=== PATIENT | male | born 1970 | race Caucasian/White ===

== ENCOUNTER 2019-12-29 15:36 | Emergency (ER) | payer OTHER, SELFPAY ==
--- NOTE | 2019-12-29 15:58 | XR_ITS ---
EXAMINATION: XR CHEST CLINICAL INFORMATION: Shortness of breath COMPARISON: None TECHNIQUE: Frontal view of the chest was obtained. FINDINGS: The cardiac and mediastinal contours are normal. The lungs are clear. There is no pleural effusion or pneumothorax. There is a left shoulder prosthesis. Bony structures are otherwise unremarkable. IMPRESSION: No evidence for acute disease in the chest.
--- NOTE | 2019-12-29 16:14 | ED_ITS ---
HPI - URI/Sore Throat General Chief Complaint: Dyspnea <CYNTHIA Hanson - Last Filed: 12/29/19 16:49> Stated Complaint: Sob <CYNTHIA Hanson - Last Filed: 12/29/19 16:49> Time Seen by Provider: 12/29/19 15:57 <CYNTHIA Hanson - Last Filed: 12/29/19 16:49> Source: patient <CYNTHIA Hanson - Last Filed: 12/29/19 16:49> Mode of arrival: ambulatory <CYNTHIA Hanson - Last Filed: 12/29/19 16:49> Limitations: no limitations <CYNTHIA Hanson - Last Filed: 12/29/19 16:49> History of Present Illness HPI Narrative: 49 y/o male presenting with cough, SOB, nasal congestion, upset stomach since yesterday. No known COVID exposure, he would like to get texted because he lives with his elderly mother. <CYNTHIA Hanson - Last Filed: 12/29/19 16:49> MD elicited complaint: cough and nasal congestion <CYNTHIA Hanson - Last Filed: 12/29/19 16:49> Onset (ago): day(s) (1) <CYNTHIA Hanson - Last Filed: 12/29/19 16:49> Consistency: intermittent <CYNTHIA Hanson - Last Filed: 12/29/19 16:49> Severity: mild <CYNTHIA Hanson - Last Filed: 12/29/19 16:49> Able to tolerate fluids by mouth: Yes <CYNTHIA Hanson - Last Filed: 12/29/19 16:49> Exacerbating factors: nothing <CYNTHIA Hanson - Last Filed: 12/29/19 16:49> Relieving factors: nothing <CYNTHIA Hanson - Last Filed: 12/29/19 16:49> Associated symptoms: headache, nasal congestion and cough <CYNTHIA Hanson - Last Filed: 12/29/19 16:49> Related Data Home Medications: Previous Rx's Medication Instructions Recorded albuterol sulfate 2 inh INHALATION Q4-6H PRN #1 ea NS 12/29/19 <CYNTHIA Hanson - Last Filed: 12/29/19 16:49> Allergies/Adverse Reactions: Allergies Allergy/AdvReac Type Severity Reaction Status Date / Time No Known Allergies Allergy Mild UNKNOWN Verified 12/29/19 16:31 <CYNTHIA Hanson - Last Filed: 12/29/19 16:49> Review of Systems Review of Systems: Constitutional: No Fever, No Chills ENT/Mouth: No sore throat, + Rhinorrhea, No Swallowing Difficulty Eyes: No Eye Pain, No Swelling, No Redness Cardiovascular: No Chest Pain, positive SOB, No Orthopnea, No Edema Respiratory: No Cough, No Sputum, + Wheezing, + dyspnea Gastrointestinal: No Nausea, No Vomiting, No Diarrhea, No abdominal Pain, No Hematochezia, No Melena Genitourinary: No Dysuria, No Urinary Frequency, No Hematuria Musculoskeletal: No joint pain, No Myalgias Skin: No Skin Lesions, No rash Neuro: No Weakness, No Numbness, No Dizziness, No Headache Psych: No Anxiety/Panic, + Depression related to COVID Heme/Lymph: No Bruising, No Lymphadenopathy Endocrine: No Polyuria, No Polydipsia All other 10 point ROS are negative. <CYNTHIA Hanson - Last Filed: 12/29/19 16:49> [facility] Past Medical History Medical History: Medical History (Updated 12/29/19 @ 16:44 by CYNTHIA Hanson) Bipolar 1 disorder <CYNTHIA Hanson - Last Filed: 12/29/19 16:49> Surgical History: Surgical History (Updated 12/29/19 @ 16:30 by Shannon Hussein) H/O knee surgery H/O shoulder surgery <CYNTHIA Hanson - Last Filed: 12/29/19 16:49> Social History Social History: Social History (Updated 12/29/19 @ 16:23 by CYNTHIA Hanson) Alcohol intake: never Smoking Status: Current every day smoker Use of substances other than those prescribed or required for medical reasons: No Advance Directives: No Advance Directives Information Provided: No <CYNTHIA Hanson Last Filed: 12/29/19 16:49> Physical Exam Vital Signs and I&O and Narrative: Vital Signs and I&O: Vital Signs Temp 99.7 F 12/29/19 16:28 Pulse 69 12/29/19 16:28 Resp 16 12/29/19 16:28 BP 109/64 12/29/19 16:28 Pulse Ox 98 12/29/19 16:28 Intake & Output 12/28/19 12/29/19 12/29/19 18:59 06:59 18:59 Weight 99.79 kg Body Mass Index 33.4 Appearance: Alert. Oriented X3. No acute distress. Eyes: Pupils equal, round and reactive to light. ENT: Pharynx normal. Neck: Normal inspection. Neck supple. CVS: Normal heart rate and rhythm. Pulses normal. Respiratory: No respiratory distress. expiratory wheezes throughout left lung, no distress, no rhonchi Abdomen: Soft and nontender. +BS x4 Skin: Skin warm and dry. Normal skin color. Normal skin turgor. No rashes. Extremities: No lower extremity edema. Neuro: Oriented X 3. No motor deficit. No sensory deficit. <CYNTHIA Hanson - Last Filed: 12/29/19 16:49> Vital Signs and I&O: Vital Signs Temp 99.7 F 12/29/19 16:28 Pulse 69 12/29/19 16:28 Resp 16 12/29/19 16:28 BP 109/64 12/29/19 16:28 Pulse Ox 98 12/29/19 16:28 Intake & Output 12/28/19 12/29/19 12/29/19 18:59 06:59 18:59 Weight 99.79 kg Body Mass Index 33.4 <Tony Flores DO - Last Filed: 12/29/19 17:02> Course Course Hospital Course: non-toxic appearing, VSS. Will test for COVID and get CXR given wheezes. denies hx ashtma or COPD. active smoker for the last 5 years. <CYNTHIA Hanson - Last Filed: 12/29/19 16:49> MDM - URI/Sore Throat Differential Diagnosis Differential diagnosis: Likely upper respiratory infection, sinusitis, viral infection, bronchitis, influenza and pharyngitis <CYNTHIA Hanson - Last Filed: 12/29/19 16:49> Critical Care Time Critical Care Time Critical Care Time: No <CYNTHIA Hanson - Last Filed: 12/29/19 16:49> Discharge Plan Discharge Clinical Impression: Acute viral syndrome <CYNTHIA Hanson Last Filed: 12/29/19 16:49> Patient Disposition: Home, Self-Care <CYNTHIA Hanson Last Filed: 12/29/19 16:49> Instructions: Viral Syndrome (ED), Wheezing (ED) <CYNTHIA Hanson - Last Filed: 12/29/19 16:49> Additional Instructions: You were tested for COVID-19 today. We will call you with the results in the next 2-3 days. Use albuterol inhaler and over the counter cold/flu medications for your symptoms. If you symptoms don't improve or worsen, come back to the ER or call 911. Follow up with your Primary Care Doctor this week. Stop smoking. <CYNTHIA Hanson - Last Filed: 12/29/19 16:49> Prescriptions: New albuterol sulfate 90 mcg/actuation aerosol powdr breath activated 2 inh inhalation Q4-6H PRN (Reason: shortness of breath or wheezing) Qty: 1 RF: 0 <CYNTHIA Hanson Last Filed: 12/29/19 16:49> Stand Alone Forms: Work/School Release <CYNTHIA Hanson Last Filed: 12/29/19 16:49>
[2019-12-29 16:28] VITALS: BP 109/64; PULSE 69; RESP 16; TEMP 37.6; O2SAT 98; BMI 33.4
== END 2019-12-29 17:07 | disposition home or self-care (01) ==
PROVIDERS: Physician Assistant; Emergency Provider Emergency Medicine
DX: B34.9 Viral infection, unspecified (principal); Z20.828 Contact with and (suspected) exposure to other viral communicable diseases; R50.9 Fever, unspecified
CPT/HCPCS: 36415; 71045; 87635; 99283; 99284

== ENCOUNTER 2020-03-04 14:13 | Outpatient (REF) | payer OTHER, SELFPAY | END 2020-03-04 14:14 | disposition home or self-care (01) | LOC: HO.LAB 14:13 | PROVIDERS: PCP Physician Assistant; Visit Provider Internal Medicine | DX: Z20.828 Contact with and (suspected) exposure to other viral communicable diseases (principal) | CPT/HCPCS: C9803; U0003 ==

== ENCOUNTER 2020-09-11 09:09 | Outpatient (REF) | payer OTHER, SELFPAY ==
[2020-09-11 10:28] LABS: Hematocrit 42.6 % (42-52); Mean Corpuscular HGB Conc 32.9 g/dl (31.0-36.0); Mean Corpuscular Volume 100.5 fL (80-98); Mean Platelet Volume 9.9 fL (9.4-12.4); Platelet Count 278 X10*3/uL (160-400); Red Blood Count 4.24 X10*6/uL (4.60-5.80); Red Cell Distribution Width 12.7 % (11.0-16.0); White Blood Count 6.6 X10*3/uL (4.8-10.8)
[2020-09-11 10:51] LABS: Alanine Aminotransferase 23 U/L (0-40); Albumin Level 4.5 g/dL (3.5-5.0); Alkaline Phosphatase 71 U/L (39-117); Anion Gap 12 (12-20); Aspartate Amino Transferase 21 U/L (5-37); Bilirubin Total 0.2 mg/dL (0.0-1.0); Blood Urea Nitrogen 15 mg/dL (9-16); Calcium 10.5 mg/dL (8.4-10.2); Carbon Dioxide 28 mmol/L (22-29); Chloride 107 mmol/L (96-108); Cholesterol 209 mg/dL; Estimated Glomerular Filt Rate > 60; Glucose Fasting 135 mg/dL (60-99); HDL Cholesterol 46 mg/dL; LDL Cholesterol Calculated 129 mg/dl; Lithium 0.67 mmol/L (0.60-1.20); Potassium 4.5 mmol/L (3.3-5.1); Sodium 142 mmol/L (135-145); Total Protein 6.7 g/dL (6.5-8.0); Triglycerides 172 mg/dL
[2020-09-11 11:13] LABS: TSH reflex Free T4 1.87 uIU/mL (0.32-4.0)
== END 2020-09-11 09:10 | disposition home or self-care (01) ==
LOC: HO.10HDL 09:09
PROVIDERS: Absent Provider Clinical Nurse Specialist Psychiatric/Mental Health, Adult; Visit Provider Physician Assistant
DX: I10 Essential (primary) hypertension (principal); F31.9 Bipolar disorder, unspecified; Z13.29 Encounter for screening for other suspected endocrine disorder; Z79.899 Other long term (current) drug therapy
CPT/HCPCS: 36415; 80053; 80061; 80178; 84443; 85027

== ENCOUNTER 2021-03-11 12:15 | Outpatient (REF) | payer OTHER, SELFPAY ==
[2021-03-11 14:06] LABS: Estimated Average Glucose 94 mg/dL; Hemoglobin A1c % 4.9 %
[2021-03-11 14:07] LABS: Appearance Urine CLEAR; Color Urine YELLOW; Glucose Urine UA NEG (NEG); Leukocyte Esterase Urine NEG (NEG); Nitrite Urine NEG (NEG); Specific Gravity - Urine <= 1.005 (1.005-1.025); Urine Blood NEG (NEG); Urine Ketones NEG (NEG); Urine Protein NEG (NEG-TRACE)
[2021-03-11 14:09] LABS: Creatinine Urine 64.08 mg/dL; Osmolality Urine 262 mosm/kg (373-1093); Total Protein Urine Random < 7 mg/dL (<12)
[2021-03-11 14:16] LABS: Calcium 10.9 mg/dL (8.4-10.2)
[2021-03-11 14:17] LABS: Anion Gap 12 (12-20); Blood Urea Nitrogen 11 mg/dL (9-16); Calcium 10.5 mg/dL (8.4-10.2); Carbon Dioxide 26 mmol/L (22-29); Chloride 105 mmol/L (96-108); Estimated Glomerular Filt Rate > 60; Potassium 4.4 mmol/L (3.3-5.1); Sodium 139 mmol/L (135-145)
[2021-03-11 14:37] LABS: Vitamin D 25-OH Total 34.4 ng/mL (>30)
[2021-03-12 16:31] LABS: Calcium (PTHI) 10.7 mg/dL (8.6-10.3); PTHI 50 pg/mL (14-64)
== END 2021-03-11 12:16 | disposition home or self-care (01) ==
LOC: HO.10HDL 12:15
PROVIDERS: Internal Medicine Nephrology; Visit Provider Physician Assistant
DX: E83.52 Hypercalcemia (principal); R73.09 Other abnormal glucose
CPT/HCPCS: 36415; 80051; 81003; 82306; 82310; 82565; 83036; 83935; 83970; 84156; 84520; 84550

== ENCOUNTER 2021-11-17 10:14 | Outpatient (REF) | payer OTHER, SELFPAY ==
[2021-11-17 11:50] LABS: Hematocrit 43.3 % (42.0-52.0); Hemoglobin 14.5 g/dl (14.0-18.0); Mean Corpuscular HGB Conc 33.5 g/dl (31.0-36.0); Mean Corpuscular Hemoglobin 32.1 pg (27.0-33.0); Mean Corpuscular Volume 95.8 fL (80.0-98.0); Platelet Count 285 X10*3/uL (160-400); Red Blood Count 4.52 X10*6/uL (4.60-5.80); Red Cell Distribution Width 12.5 % (11.0-16.0); White Blood Count 8.8 X10*3/uL (4.8-10.8)
[2021-11-17 12:17] LABS: Estimated Average Glucose 88 mg/dL; Hemoglobin A1c % 4.7 %
[2021-11-17 12:42] LABS: Alanine Aminotransferase 25 U/L (0-40); Albumin Level 4.4 g/dL (3.5-5.0); Alkaline Phosphatase 60 U/L (39-117); Anion Gap 13 (12-20); Aspartate Amino Transferase 22 U/L (5-37); Bilirubin Total 0.5 mg/dL (0.0-1.0); Blood Urea Nitrogen 13 mg/dL (9-16); Carbon Dioxide 25 mmol/L (22-29); Chloride 106 mmol/L (96-108); Cholesterol 230 mg/dL; Estimated Glomerular Filt Rate > 60; Glucose Fasting 103 mg/dL (60-99); HDL Cholesterol 36 mg/dL; LDL Cholesterol Calculated 147 mg/dl; Potassium 4.3 mmol/L (3.3-5.1); Sodium 140 mmol/L (135-145); Total Protein 6.9 g/dL (6.5-8.0); Triglycerides 236 mg/dL
[2021-11-17 12:47] LABS: Syphilis Screen Nonreactive (Nonreactive)
[2021-11-17 12:51] LABS: HBS Num1 0.32 mIU/mL (0-7.99); HBc Num1 0.23 S/CO (0.00-0.79); HBsAGNum1 0.18 S/CO (0.00-0.99); HIV AB/AG Nonreactive (Nonreactive); HIV Num 1 0.07 S/CO (0.00-0.99); Hepatitis B Core Antibody Nonreactive (Nonreactive); Hepatitis B Surface Antigen Negative (Negative); ~HepC Num1 0.15 S/CO (0.00-0.79); ~Hepatitis B Surface Antibody NONREACTIVE (Nonreactive); ~Hepatitis C Antibody Nonreactive (Nonreactive)
[2021-11-17 12:52] LABS: TSH reflex Free T4 2.05 uIU/mL (0.32-4.0)
[2021-11-17 13:37] LABS: CT PCR NOT DETECTED (Not Detect.); NG PCR NOT DETECTED (Not Detect.)
[2021-11-18 16:13] LABS: Calcium (PTHI) 10.2 mg/dL (8.6-10.3); PTHI 68 pg/mL (16-77)
== END 2021-11-17 10:15 | disposition home or self-care (01) ==
LOC: HO.LAB 10:14
PROVIDERS: PCP Physician Assistant; Visit Provider Physician Assistant
DX: Z11.3 Encounter for screening for infections with a predominantly sexual mode of transmission (principal); Z11.4 Encounter for screening for human immunodeficiency virus [HIV]; E83.52 Hypercalcemia; I10 Essential (primary) hypertension; Z20.2 Contact with and (suspected) exposure to infections with a predominantly sexual mode of transmission
CPT/HCPCS: 80053; 80061; 83036; 83970; 84443; 85027; 86704; 86706; 86780; 86803; 87340; 87389; 87491; 87591

== ENCOUNTER 2022-01-26 11:37 | Outpatient (REF) | payer OTHER, SELFPAY ==
--- NOTE | ~2022-01-26 | XR_ITS ---
EXAMINATION: XR BILATERAL HIPS WITH AP PELVIS CLINICAL INFORMATION: Pain COMPARISON: Previous x-ray July 2018 TECHNIQUE: AP view of the pelvis and single views of each hip were obtained. FINDINGS: There is moderate to severe right hip arthritis with joint space narrowing, osteophyte formation and subchondral subchondral cyst formation. This is increased from July 2018 exam. There is mild left hip arthritis with joint space narrowing and osteophyte formation. No fracture or dislocation. There is proliferative bone reaction adjacent to the left iliac crest. Sacroiliac joints are normal. There are degenerative changes of the visualized lower lumbar spine. XR/XR hip BI w PEL1V IMPRESSION: Bilateral hip arthritis, right greater than left.
--- NOTE | ~2022-01-26 | XR_ITS ---
EXAMINATION: KNEE X-RAY CLINICAL INFORMATION: Pain COMPARISON: None TECHNIQUE: Standing AP view of both knees and lateral and sunrise view of the right knee FINDINGS: Right: There is mild varus angulation. Bone alignment is otherwise normal. No fracture or dislocation. There is joint space narrowing at the medial femoral tibial joint. There are small osteophytes at the patellofemoral joint. There is no joint effusion. Standing AP view of the left knee is unremarkable. XR/XR knee standing BI IMPRESSION: Right knee: Mild degenerative changes. Unremarkable standing AP view of the left knee.
--- NOTE | ~2022-01-26 | XR_ITS ---
EXAMINATION: KNEE X-RAY CLINICAL INFORMATION: Pain COMPARISON: None TECHNIQUE: Standing AP view of both knees and lateral and sunrise view of the right knee FINDINGS: Right: There is mild varus angulation. Bone alignment is otherwise normal. No fracture or dislocation. There is joint space narrowing at the medial femoral tibial joint. There are small osteophytes at the patellofemoral joint. There is no joint effusion. Standing AP view of the left knee is unremarkable. XR/XR knee RT 3V IMPRESSION: Right knee: Mild degenerative changes. Unremarkable standing AP view of the left knee.
[2022-01-26 12:10] LABS: Hematocrit 43.8 % (42.0-52.0); Hemoglobin 14.8 g/dl (14.0-18.0); Mean Corpuscular HGB Conc 33.8 g/dl (31.0-36.0); Mean Corpuscular Hemoglobin 31.5 pg (27.0-33.0); Mean Corpuscular Volume 93.2 fL (80.0-98.0); Mean Platelet Volume 9.8 fL (9.4-12.4); Platelet Count 287 X10*3/uL (160-400); Red Cell Distribution Width 12.4 % (11.0-16.0); White Blood Count 10.7 X10*3/uL (4.8-10.8)
[2022-01-26 12:55] LABS: Lithium 0.92 mmol/L (0.60-1.20)
[2022-01-26 13:01] LABS: TSH reflex Free T4 1.59 uIU/mL (0.32-4.0)
[2022-01-26 13:03] LABS: Thyroid Stimulating Hormone 1.65 uIU/mL (0.32-4.0)
[2022-01-26 13:06] LABS: Anion Gap 17 (12-20); Blood Urea Nitrogen 20 mg/dL (9-16); Calcium 10.3 mg/dL (8.4-10.2); Carbon Dioxide 23 mmol/L (22-29); Chloride 102 mmol/L (96-108); Estimated Glomerular Filt Rate > 60; Glucose Random 99 mg/dL (60-115); Potassium 3.9 mmol/L (3.3-5.1); Sodium 138 mmol/L (135-145)
[2022-01-26 13:15] LABS: Anion Gap 17 (12-20); Carbon Dioxide 24 mmol/L (22-29); Chloride 101 mmol/L (96-108); Potassium 3.9 mmol/L (3.3-5.1); Sodium 138 mmol/L (135-145)
[2022-01-26 13:16] LABS: Alanine Aminotransferase 25 U/L (0-40); Albumin Level 4.5 g/dL (3.5-5.0); Alkaline Phosphatase 70 U/L (39-117); Aspartate Amino Transferase 23 U/L (5-37); Bilirubin Total < 0.2 mg/dL (0.0-1.0); Blood Urea Nitrogen 19 mg/dL (9-16); Calcium 10.5 mg/dL (8.4-10.2); Estimated Glomerular Filt Rate > 60; Glucose Fasting 101 mg/dL (60-99)
== END 2022-01-26 11:38 | disposition home or self-care (01) ==
LOC: HO.LAB 11:37
PROVIDERS: Absent Provider Physician Assistant; PCP Physician Assistant; Visit Provider Clinical Nurse Specialist Psychiatric/Mental Health, Adult
DX: Z12.5 Encounter for screening for malignant neoplasm of prostate (principal); I10 Essential (primary) hypertension; G89.29 Other chronic pain; M25.561 Pain in right knee; M25.562 Pain in left knee; M25.551 Pain in right hip; M25.552 Pain in left hip; Z79.899 Other long term (current) drug therapy
CPT/HCPCS: 36415; 73521; 73560; 73562; 73565; 80048; 80053; 80178; 84153; 84443; 85027

== ENCOUNTER 2022-02-24 12:14 | Outpatient (REF) | payer OTHER, SELFPAY ==
--- NOTE | ~2022-02-24 | XR_ITS ---
EXAMINATION: XR PELVIS CLINICAL INFORMATION: Hip pain. COMPARISON: None TECHNIQUE: AP view of the pelvis. FINDINGS: There is severe loss in right hip joint space. The left hip joint space is minimally reduced. There is bilateral periarticular spurring. No visible acute fracture, dislocation or lytic process seen. SI joints are symmetrical. The pelvic bones are symmetrical. There is soft tissue calcifications below the pubic symphysis. XR/XR pelvis 1-2V IMPRESSION: 1. Severe degenerative changes right hip joint. No visible acute fracture or dislocation seen. 2. Mild degenerative changes bilateral hip joints slightly greater on the right side.
== END 2022-02-24 12:15 | disposition home or self-care (01) ==
LOC: HO.HOSX 12:14
PROVIDERS: Visit Provider Orthopaedic Surgery
DX: M16.0 Bilateral primary osteoarthritis of hip (principal); N25.1 Nephrogenic diabetes insipidus; F31.9 Bipolar disorder, unspecified
CPT/HCPCS: 72170; 99202

== ENCOUNTER 2022-03-29 12:53 | Outpatient (REF) | payer OTHER, SELFPAY ==
--- NOTE | 2022-03-29 13:44 | ECG_ITS ---
Test Reason : cp Blood Pressure : / mmHG Vent. Rate : 063 BPM Atrial Rate : 063 BPM P-R Int : 196 ms QRS Dur : 100 ms QT Int : 416 ms P-R-T Axes : 065 038 000 degrees QTc Int : 425 ms Normal sinus rhythm Normal ECG When compared with ECG of 07-JAN-2015 13:09, Vent. rate has decreased BY 34 BPM Referred By: Perry Tello Electronically Signed By:FREDRICK DURAND
[2022-03-29 13:58] LABS: MANUAL DIFF FLAG NO
[2022-03-29 15:06] LABS: Basophils Percent Auto 0.4 % (0-2); Eosinophils Percent Auto 0.2 % (0-4); Hematocrit 41.9 % (42.0-52.0); Hemoglobin 13.9 g/dl (14.0-18.0); Imm Gran Abs Auto 0.06 X10*3/uL (0.00-0.03); Imm Gran Pct Auto 0.5 % (0.0-0.4); Lymphocytes Absolute Auto 1.8 X10*3/uL (1.2-4.9); Lymphocytes Percent Auto 15.7 % (20-40); Mean Corpuscular HGB Conc 33.2 g/dl (31.0-36.0); Mean Corpuscular Hemoglobin 31.2 pg (27.0-33.0); Mean Corpuscular Volume 93.9 fL (80.0-98.0); Mean Platelet Volume 10.1 fL (9.4-12.4); Monocytes Absolute Auto 0.5 X10*3/uL (0.1-1.2); Monocytes Percent Auto 4.7 % (2-11); Neutrophils Absolute Auto 8.8 x10*3/uL (2.0-8.3); Neutrophils Percent Auto 78.5 % (45-73); Platelet Count 257 X10*3/uL (160-400); Red Blood Count 4.46 X10*6/uL (4.60-5.80); Red Cell Distribution Width 12.8 % (11.0-16.0); White Blood Count 11.2 X10*3/uL (4.8-10.8)
[2022-03-29 15:44] LABS: Anion Gap 9 (12-20); Blood Urea Nitrogen 15 mg/dL (9-16); Calcium 10.1 mg/dL (8.4-10.2); Carbon Dioxide 30 mmol/L (22-29); Chloride 102 mmol/L (96-108); Estimated Glomerular Filt Rate > 60; Glucose Random 88 mg/dL (60-115); Potassium 4.1 mmol/L (3.3-5.1); Sodium 137 mmol/L (135-145)
== END 2022-03-29 12:54 | disposition home or self-care (01) ==
LOC: HO.LAB 12:53
PROVIDERS: PCP Physician Assistant; Visit Provider Orthopaedic Surgery
DX: Z01.810 Encounter for preprocedural cardiovascular examination (principal)
CPT/HCPCS: 36415; 80048; 85025; 93005

== ENCOUNTER 2022-04-19 06:24 | Outpatient (REF) | payer OTHER, SELFPAY | END 2022-04-19 06:25 | disposition home or self-care (01) | LOC: CF 06:24 | PROVIDERS: Visit Provider Anesthesiology | DX: Z13.89 Encounter for screening for other disorder (principal) ==

== ENCOUNTER → 2022-04-21 12:19 | Outpatient (BNVA) | payer OTHER, SELFPAY | PROVIDERS: PCP Physician Assistant; Visit Provider Physician Assistant | DX: Z13.89 Encounter for screening for other disorder (principal) ==

== ENCOUNTER 2022-04-27 06:11 | Inpatient (IN) | payer OTHER, SELFPAY ==
[2022-04-20 12:07] VITALS: BP 93/54; PULSE 62; RESP 20; O2SAT 97; BMI 29.5
--- NOTE | 2022-04-20 12:10 | P.CONAN_ITS ---
Documented by User: Floresita Bronson NP 04/20/22 12:34 HPI - Anesthesia Eval Consult details Narrative: 52yo M for Right Hip Total Replacement PCP cleared [facility] Active Problems Active Problems: All Active Problems (Updated 04/20/22 @ 12:03 by Nancy Sheridan RN) HTN (hypertension) (Acute) Screening for hypercholesterolemia (Acute) Screening for hypothyroidism (Acute) Hypercalcemia (Acute) Annual physical exam (Acute) Impaired glucose metabolism (Acute) Diabetes insipidus, nephrogenic (Acute) Bilateral chronic knee pain (Acute) Colon cancer screening (Acute) Bilateral hip pain (Acute) Right knee pain (Acute) GERD (gastroesophageal reflux disease) (Acute) Tobacco dependence (Acute) Osteoarthritis, hip, bilateral (Acute) Osteoarthritis of right hip (Acute) Bipolar 1 disorder (Acute) Sinusitis (Acute) Past Medical History Medical History Bipolar 1 disorder COVID-19 vaccine series completed Depression Family history of malignant hyperthermia GERD (gastroesophageal reflux disease) HTN (hypertension) Nephrogenic diabetes insipidus Osteoarthritis Sinusitis Family History Family History Mother No problems noted. Father No problems noted. Other Mental health disorder Substance use disorder Family history of problems with anesthesia: Yes (Strong family hx of MH) Surgical History Surgical History H/O knee surgery H/O shoulder surgery Hx of shoulder surgery History of Problems with Anesthesia: No Social History Social History Household Members Other:: mother Housing: House Are you a primary personal care aid to a significant other at home: No Do you presently have visiting nurse or other home services: No Alcohol intake: former Year quit: 18 m Patient Tobacco Use Status: Current everyday Tobacco user Tobacco use type: Cigarette Cigarettes Per Day: 6 Years Smoked: 13 e-Cigarette/Vaping Use: Never Used Use of substances other than those prescribed or required for medical reasons: No Have you been hit, kicked, punched, or otherwise hurt by someone within the past year? If so, by whom?: No Are you DNR?: No Advance Directives: No (mother is primary contact) Advance Directives Information Provided: No (patient declines) Advance Directives on File: No Recently lost weight without trying: No Eating poorly because of decreased appetite: No Nutrition Risks: No Nutritional Risk Poor oral hygiene: No service: No Current occupational status: disabled Cognitive needs: No Hearing needs: No Vision needs: No Narrative Narrative: No recent illness No CP/SOB within limits of pain Meds Allergies Allergy/AdvReac Type Severity Reaction Status Date / Time No Known Allergies Allergy Verified 04/27/22 07:05 Home Medications Medication Instructions Recorded Confirmed Last Taken Type amiloride 5 mg tablet 10 mg PO DAILY 03/05/20 04/19/22 04/26/22 History hydrochlorothiazide 50 mg tablet 50 mg PO DAILY 03/05/20 04/19/22 04/26/22 History lithium carbonate 300 mg capsule 300 mg PO BEDTIME 03/05/20 04/19/22 04/26/22 History lithium carbonate 600 mg capsule 600 mg PO BEDTIME 03/05/20 04/20/22 04/26/22 History olanzapine 10 mg disintegrating 10 mg PO BEDTIME 03/05/20 04/19/22 04/26/22 History tablet propranolol 20 mg tablet 20 mg PO TID 03/05/20 04/19/22 04/26/22 History zolpidem 10 mg tablet 10 mg PO BEDTIME PRN Insomnia 03/05/20 04/19/22 04/26/22 History hydroxyzine HCl 25 mg tablet 25 mg PO DAILY 11/24/20 04/27/22 04/26/22 History buspirone 5 mg tablet 5 mg PO BID 01/06/22 04/19/22 04/26/22 History diazepam 10 mg tablet 10 mg PO BID 03/29/22 04/19/22 04/26/22 History olanzapine 20 mg disintegrating 20 mg PO BEDTIME 04/20/22 04/20/22 04/26/22 History tablet Exam Exam Date and Time: April 20, 2022 1210 Pertinent Lab Results Pertinent Lab Results: Laboratory Tests 03/29/22 03/29/22 13:57 13:57 WBC 11.2 H Hgb 13.9 L Hct 41.9 L Plt Count 257 Sodium 137 Potassium 4.1 Chloride 102 Carbon Dioxide 30 H BUN 15 Creatinine 1.17 Narrative Narrative: EKG 03/2022 Vent. Rate : 063 BPM ? ? Atrial Rate : 063 BPM ?? P-R Int : 196 ms? QRS Dur : 100 ms ? ? QT Int : 416 ms ? ? ? P-R-T Axes : 065 038 000 degrees ?? QTc Int : 425 ms ? Normal sinus rhythm Normal ECG When compared with ECG of 07-JAN-2015 13:09, Vent. rate has decreased BY? 34 BPM Airway Mallampati Class: IV TM Dist: >3cm Neck ROM: Full Loose/Missing/Broken Teeth: Yes (Missing molars) Heart: RRR Lungs: CTAB Assessment and Plan Assessment Anesthesia Assessment: Anesthesia Plan Discussed, Smoking Cess. Discussed and PAT Visit Final Anesthetic Review Family History of Problems with Anesthesia: Yes (Strong family hx of MH) History of Problems with Anesthesia: No Documented by User: Davidson Birmingham MD 04/27/22 14:35 [facility] Past Medical History Medical History Bipolar 1 disorder COVID-19 vaccine series completed Depression Family history of malignant hyperthermia GERD (gastroesophageal reflux disease) HTN (hypertension) Nephrogenic diabetes insipidus Osteoarthritis Sinusitis Family History Family History Mother No problems noted. Father No problems noted. Other Mental health disorder Substance use disorder Surgical History Surgical History H/O knee surgery H/O shoulder surgery Hx of shoulder surgery Social History Social History Household Members Other:: mother Housing: House Are you a primary personal care aid to a significant other at home: No Do you presently have visiting nurse or other home services: No Alcohol intake: former Year quit: 18 m Patient Tobacco Use Status: Current everyday Tobacco user Tobacco use type: Cigarette Cigarettes Per Day: 6 Years Smoked: 13 e-Cigarette/Vaping Use: Never Used Use of substances other than those prescribed or required for medical reasons: No Have you been hit, kicked, punched, or otherwise hurt by someone within the past year? If so, by whom?: No Are you DNR?: No Advance Directives: No (mother is primary contact) Advance Directives Information Provided: No (patient declines) Advance Directives on File: No Recently lost weight without trying: No Eating poorly because of decreased appetite: No Nutrition Risks: No Nutritional Risk Poor oral hygiene: No service: No Current occupational status: disabled Cognitive needs: No Hearing needs: No Vision needs: No Meds Allergies Allergy/AdvReac Type Severity Reaction Status Date / Time No Known Allergies Allergy Verified 04/27/22 07:05 Home Medications Medication Instructions Recorded Confirmed Last Taken Type amiloride 5 mg tablet 10 mg PO DAILY 03/05/20 04/19/22 04/26/22 History hydrochlorothiazide 50 mg tablet 50 mg PO DAILY 03/05/20 04/19/22 04/26/22 History lithium carbonate 300 mg capsule 300 mg PO BEDTIME 03/05/20 04/19/22 04/26/22 History lithium carbonate 600 mg capsule 600 mg PO BEDTIME 03/05/20 04/20/22 04/26/22 History olanzapine 10 mg disintegrating 10 mg PO BEDTIME 03/05/20 04/19/22 04/26/22 History tablet propranolol 20 mg tablet 20 mg PO TID 03/05/20 04/19/22 04/26/22 History zolpidem 10 mg tablet 10 mg PO BEDTIME PRN Insomnia 03/05/20 04/19/22 04/26/22 History hydroxyzine HCl 25 mg tablet 25 mg PO DAILY 11/24/20 04/27/22 04/26/22 History buspirone 5 mg tablet 5 mg PO BID 01/06/22 04/19/22 04/26/22 History diazepam 10 mg tablet 10 mg PO BID 03/29/22 04/19/22 04/26/22 History olanzapine 20 mg disintegrating 20 mg PO BEDTIME 04/20/22 04/20/22 04/26/22 History tablet Exam Airway Loose/Missing/Broken Teeth: Yes (Missing molars, chipped teeth ) Assessment and Plan Assessment Anesthesia Assessment: Chart Reviewed Final Anesthetic Review NPO: Yes ASA Class: III Final Preanesthetic Review: Meds/Allgs Chart Reviewed, Consent Obtained/Reviewed and Anes Risks/Benef Reviewed Patient Risk: High Procedure Risk: Intermediate Anesthetic Plan Anesthetic Plan: GA Disposition: Standard PACU
[2022-04-20 14:40] LABS: MRSA Nasal PCR NEGATIVE (Negative); SA Nasal PCR NEGATIVE (Negative)
[2022-04-27] VITALS (15 sets, daily range): BP systolic 95–130; BP diastolic 59–75; PULSE 50–86; RESP 10–18; TEMP 35.9–37.1; O2SAT 96–100
--- NOTE | ~2022-04-27 | XR_ITS ---
EXAMINATION: XR PELVIS CLINICAL INFORMATION: Status post right total hip arthroplasty COMPARISON: Pelvis x-ray on 02/24/2022 TECHNIQUE: AP view of the pelvis. FINDINGS: Postsurgical changes from right hip arthroplasty. There is subcutaneous air in the soft tissues and overlying skin tana. Orthopedic hardware is intact. There is moderate left hip joint space narrowing. XR/XR pelvis 1-2V IMPRESSION: Expected postoperative appearance of right total hip arthroplasty.
[2022-04-27] MEDS: oxyCODONE HCl ER 10 MG TAB.ER.12H PO ×2 (06:26→19:29)
[2022-04-27 06:36] LABS: Hematocrit 42.4 % (42.0-52.0); Hemoglobin 14.5 g/dl (14.0-18.0)
[2022-04-27 06:36] LABS: COVID-19 Test Negative (Negative); IDNOW Serial# 6674DD1D
[2022-04-27] MEDS: 0.9 % Sodium Chloride 1,000 ML 100 ML IVCONT (07:04)
--- NOTE | 2022-04-27 07:32 | MHC.SHP ---
Pre-Procedural Eval Section A Date of Service: 04/27/22 The patient is an INPATIENT: No Changes since office visit: Yes Cold of Flu in the past 2 weeks, Yes New Medical Problems, Yes Changes in Medication and Yes Patient answered all questions The History & Physical has been completed within 30 days and I have reviewed it.: Yes Section B Chief Complaint: s/p RTHA Allergies: Allergies Allergy/AdvReac Type Severity Reaction Status Date / Time No Known Allergies Allergy Verified 04/27/22 07:05 Plan I have reviewed the history and physical and performed a pertinent physical examination on my patient. No changes have occurred unless specified. Time Spent With Patient Time: Total time managing care of this patient today ____ minutes.
--- NOTE | 2022-04-27 07:48 | PHA.MEDREC ---
Pharmacy Consult ? Medication Reconciliation Pharmacy has completed the medication reconciliation. Reviewed med rec done by nursing
[2022-04-27] MEDS: ceFAZolin Sodium/Dextrose,Iso 2 GM/50 ML PIGGYBACK IV ×2 (08:02→14:22)
[2022-04-27] MEDS: Acetaminophen 1,000 MG/100 ML PIGGYBACK 400 MG IV (09:45)
--- NOTE | 2022-04-27 09:55 | PM.OP ---
Brief Operative Note Date of Service: 04/27/22 Pre-op diagnosis: Right hip OA Post-op diagnosis: same Procedure: Right NAKUL Implants: Nawaf Trident 2 58 with posterior lip liner [place] Accolade 2 #4 127 deg with +7.5 36 ceramic femoral head Surgeon: Perry Tello MD Anesthesia: GETA and local Was an Luncheonette Operator used for this Procedure?: Yes Luncheonette Operator: Becki Corona Estimated blood loss (mL): 200 IV fluids (mL): 1,000 Pathology: other Condition: stable Disposition: PACU
--- NOTE | 2022-04-27 10:02 | W.PM.OPN ---
Operative Note Operative Note Date of Service: 04/27/22 Narrative: Date of Service: 04/27/22 Pre-op diagnosis: Right hip OA Post-op diagnosis: same Procedure: Right NAKUL Implants: [place] Trident 2 58 with posterior lip liner Nawaf Accolade 2 #4 127 deg with +7.5 36 ceramic femoral head Surgeon: Perry Tello MD Anesthesia: GETA and local Was an System Development Manager used for this Procedure?: Yes System Development Manager: Becki Corona Estimated blood loss (mL): 200 IV fluids (mL): 1,000 Pathology: other Condition: stable Disposition: PACU Procedure in detail: Patient was brought into the operating room and placed in the right lateral decubitus position. All bony prominences were well padded and the limb was prepped and draped in standard sterile fashion. A time-out was called to identify proper site procedure proper surgeon IV antibiotics and 1 g of transaxemic acid were administered. I began by making a curvilinear incision over the posterolateral aspect of the greater trochanter. Dissection was taken down to the tensor fascia which was incised in line with the incision and a Charnley retractor was placed. Cautery was used to maintain hemostasis. The hip was internally rotated and the external rotators were identified. The vessels were cauterized and a full-thickness capsular/external rotator layer was developed starting just proximal to the piriformis. This layer was tagged and a dull Hohmann retractor was placed underneath the neck in the hip was dislocated. A neck cut was made 1 cm proximal to the lesser trochanter and the head and neck were removed and measured 54mm on the back table. I then removed the labrum and cauterized the fovea. I started with a 48 reamer and medialized to the inner table. I sequentially reamed up to a size 57 and impacted a 58mm cup at 45 degrees of inclination and 25 degrees of version. I then placed a trial liner and turned by attention to the femur. I identified the piriformis insertion and used this as a starting point for my osiel cutter. The medius tendon was protected with a Hibs retractor. A Charnley awl was inserted in the canal and a curved curette used to remove the lateral bone. I irrigated copiously. I then sequentially broached in the patient's natural version to a size 4 and placed my trial implants. I used a #4/127/+7.5 based on my pre-operative template. Using a trail head I took the hip through range of motion. I was satisfied with the stability. I removed all instrumentation and copiously irrigated. I placed my final femoral implant and again took the hip through range of motion and was satisfied with the stability and length. A 20 deg posterior lipped liner was oimpacted in place and I turned my attention to the femur.The final 7.5 implant was impacted in place and the hip reduced. A Werewolf cautery wand was used to maintain hemostasis over the capsule and meniscal beds, the gutters and peripatellar soft tissues. I then irrigated for 3 minutes with iodine and placed 1 g of local transaxemic acid. I performed a capsular closure with 2.0 fiberwire, Nicko's fascia with 0 Vicryl, subcuticular with 2-0 Vicryl and the skin with tana. Patient was placed into a sterile dressing. Radiographs were completed prior to extubation. I was satisfied with the post operative radiographs. Patient was extubated brought to the recovery room in stable condition. There were no known complications.
[2022-04-27] MEDS: Lactated Ringers 1,000 ML 100 ML IVCONT ×2 (10:45→19:27)
[2022-04-27] MEDS: Propranolol HCL 20 MG TABLET PO ×2 (14:22→19:28)
--- NOTE | 2022-04-27 15:22 | P.CONIM_ITS ---
History of Present Illness Data of Consult Service Date: 04/27/22 Primary Care Provider: Basim Pruett PA-C HPI Reason for consult: DI 52M pmh biploar, lithium induced diabetes insipidus, admitted for elective r ight JOSEFA. postoperatively feeling well, pain controlled, denies chest pain, sob, fever, chills. Review of Systems Review of Systems: Yes all other systems are reviewed and are negative [facility] Medical History Bipolar 1 disorder COVID-19 vaccine series completed Depression Family history of malignant hyperthermia GERD (gastroesophageal reflux disease) HTN (hypertension) Nephrogenic diabetes insipidus Osteoarthritis Sinusitis Family History Mother No problems noted. Father No problems noted. Other Mental health disorder Substance use disorder Surgical History H/O knee surgery H/O shoulder surgery Hx of shoulder surgery Social History Household Members Other:: mother Housing: House Are you a primary career coordinator to a significant other at home: No Do you presently have visiting nurse or other home services: No Alcohol intake: former Year quit: 18 m Patient Tobacco Use Status: Current everyday Tobacco user Tobacco use type: Cigarette Cigarettes Per Day: 6 Years Smoked: 13 e-Cigarette/Vaping Use: Never Used Use of substances other than those prescribed or required for medical reasons: No Currently Displaying Signs/Symptoms of Drug Intoxication Withdrawal: No Have you been hit, kicked, punched, or otherwise hurt by someone within the past year? If so, by whom?: No Are you DNR?: No Advance Directives: No (mother is primary contact) Advance Directives Information Provided: No (patient declines) Advance Directives on File: No Recently lost weight without trying: No Eating poorly because of decreased appetite: No Nutrition Risks: No Nutritional Risk Poor oral hygiene: No service: No Current occupational status: disabled Cognitive needs: No Hearing needs: No Vision needs: No Meds Allergies Allergy/AdvReac Type Severity Reaction Status Date / Time No Known Allergies Allergy Verified 04/27/22 07:05 Active Medications: Current Medications Acetaminophen (Acetaminophen 325 Mg Tablet) 650 mg PO Q6H PRN PRN Reason: Pain, Mild (Pain Scale 1-3) Aspirin (Aspirin 325 Mg Tablet) 325 mg PO BID [facility] Buspirone HCl (Buspirone Hcl 5 Mg Tablet) 5 mg PO BID [facility] Celecoxib (Celecoxib 200 Mg Capsule) 200 mg PO BID [facility] Diazepam (Diazepam 5 Mg Tablet) 10 mg PO BID [facility] Docusate Sodium (Docusate Sodium 100 Mg Capsule) 100 mg PO BID [facility] Fentanyl (Fentanyl Citrate/Pf 100 Mcg/2 Ml Vial) 25 mcg IVPUSH Q5M PRN; Protocol PRN Reason: Pain, Moderate (Pain Scale 4-6 Hydrochlorothiazide (Hydrochlorothiazide 50 Mg Tablet) 50 mg PO DAILY [facility]; Protocol Hydromorphone HCl (Hydromorphone Hcl 0.5 Mg/0.5 Ml Syringe) 0.25 mg IVPUSH Q5M PRN; Protocol PRN Reason: Pain, Severe (Pain Scale 7-10) Hydromorphone HCl (Hydromorphone Hcl 0.5 Mg/0.5 Ml Syringe) 0.25 mg IVPUSH Q4H PRN; Protocol PRN Reason: Pain, Severe (Pain Scale 7-10) Hydroxyzine HCl (Hydroxyzine Hcl 25 Mg Tablet) 25 mg PO DAILY [facility] Lactated Ringer's (Lr) 1,000 mls @ 50 mls/hr IVCONT .Q20H [facility] Last Admin: 04/27/22 13:53 Dose: Not Given Lactated Ringer's (Lr) 1,000 mls @ 100 mls/hr IVCONT .Q10H [facility] Last Admin: 04/27/22 10:45 Dose: 100 mls/hr [place] Carbonate ([place] Carbonate 300 Mg Capsule) 300 mg PO BEDTIME [facility] [place] Carbonate ([place] Carbonate 300 Mg Capsule) 600 mg PO BEDTIME [facility] Olanzapine (Olanzapine Odt 10 Mg Tab.Rapdis) 10 mg TRANSLINGU BEDTIME [facility] Olanzapine (Olanzapine Odt 10 Mg Tab.Rapdis) 20 mg TRANSLINGU BEDTIME [facility] Omeprazole (Omeprazole 20 Mg Capsule.Dr) 20 mg PO DAILY@0630 [facility] Ondansetron HCl (Ondansetron Hcl 4 Mg/2 Ml Vial) 4 mg IVPUSH Q8H PRN PRN Reason: Nausea and Vomiting Oxycodone HCl (Oxycodone Hcl Immed Release 5 Mg Tablet) 5 mg PO Q4H PRN PRN Reason: Pain, Moderate (Pain Scale 4-6 Oxycodone HCl (Oxycodone Hcl Er 10 Mg Tab.Er.12h) 10 mg PO BID [facility] Propranolol HCl (Propranolol Hcl 20 Mg Tablet) 20 mg PO TID [facility]; Protocol Last Admin: 04/27/22 14:22 Dose: 20 mg Sodium Chloride (0.9 % Sodium Chloride Flush 3 Ml Syringe) 3 ml IVFLUSH QSNYFT [facility] Last Admin: 04/27/22 13:57 Dose: Not Given Spironolactone (Spironolactone 25 Mg Tablet) 50 mg PO DAILY [facility] Vitamin D (Cholecalciferol (Vitamin D3) 25 Mcg Tablet) 25 mcg PO DAILY [facility] Zolpidem Tartrate (Zolpidem Tartrate 5 Mg Tablet) 10 mg PO BEDTIME PRN PRN Reason: Insomnia Home Medications Medication Instructions Recorded Confirmed Last Taken Type amiloride 5 mg tablet 10 mg PO DAILY 03/05/20 04/19/22 04/26/22 History hydrochlorothiazide 50 mg tablet 50 mg PO DAILY 03/05/20 04/19/22 04/26/22 History lithium carbonate 300 mg capsule 300 mg PO BEDTIME 03/05/20 04/19/22 04/26/22 History lithium carbonate 600 mg capsule 600 mg PO BEDTIME 03/05/20 04/20/22 04/26/22 History olanzapine 10 mg disintegrating 10 mg PO BEDTIME 03/05/20 04/19/22 04/26/22 History tablet propranolol 20 mg tablet 20 mg PO TID 03/05/20 04/19/22 04/26/22 History zolpidem 10 mg tablet 10 mg PO BEDTIME PRN Insomnia 03/05/20 04/19/22 04/26/22 History hydroxyzine HCl 25 mg tablet 25 mg PO DAILY 11/24/20 04/27/22 04/26/22 History buspirone 5 mg tablet 5 mg PO BID 01/06/22 04/19/22 04/26/22 History diazepam 10 mg tablet 10 mg PO BID 03/29/22 04/19/22 04/26/22 History olanzapine 20 mg disintegrating 20 mg PO BEDTIME 04/20/22 04/20/22 04/26/22 History tablet Physical Exam Vital Signs and Narrative: Vital Signs: Last Vital Signs Temp 97 F 04/27/22 14:15 Pulse 82 04/27/22 14:30 Resp 16 04/27/22 14:15 BP 130/70 04/27/22 14:30 Pulse Ox 99 04/27/22 14:30 O2 Del Method 04/27/22 14:15 O2 Flow Rate 2 04/27/22 11:34 BMI result Body Mass Index 29.5 General: AO X 3, no acute distress Resp: CTA bilateral, no accessory muscles used CVS: S1,S2,RRR GI: soft, non tender, non distended Neuro: motor grossly intact, alert Psych: appropriate affect, appropriate insight Results Labs 04/27/22 06:24 Labs: Laboratory Results - last 24 hr 04/27/22 06:15 COVID-19 ([facility]) Negative COVID-19 Clin Com See Note Assessment and Plan (1) HTN (hypertension): Qualifiers: Hypertension type: essential hypertension Qualified Code(s): I10 - Essential (primary) hypertension Status: Acute Plan 52M pmh DI, bipolar admitted for elective right josefa right josefa management per primary team lithium induced DI continue amiloride, hctz, monitor bmp biplar lithium ,zyprexa, diazepam, atarax, buspar Time Spent With Patient Time: Total time managing care of this patient today ____ minutes.
[2022-04-27 15:45] LABS: Hematocrit 38.9 % (42.0-52.0); Hemoglobin 13.3 g/dl (14.0-18.0); Mean Corpuscular HGB Conc 34.2 g/dl (31.0-36.0); Mean Corpuscular Hemoglobin 31.7 pg (27.0-33.0); Mean Corpuscular Volume 92.8 fL (80.0-98.0); Mean Platelet Volume 11.3 fL (9.4-12.4); Platelet Count 239 X10*3/uL (160-400); Red Blood Count 4.19 X10*6/uL (4.60-5.80); Red Cell Distribution Width 13.2 % (11.0-16.0); White Blood Count 14.5 X10*3/uL (4.8-10.8)
[2022-04-27 15:59] LABS: Anion Gap 11 (12-20); Blood Urea Nitrogen 10 mg/dL (9-16); Calcium 9.7 mg/dL (8.4-10.2); Carbon Dioxide 24 mmol/L (22-29); Chloride 107 mmol/L (96-108); Creatinine Clr Calc Pharmacy 86.4; Estimated Glomerular Filt Rate > 60; Glucose Random 163 mg/dL (60-115); Potassium 4.1 mmol/L (3.3-5.1); Sodium 138 mmol/L (135-145)
[2022-04-27] MEDS: oxyCODONE HCl Immed Release 5 MG TABLET PO ×2 (16:19→20:36)
[2022-04-27] MEDS: diazePAM 5 MG TABLET 10 MG PO ×2 (16:20→19:29)
[2022-04-27] MEDS: Lithium Carbonate 300 MG CAPSULE 600 MG PO (19:27)
[2022-04-27] MEDS: HYDROmorphone HCl 0.5 MG/0.5 ML SYRINGE 0.25 MG IVPUSH ×2 (19:27→23:48)
[2022-04-27] MEDS: OLANZapine ODT 10 MG TAB.RAPDIS TRANSLINGU (19:28)
[2022-04-27] MEDS: Docusate Sodium 100 MG CAPSULE PO (19:28)
[2022-04-27] MEDS: Lithium Carbonate 300 MG CAPSULE PO (19:28)
[2022-04-27] MEDS: OLANZapine ODT 10 MG TAB.RAPDIS 20 MG TRANSLINGU (19:28)
[2022-04-27] MEDS: busPIRone HCl 5 MG TABLET PO (19:29)
[2022-04-27] MEDS: Celecoxib 200 MG CAPSULE PO (19:29)
[2022-04-27] MEDS: Acetaminophen 325 MG TABLET 650 MG PO (19:29)
[2022-04-27] MEDS: 0.9 % Sodium Chloride Flush 3 ML SYRINGE IVFLUSH (19:30)
[2022-04-27] MEDS: Zolpidem Tartrate 5 MG TABLET 10 MG PO (19:34)
[2022-04-28 03:51] VITALS: BP 113/59; PULSE 82; RESP 18; TEMP 36.8; O2SAT 95
[2022-04-28] MEDS: HYDROmorphone HCl 0.5 MG/0.5 ML SYRINGE 0.25 MG IVPUSH (04:30)
[2022-04-28] MEDS: Lactated Ringers 1,000 ML 100 ML IVCONT (04:34)
[2022-04-28] MEDS: Omeprazole 20 MG CAPSULE.DR PO (06:01)
[2022-04-28] MEDS: oxyCODONE HCl Immed Release 5 MG TABLET PO (06:01)
[2022-04-28 06:32] LABS: MANUAL DIFF FLAG NO
[2022-04-28 06:38] LABS: Basophils Percent Auto 0.1 % (0-2); Eosinophils Absolute Auto 0.1 X10*3/uL (0.0-0.4); Eosinophils Percent Auto 0.5 % (0-4); Hematocrit 35.8 % (42.0-52.0); Imm Gran Abs Auto 0.03 X10*3/uL (0.00-0.03); Imm Gran Pct Auto 0.3 % (0.0-0.4); Lymphocytes Absolute Auto 1.9 X10*3/uL (1.2-4.9); Lymphocytes Percent Auto 19.4 % (20-40); Mean Corpuscular HGB Conc 33.5 g/dl (31.0-36.0); Mean Corpuscular Hemoglobin 31.4 pg (27.0-33.0); Mean Corpuscular Volume 93.7 fL (80.0-98.0); Mean Platelet Volume 10.3 fL (9.4-12.4); Monocytes Absolute Auto 0.7 X10*3/uL (0.1-1.2); Monocytes Percent Auto 7.2 % (2-11); Neutrophils Percent Auto 72.5 % (45-73); Platelet Count 235 X10*3/uL (160-400); Red Blood Count 3.82 X10*6/uL (4.60-5.80); Red Cell Distribution Width 13.4 % (11.0-16.0); White Blood Count 9.7 X10*3/uL (4.8-10.8)
[2022-04-28 06:59] VITALS: BP 118/66; PULSE 79; RESP 18; TEMP 36.1; O2SAT 97
[2022-04-28 07:02] LABS: Anion Gap 11 (12-20); Blood Urea Nitrogen 11 mg/dL (9-16); Calcium 9.3 mg/dL (8.4-10.2); Carbon Dioxide 26 mmol/L (22-29); Chloride 107 mmol/L (96-108); Creatinine Clr Calc Pharmacy 92.3; Estimated Glomerular Filt Rate > 60; Glucose Fasting 128 mg/dL (60-99); Potassium 3.4 mmol/L (3.3-5.1); Sodium 141 mmol/L (135-145)
[2022-04-28] MEDS: diazePAM 5 MG TABLET 10 MG PO (07:22)
[2022-04-28] MEDS: Propranolol HCL 20 MG TABLET PO (07:22)
[2022-04-28] MEDS: Spironolactone 25 MG TABLET 50 MG PO (07:23)
[2022-04-28] MEDS: hydroCHLOROthiazide 50 MG TABLET PO (07:23)
[2022-04-28] MEDS: Aspirin 325 MG TABLET PO (07:23)
[2022-04-28] MEDS: Docusate Sodium 100 MG CAPSULE PO (07:24)
[2022-04-28] MEDS: oxyCODONE HCl ER 10 MG TAB.ER.12H PO (07:24)
[2022-04-28] MEDS: hydrOXYzine HCL 25 MG TABLET PO (07:24)
[2022-04-28] MEDS: busPIRone HCl 5 MG TABLET PO (07:24)
[2022-04-28] MEDS: Celecoxib 200 MG CAPSULE PO (07:24)
[2022-04-28] MEDS: Cholecalciferol (Vitamin D3) 25 MCG TABLET PO (07:27)
[2022-04-28 08:00] VITALS: BP 118/66; PULSE 79; O2SAT 97
--- NOTE | 2022-04-28 08:09 | P.DS_ITS ---
DS: Providers Provider Date of Service: 04/28/22 Date of admission: 04/27/22 06:11 Primary care physician: Basim Pruett PA-C Consults: 04/27/22 13:46 Consult to Hospitalist Routine Consulting Provider: Hospitalist Reason For Exam: Donahue induced DI, electrolytes stable DS: Diagnosis Discharge Diagnosis (1) HTN (hypertension): Status: Acute DS: Summary Hospital Course Hospital Course: The patient underwent a successful right total hip arthroplasty, they were transferred to PACU and then to the floor to recover. During their stay, their vitals were stable, afebrile at 97. Labs were unremarkable, H/H 12.0/35.8. POD 1 they were started on Aspirin 325mg po bid for DVT ppx, they also received Physical Therapy services twice a day. Prior to discharge, their dressing was changed, incision clean dry and intact, new Aquacel dressing applied and the plan was to be discharged home with VNA services. Time Spent with Patient Time attestation: Total time managing care of this patient today ____ minutes. Discharge coordination time: Less than 30 minutes Quality: Safe Use of Opioids Does Pt have an Active Cancer Diagnosis on the Problem List?: No Quality: Stroke Does the patient have a stroke diagnosis?: No Physical Exam Vital Signs: Vital Signs: Last Vital Signs Temp 97 F 04/28/22 06:59 Pulse 79 04/28/22 08:00 Resp 18 04/28/22 06:59 BP 118/66 04/28/22 08:00 Pulse Ox 97 04/28/22 08:00 O2 Del Method 04/28/22 06:59 O2 Flow Rate 2 04/27/22 11:34 BMI result Body Mass Index 29.5 Const: General: cooperative, healthy appearing and no acute distress Resp: Effort & Inspection: normal respiratory effort and able to speak in complete sentences Cardio: Rate: regular rate Peripheral pulses: Peripheral pulses 2+ throughout GI: Palpation (GI): Soft to palpation Skin: Lesions: no lesions Rashes: no rashes Extrem: Other: Right hip Aquacel is c/d/i. Able to dorsiflex and plantarflex. NVI. DS: Data Data Completed and Pending Pending studies at discharge: Pending at discharge 04/27/22 09:24 Surgical [PTH] Routine Labs on day of discharge: Laboratory Results - last 24 hr 04/27/22 04/27/22 04/28/22 15:19 15:19 05:33 WBC 14.5 H 9.7 RBC 4.19 L 3.82 L Hgb 13.3 L 12.0 L Hct 38.9 L 35.8 L MCV 92.8 93.7 MCH 31.7 31.4 MCHC 34.2 33.5 RDW 13.2 13.4 Plt Count 239 235 MPV 11.3 10.3 Immature Gran % (Auto) 0.3 Neut % (Auto) 72.5 Lymph % (Auto) 19.4 L [place] % (Auto) 7.2 Eos % (Auto) 0.5 Baso % (Auto) 0.1 Lymph # (Auto) 1.9 [place] # (Auto) 0.7 Eos # (Auto) 0.1 Baso # (Auto) 0.0 Abs Immat Gran (auto) 0.03 Absolute Neuts (auto) 7.0 Absolute Nucleated RBC 0.000 0.000 Nucleated RBC % (auto) 0.0 0.0 Sodium 138 Potassium 4.1 Chloride 107 Carbon Dioxide 24 Anion Gap 11 L BUN 10 Creatinine 1.09 Estim Creat Clear Calc 86.4 Estimated GFR > 60 Random Glucose 163 H Fasting Glucose Calcium 9.7 04/28/22 05:33 WBC RBC Hgb Hct MCV MCH MCHC RDW Plt Count MPV Immature Gran % (Auto) Neut % (Auto) Lymph % (Auto) [place] % (Auto) Eos % (Auto) Baso % (Auto) Lymph # (Auto) [place] # (Auto) Eos # (Auto) Baso # (Auto) Abs Immat Gran (auto) Absolute Neuts (auto) Absolute Nucleated RBC Nucleated RBC % (auto) Sodium 141 Potassium 3.4 Chloride 107 Carbon Dioxide 26 Anion Gap 11 L BUN 11 Creatinine 1.02 Estim Creat Clear Calc 92.3 Estimated GFR > 60 Random Glucose Fasting Glucose 128 H Calcium 9.3 Discharge Plan Discharge Anticipated Discharge Date/Time: 04/28/22 13:00 Patient Disposition: Home Health Service Discharge Diagnosis: rt josefa Referrals: Basim Pruett PA-C [Primary Care Provider] - 1 Week Becki Corona PA-C [Physician Saddle Stitching Machine Operator] - 2 Weeks (05/12/22 1:00 [facility] Becki Corona PA-C) Discharge Medications: New acetaminophen 325 mg Tablet 650 mg PO Q6H PRN (Reason: Pain, Mild (Pain Scale 1-3)) 30 Days Qty: 240 0RF aspirin 325 mg Tablet 325 mg PO BID 42 Days Qty: 84 0RF celecoxib 200 mg Capsule 200 mg PO BID 30 Days Qty: 60 0RF docusate sodium 100 mg Capsule 100 mg PO BID 30 Days Qty: 60 0RF oxycodone 5 mg Tablet 5 mg PO Q4H PRN (Reason: Pain, Moderate (Pain Scale 4-6) 7 Days Qty: 42 0RF Rx Instructions: Partial Fill upon patient request. Continued (DME) walker [facility] See Rx Instructions .ROUTE .MEDSUPPLY Qty: 1 0RF Rx Instructions: Folding front wheeled walker (DME) Raised toliet seat See Rx Instructions .ROUTE .MEDSUPPLY Qty: 1 0RF Rx Instructions: As directed olanzapine 20 mg tablet,disintegrating 20 mg PO BEDTIME zolpidem 10 mg tablet 10 mg PO BEDTIME PRN (Reason: Insomnia) olanzapine 10 mg tablet,disintegrating 10 mg PO BEDTIME lithium carbonate 300 mg capsule 300 mg PO BEDTIME lithium carbonate 600 mg capsule 600 mg PO BEDTIME propranolol 20 mg tablet 20 mg PO TID amiloride 5 mg tablet 10 mg PO DAILY hydrochlorothiazide 50 mg tablet 50 mg PO DAILY hydroxyzine HCl 25 mg tablet 25 mg PO DAILY buspirone 5 mg tablet 5 mg PO BID pantoprazole 40 mg tablet,delayed release (DR/EC) 40 mg PO DAILY Qty: 90 1RF cholecalciferol (vitamin D3) [Vitamin D3] 25 mcg (1,000 unit) capsule 25 mcg PO DAILY Qty: 90 2RF diazepam 10 mg tablet 10 mg PO BID Discharge Orders: Discharge Order (Routine); Ordered 04/28/22 Ordered By: Becki Corona Diet: Regular diet Activity on Discharge: Use cane or walker Stand Alone Forms: Patient Portal Discharge page Care Plan Goals: Restore function of joint Health Concerns: none Plan of Treatment: Physical Therapy Pain management DVT prophylaxis Assessment: * Physical Therapy for Total hip arthroplasty: wbat, posterior precautions, gait training, ROM, strength * Limit stair climbing * No showering, no tub bath-keep dressing clean, dry and intact * No driving x6 weeks * Continue Aspirin twice a day x 6 weeks * Follow up with [facility] [place] [facility] in 2 weeks: * -05/12/22 1:00[facility] [place] [facility]opedic SurgeonsBecki Corona, YAN
--- NOTE | 2022-04-28 08:10 | W.MHC.F2F ---
Service Date Service Date: 04/28/22 Encounter Date of encounter: 04/28/22 Reasons for Services Signs and symptoms assessed: s/p RTHA. Pt. is considered homebound due to recent surgery. Unable to drive, poor balance, poor gait mechanics. Reason for physical therapy: home safety and mobility, therapeutic exercises, restore joint function, gait/transfer training, assess need for DME and ADL training Reason for occupational therapy: home safety and mobility, therapeutic exercises, restore joint function, gait/transfer training, assess need for DME and ADL training Homebound: Leaving the home is medically contraindicated at this time without the asist of a device and/or another person due th the listed conditions above and below. Reason homebound: unsteady gait / fall risk, leg weakness, pain with ambulation, pain with transfers, poor balance / fall risk and unable to drive Homebound supporting statement: Pt. is considered homebound due to recent surgery. Unable to drive, poor balance, poor gait mechanics. Certification: Based on the above findings, I certify that this patient is confined to the home and needs intermittent long-term care, physical therapy and/or speech therapy, or continues to need occupational therapy. The patient is under my care, and I have initiated the establishment of the plan of care. The patient will be followed by a physician who will periodically review the plan of care. Time Spent With Patient Time: Total time managing care of this patient today ____ minutes.
--- NOTE | 2022-04-28 09:09 | P.PNIM_ITS ---
Subjective Subjective Date of Service: 04/28/22 Interval History: elective right josefa Physical Exam Vital Signs: Vital Signs: Last Vital Signs Temp 97 F 04/28/22 06:59 Pulse 79 04/28/22 08:00 Resp 18 04/28/22 06:59 BP 118/66 04/28/22 08:00 Pulse Ox 97 04/28/22 08:00 O2 Del Method 04/28/22 06:59 O2 Flow Rate 2 04/27/22 11:34 BMI result Body Mass Index 29.5 General: AO X 3, no acute distress Resp: CTA bilateral, no accessory muscles used CVS: S1,S2,RRR GI: soft, non tender, non distended Neuro: motor grossly intact, alert Psych: appropriate affect, appropriate insight Objective Data Active Medications Acetaminophen (Acetaminophen 325 Mg Tablet) 650 mg PO Q6H PRN PRN Reason: Pain, Mild (Pain Scale 1-3) Last Admin: 04/27/22 19:29 Dose: 650 mg Documented By: NAVARRO Aspirin (Aspirin 325 Mg Tablet) 325 mg PO BID [facility] Last Admin: 04/28/22 07:23 Dose: 325 mg Documented By: LLOYD Buspirone HCl (Buspirone Hcl 5 Mg Tablet) 5 mg PO BID [facility] Last Admin: 04/28/22 07:24 Dose: 5 mg Documented By: LLOYD Celecoxib (Celecoxib 200 Mg Capsule) 200 mg PO BID [facility] Last Admin: 04/28/22 07:24 Dose: 200 mg Documented By: LLOYD Diazepam (Diazepam 5 Mg Tablet) 10 mg PO BID [facility] Last Admin: 04/28/22 07:22 Dose: 10 mg Documented By: LLOYD Docusate Sodium (Docusate Sodium 100 Mg Capsule) 100 mg PO BID [facility] Last Admin: 04/28/22 07:24 Dose: 100 mg Documented By: LLOYD Fentanyl (Fentanyl Citrate/Pf 100 Mcg/2 Ml Vial) 25 mcg IVPUSH Q5M PRN; Protocol PRN Reason: Pain, Moderate (Pain Scale 4-6 Hydrochlorothiazide (Hydrochlorothiazide 50 Mg Tablet) 50 mg PO DAILY [facility]; Protocol Last Admin: 04/28/22 07:23 Dose: 50 mg Documented By: LLOYD Hydromorphone HCl (Hydromorphone Hcl 0.5 Mg/0.5 Ml Syringe) 0.25 mg IVPUSH Q5M PRN; Protocol PRN Reason: Pain, Severe (Pain Scale 7-10) Hydromorphone HCl (Hydromorphone Hcl 0.5 Mg/0.5 Ml Syringe) 0.25 mg IVPUSH Q4H PRN; Protocol PRN Reason: Pain, Severe (Pain Scale 7-10) Last Admin: 04/28/22 04:30 Dose: 0.25 mg Documented By: NAVARRO Hydroxyzine HCl (Hydroxyzine Hcl 25 Mg Tablet) 25 mg PO DAILY [facility] Last Admin: 04/28/22 07:24 Dose: 25 mg Documented By: LLOYD Lactated Ringer's (Lr) 1,000 mls @ 100 mls/hr IVCONT .Q10H [facility] Last Admin: 04/28/22 04:34 Dose: 100 mls/hr Documented By: NAVARRO [place] Carbonate ([place] Carbonate 300 Mg Capsule) 300 mg PO BEDTIME [facility] Last Admin: 04/27/22 19:28 Dose: 300 mg Documented By: NAVARRO [place] Carbonate ([place] Carbonate 300 Mg Capsule) 600 mg PO BEDTIME [facility] Last Admin: 04/27/22 19:27 Dose: 600 mg Documented By: NAVARRO Olanzapine (Olanzapine Odt 10 Mg Tab.Rapdis) 10 mg TRANSLINGU BEDTIME [facility] Last Admin: 04/27/22 19:28 Dose: 10 mg Documented By: NAVARRO Olanzapine (Olanzapine Odt 10 Mg Tab.Rapdis) 20 mg TRANSLINGU BEDTIME [facility] Last Admin: 04/27/22 19:28 Dose: 20 mg Documented By: NAVARRO Omeprazole (Omeprazole 20 Mg Capsule.Dr) 20 mg PO DAILY@0630 [facility] Last Admin: 04/28/22 06:01 Dose: 20 mg Documented By: NAVARRO Ondansetron HCl (Ondansetron Hcl 4 Mg/2 Ml Vial) 4 mg IVPUSH Q8H PRN PRN Reason: Nausea and Vomiting Oxycodone HCl (Oxycodone Hcl Immed Release 5 Mg Tablet) 5 mg PO Q4H PRN PRN Reason: Pain, Moderate (Pain Scale 4-6 Last Admin: 04/28/22 06:01 Dose: 5 mg Documented By: NAVARRO Oxycodone HCl (Oxycodone Hcl Er 10 Mg Tab.Er.12h) 10 mg PO BID [facility] Last Admin: 04/28/22 07:24 Dose: 10 mg Documented By: LLOYD Propranolol HCl (Propranolol Hcl 20 Mg Tablet) 20 mg PO TID [facility]; Protocol Last Admin: 04/28/22 07:22 Dose: 20 mg Documented By: LLOYD Sodium Chloride (0.9 % Sodium Chloride Flush 3 Ml Syringe) 3 ml IVFLUSH QSHIFT [facility] Last Admin: 04/28/22 06:28 Dose: Not Given Documented By: GERALDINE Non-Admin Reason: IV Running Spironolactone (Spironolactone 25 Mg Tablet) 50 mg PO DAILY [facility] Last Admin: 04/28/22 07:23 Dose: 50 mg Documented By: LLOYD Vitamin D (Cholecalciferol (Vitamin D3) 25 Mcg Tablet) 25 mcg PO DAILY [facility] Last Admin: 04/28/22 07:27 Dose: 25 mcg Documented By: LLOYD Zolpidem Tartrate (Zolpidem Tartrate 5 Mg Tablet) 10 mg PO BEDTIME PRN PRN Reason: Insomnia Last Admin: 04/27/22 19:34 Dose: 10 mg Documented By: NAVARRO Labs 04/28/22 05:33 04/28/22 05:33 Labs: Laboratory Results - last 24 hr 04/27/22 04/27/22 04/28/22 15:19 15:19 05:33 MCV 92.8 93.7 MCH 31.7 31.4 MCHC 34.2 33.5 RDW 13.2 13.4 Plt Count 239 235 MPV 11.3 10.3 Immature Gran % (Auto) 0.3 Neut % (Auto) 72.5 Lymph % (Auto) 19.4 L [place] % (Auto) 7.2 Eos % (Auto) 0.5 Baso % (Auto) 0.1 Lymph # (Auto) 1.9 [place] # (Auto) 0.7 Eos # (Auto) 0.1 Baso # (Auto) 0.0 Abs Immat Gran (auto) 0.03 Absolute Neuts (auto) 7.0 Absolute Nucleated RBC 0.000 0.000 Nucleated RBC % (auto) 0.0 0.0 Anion Gap 11 L Estim Creat Clear Calc 86.4 Estimated GFR > 60 Random Glucose 163 H Fasting Glucose Calcium 9.7 04/28/22 05:33 MCV MCH MCHC RDW Plt Count MPV Immature Gran % (Auto) Neut % (Auto) Lymph % (Auto) [place] % (Auto) Eos % (Auto) Baso % (Auto) Lymph # (Auto) [place] # (Auto) Eos # (Auto) Baso # (Auto) Abs Immat Gran (auto) Absolute Neuts (auto) Absolute Nucleated RBC Nucleated RBC % (auto) Anion Gap 11 L Estim Creat Clear Calc 92.3 Estimated GFR > 60 Random Glucose Fasting Glucose 128 H Calcium 9.3 Assessment and Plan (1) HTN (hypertension): Status: Acute Plan 52M pmh DI, bipolar admitted for elective right josefa right josefa management per primary team lithium induced DI continue amiloride, hctz, sodium wnl biplar lithium ,zyprexa, diazepam, atarax, buspar will sign off, please recall if needed Time Spent With Patient Time: Total time managing care of this patient today ____ minutes. Quality Stroke Does the patient have a stroke diagnosis?: No VTE Prior VTE?: No VTE Risk Level:: Medical - moderate - high VTE Device Contraindication: Treatment Not Indicated VTE Drug Contraindication: N/A - Med Ordered
--- NOTE | 2022-04-28 10:48 | MHC.CM.PN ---
POST D/C NOTE: CM ATTEMPTED TO MEET W/PT FOR CM ASSESSMENT AND IMM DELIVERY HOWEVER PT HAS ALREADY D/C'D, PER PT PT WAS DOING VERY WELL AND WALKED WITHOUT EVEN USING A CANE WHICH HE DOES HAVE AT HOME. PT DISCHARGED W/[facility] FOR HOME PT AND PT'S FATHER TRANSPORTED PT HOME
--- NOTE | 2022-04-28 15:34 | HO.POSTANES ---
Post Anesthesia Evaluation Post Anesthesia Evaluation Vital Signs: Vital Signs Temp Pulse Resp BP Pulse Ox O2 Del Method 04/28/22 10:07 Room Air 04/28/22 08:00 79 118/66 97 04/28/22 06:59 97 F 79 18 118/66 97 Room Air 04/28/22 03:51 98.2 F 82 18 113/59 L 95 Room Air Anesthesia: General Mental Status: Awake Pain Control: Satisfactory Nausea/Vomiting: None Hydration: Adequate Anesthesia-Related Issues: No Anes. Related Issues
== END 2022-04-28 10:31 | disposition home health service (06) | DRG 470 ==
LOC: HO.SSSA 06:15 → HO.S3 12:52
PROVIDERS: Internal Medicine; Physician Assistant; Admitting Provider Orthopaedic Surgery; PCP Physician Assistant; Visit Provider Orthopaedic Surgery
PROC: 0SR903A Replacement of Right Hip Joint with Ceramic Synthetic Substitute, Uncemented, Open Approach (ICD-10-PCS; CPT 27130; principal; 2022-04-27 07:30)
DX: M16.11 Unilateral primary osteoarthritis, right hip (principal); E23.2 Diabetes insipidus; T43.595S Adverse effect of other antipsychotics and neuroleptics, sequela; I10 Essential (primary) hypertension; F31.9 Bipolar disorder, unspecified; F17.210 Nicotine dependence, cigarettes, uncomplicated; K21.9 Gastro-esophageal reflux disease without esophagitis; Z71.6 Tobacco abuse counseling; Z79.82 Long term (current) use of aspirin; Z79.899 Other long term (current) drug therapy
CPT/HCPCS: 36415; 72170; 80048; 85014; 85018; 85025; 85027; 86850; 86900; 86901; 87635; 87640; 87641; 88304; 88311; 97110; 97116; 97162; 97165; 97530; C1776; J0131; J0690; J1100; J1170; J2250; J2405; J2795; J3010

== ENCOUNTER → 2022-05-12 12:47 | Outpatient (BNVA) | payer OTHER, SELFPAY | PROVIDERS: PCP Physician Assistant; Visit Provider Physician Assistant | DX: Z13.89 Encounter for screening for other disorder (principal) ==

== ENCOUNTER → 2022-06-09 14:07 | Outpatient (BNVA) | payer OTHER, SELFPAY | PROVIDERS: PCP Physician Assistant; Visit Provider Physician Assistant ==

== ENCOUNTER 2022-06-16 12:00 | Outpatient (RCR) | payer OTHER, SELFPAY ==
--- NOTE | 2022-05-12 13:57 | MHC.PT.EP ---
[facility] [place] [facility] [place] Office [place] [facility] [address] Valentino Callahan [address] [phone] F: [phone] F: [phone] F: [phone] F: [phone] Physical Therapy Plan of Care Date of Evaluation: Date of Surgery: 04/27/22 Diagnosis: S/P Rt NAKUL Assessment: 52 YO MALE REF TO PT S/P RIGHT NAKUL ON 04/27/22. HE RESIDES W HIS MOTHER IN A 2 LEVEL HOME AND IS CURRENTLY AMB W/O ASST DEVICES. OBJECTIVE FINDINGS: PO ROM DEFICITS RIGHT HIP, TIGHT HIP FLEXORS/ CALF MM, (+) MILD STRENGTH DEFICITS Rt LE/ CORE , AND RIGHT PROX LE PAIN. FUNCTIONALLY, Pt IS CURRENTLY LIMITED W PROLONGED STANDING, ALTERED GAIT MECHANICS, STAIR MGMT , AND RESTRICTED WITH MORE PHYSICALLY DEMANDING ADLs. Pt IS VERY MOTIVATED TO REGAIN HIS FUNCTIONAL INDEPENDENCE AND HE WOULD BENEFIT FROM PT AT THIS TIME TO GUIDE HIM IN HIS POST-OP COURSE, DEV A PROGR HEP, ADDRESS PAIN MGMT, AND OBTAINING MAXIMAL LEVEL OF FUNCTIONAL INDEPENDENCE. Frequency and Duration: The patient will be seen 2 x WK x 8 WKS Short Term Goals: *Pt INDEP W NAKUL POSTERIOR APPROACH PRECAUTIONS AND SELF-MGMT OF POST-OP STATUS TO PROMOTE OPTIMAL HEALING *Pt'S RIGHT HIP PAIN WILL DECR TO 2-310 *Pt DEMON APPROP BED MOB/ POSITIONING/ SIT <-> STAND/ CAR TRANSFERS *INCR FLEXIB IN PSOAS/ CALF MM TO IMPROVE EFFICIENCY OF GAIT ON LEVEL GROUND AND STAIRS * MONITOR/ ADDRESS Rt LATERAL HIP SCAR MOB NEEDED Skin Pass Operator Goals: *Pt INDEP W PROGR HEP AND SELF-SX MGMT TECHN Pt RESUME REG ADLs EVIDENT W IMPROVED LEFI SCORE BY 8-10 POINTS (AT EVAL ) IN 8 WKS Pt WILL IMPROVE LUMBOPELVIC/ Rt LE STRENGTH TO AT LEAST 5-/5 Treatment Plan: Modalities to reduce pain, spasms and effusion. Manual therapy to restore motion and function. Therapeutic exercise to improve strength and flexibility. Neuromuscular re-education for posture and balance. Therapeutic activities to return to functional activities of daily living. Electronically signed by: LEA NAJERA,PT Please sign and return to therapist. Thank you for your referral.
--- NOTE | 2022-07-27 13:50 | MHC.PT.DC ---
[facility] [place] Office [place] Office [place] Office [address] Valentino Callahan [address] [phone] F: [phone] F: [phone] F: [phone] F: [phone] Physical Therapy Discharge Report Diagnosis: S/P Rt NAKUL Date of Surgery: 04/27/22 Date of Evaluation: 05/12/22 Date of Discharge: 07/27/22 Treatments to Date: 8 Cancellations to Date: 2 No Shows to Date: 0 Discharge Status: Improved Function Independent with HEP Patient Elected to Stop Discharge Summary: Pt PROGRESSED WELL IN PT POST Rt NAKUL- HE DISPLAYED IMPROVED FUNCTIONAL MOBILITY/ ACTIVITY ALISA AND HAS A THOROUGH HEP. THE Pt DISCHARGED HIMSELF FROM PT AT THIS TIME- Electronically signed by: LEA NAJERA,PT Please sign and return to therapist. Thank you for your referral.
== END 2022-07-27 13:53 | disposition home or self-care (01) ==
LOC: HO.PT 12:00
PROVIDERS: Visit Provider Physician Assistant
DX: Z96.641 Presence of right artificial hip joint (principal)
CPT/HCPCS: 97110; 97161; 97530

== ENCOUNTER 2022-06-21 06:19 | Outpatient (REF) | payer OTHER, SELFPAY ==
--- NOTE | ~2022-06-21 | FL_ITS ---
EXAMINATION: XR FLUOROSCOPY WITH IMAGES CLINICAL INFORMATION: M25.551 - Pain in left hip COMPARISON: Pelvis and hips radiographs 01/26/2022. TECHNIQUE: Fluoroscopy Supervised By: Dr. Solomon Sutton. Fluoroscopy Time: 0.2 minutes. Cumulative Dose: 9.90 mGy. DAP: 0.70 Gycm2. Images: 2. FINDINGS: There is a spinal needle with tip at the superior lateral hip joint. There is contrast in the joint capsule. No visible vascular communication. FL/FL guidance in treatment room IMPRESSION: Fluoroscopy for pain management procedure.
== END 2022-06-21 06:20 | disposition home or self-care (01) ==
LOC: CF 06:19
PROVIDERS: Visit Provider Anesthesiology
DX: M16.0 Bilateral primary osteoarthritis of hip (principal)
CPT/HCPCS: 20610; J3301

== ENCOUNTER 2022-07-05 13:51 | Outpatient (REF) | payer OTHER, SELFPAY ==
[2022-07-05 14:52] LABS: Calcium 9.8 mg/dL (8.4-10.2)
[2022-07-05 16:04] LABS: Creatinine Urine 61.92 mg/dL; Microalbum/Creatinine Ratio Ur 24.2 ug/mg cr
== END 2022-07-05 13:52 | disposition home or self-care (01) ==
LOC: HO.LAB 13:51
PROVIDERS: PCP Physician Assistant; Visit Provider Physician Assistant
DX: I10 Essential (primary) hypertension (principal); N25.1 Nephrogenic diabetes insipidus
CPT/HCPCS: 36415; 82043; 82310

== ENCOUNTER 2022-07-18 08:30 | Outpatient (REF) | payer OTHER, SELFPAY ==
--- NOTE | ~2022-07-18 | XR_ITS ---
EXAMINATION: XR PELVIS AP XR HIP, RIGHT XR SHOULDER, RIGHT XR SHOULDER, LEFT CLINICAL INDICATION: Pain. COMPARISON: Pelvis 04/27/2022 and bilateral hips 01/26/2022. FINDINGS: AP PELVIS AND RIGHT HIP: There is a total right hip prosthesis in alignment. There is no prosthetic loosening or periprosthetic fracture. The left hip joint space is maintained normal. There is mild lateral periarticular spurring left hip joint. Multiple calcifications are seen in bilateral lower pelvis. LEFT SHOULDER: There is unipolar prosthesis left shoulder with a short humeral stem. There is no periprosthetic loosening or fracture. There is periarticular spurring along the superior glenoid. No acute fracture or dislocation. The AC joint is normal. RIGHT SHOULDER: There is no visible acute fracture, dislocation or subluxation. The glenohumeral joint space is normal. Mild reduction of the right AC joint space is seen. The soft tissues are normal. XR/XR pelvis 1-2V IMPRESSION: 1. Total right hip prosthesis in alignment. No prosthetic loosening or periprosthetic fracture. Mild degenerative changes left hip joint. 2. Unipolar left shoulder prosthesis with a short humeral stem. There is periarticular spurring along the superior glenoid. No acute fracture or dislocation seen. 3. Unremarkable right shoulder exam.
--- NOTE | ~2022-07-18 | XR_ITS ---
EXAMINATION: XR PELVIS AP XR HIP, RIGHT XR SHOULDER, RIGHT XR SHOULDER, LEFT CLINICAL INDICATION: Pain. COMPARISON: Pelvis 04/27/2022 and bilateral hips 01/26/2022. FINDINGS: AP PELVIS AND RIGHT HIP: There is a total right hip prosthesis in alignment. There is no prosthetic loosening or periprosthetic fracture. The left hip joint space is maintained normal. There is mild lateral periarticular spurring left hip joint. Multiple calcifications are seen in bilateral lower pelvis. LEFT SHOULDER: There is unipolar prosthesis left shoulder with a short humeral stem. There is no periprosthetic loosening or fracture. There is periarticular spurring along the superior glenoid. No acute fracture or dislocation. The AC joint is normal. RIGHT SHOULDER: There is no visible acute fracture, dislocation or subluxation. The glenohumeral joint space is normal. Mild reduction of the right AC joint space is seen. The soft tissues are normal. XR/XR shoulder RT min 2V IMPRESSION: 1. Total right hip prosthesis in alignment. No prosthetic loosening or periprosthetic fracture. Mild degenerative changes left hip joint. 2. Unipolar left shoulder prosthesis with a short humeral stem. There is periarticular spurring along the superior glenoid. No acute fracture or dislocation seen. 3. Unremarkable right shoulder exam.
--- NOTE | ~2022-07-18 | XR_ITS ---
EXAMINATION: XR PELVIS AP XR HIP, RIGHT XR SHOULDER, RIGHT XR SHOULDER, LEFT CLINICAL INDICATION: Pain. COMPARISON: Pelvis 04/27/2022 and bilateral hips 01/26/2022. FINDINGS: AP PELVIS AND RIGHT HIP: There is a total right hip prosthesis in alignment. There is no prosthetic loosening or periprosthetic fracture. The left hip joint space is maintained normal. There is mild lateral periarticular spurring left hip joint. Multiple calcifications are seen in bilateral lower pelvis. LEFT SHOULDER: There is unipolar prosthesis left shoulder with a short humeral stem. There is no periprosthetic loosening or fracture. There is periarticular spurring along the superior glenoid. No acute fracture or dislocation. The AC joint is normal. RIGHT SHOULDER: There is no visible acute fracture, dislocation or subluxation. The glenohumeral joint space is normal. Mild reduction of the right AC joint space is seen. The soft tissues are normal. XR/XR hip RT 1V IMPRESSION: 1. Total right hip prosthesis in alignment. No prosthetic loosening or periprosthetic fracture. Mild degenerative changes left hip joint. 2. Unipolar left shoulder prosthesis with a short humeral stem. There is periarticular spurring along the superior glenoid. No acute fracture or dislocation seen. 3. Unremarkable right shoulder exam.
--- NOTE | ~2022-07-18 | XR_ITS ---
EXAMINATION: XR PELVIS AP XR HIP, RIGHT XR SHOULDER, RIGHT XR SHOULDER, LEFT CLINICAL INDICATION: Pain. COMPARISON: Pelvis 04/27/2022 and bilateral hips 01/26/2022. FINDINGS: AP PELVIS AND RIGHT HIP: There is a total right hip prosthesis in alignment. There is no prosthetic loosening or periprosthetic fracture. The left hip joint space is maintained normal. There is mild lateral periarticular spurring left hip joint. Multiple calcifications are seen in bilateral lower pelvis. LEFT SHOULDER: There is unipolar prosthesis left shoulder with a short humeral stem. There is no periprosthetic loosening or fracture. There is periarticular spurring along the superior glenoid. No acute fracture or dislocation. The AC joint is normal. RIGHT SHOULDER: There is no visible acute fracture, dislocation or subluxation. The glenohumeral joint space is normal. Mild reduction of the right AC joint space is seen. The soft tissues are normal. XR/XR shoulder LT min 2V IMPRESSION: 1. Total right hip prosthesis in alignment. No prosthetic loosening or periprosthetic fracture. Mild degenerative changes left hip joint. 2. Unipolar left shoulder prosthesis with a short humeral stem. There is periarticular spurring along the superior glenoid. No acute fracture or dislocation seen. 3. Unremarkable right shoulder exam.
== END 2022-07-18 08:31 | disposition home or self-care (01) ==
LOC: HO.HOSX 08:30
PROVIDERS: Visit Provider Orthopaedic Surgery
DX: M25.311 Other instability, right shoulder (principal); M25.312 Other instability, left shoulder; Z96.641 Presence of right artificial hip joint
CPT/HCPCS: 72170; 73030; 73501; 73502; 99212

== ENCOUNTER → 2022-07-25 13:33 | Outpatient (BNVA) | payer OTHER, MEDICAID, SELFPAY | PROVIDERS: PCP Physician Assistant; Visit Provider Orthopaedic Surgery | DX: M24.419 Recurrent dislocation, unspecified shoulder (principal) | CPT/HCPCS: 99212 ==

== ENCOUNTER → 2022-09-23 13:52 | Outpatient (BNVA) | payer OTHER, MEDICAID, SELFPAY | PROVIDERS: PCP Physician Assistant; Visit Provider Nurse Practitioner | DX: Z12.11 Encounter for screening for malignant neoplasm of colon (principal); K21.9 Gastro-esophageal reflux disease without esophagitis; N25.1 Nephrogenic diabetes insipidus; F17.210 Nicotine dependence, cigarettes, uncomplicated | CPT/HCPCS: 99202 ==

== ENCOUNTER 2022-10-17 13:21 | Outpatient (REF) | payer OTHER, MEDICAID, SELFPAY ==
[2022-10-17 14:27] LABS: Appearance Urine Clear; Color Urine Yellow; Glucose Urine UA Negative (Negative); Leukocyte Esterase Urine Negative (Negative); Nitrite Urine Negative (Negative); Specific Gravity - Urine <= 1.005 (1.005-1.025); Urine Blood Negative (Negative); Urine Ketones Negative (Negative); Urine Protein Negative (Neg-Trace)
[2022-10-17 14:29] LABS: Anion Gap 10 (12-20); Blood Urea Nitrogen 14 mg/dL (9-16); Calcium 10.8 mg/dL (8.4-10.2); Carbon Dioxide 30 mmol/L (22-29); Chloride 104 mmol/L (96-108); Estimated Glomerular Filt Rate > 60; Potassium 4.3 mmol/L (3.3-5.1); Sodium 140 mmol/L (135-145)
[2022-10-17 14:33] LABS: Anion Gap 9 (12-20); Blood Urea Nitrogen 14 mg/dL (9-16); Calcium 10.8 mg/dL (8.4-10.2); Carbon Dioxide 29 mmol/L (22-29); Chloride 105 mmol/L (96-108); Estimated Glomerular Filt Rate > 60; Glucose Random 98 mg/dL (60-115); Potassium 4.3 mmol/L (3.3-5.1); Sodium 139 mmol/L (135-145)
[2022-10-17 14:41] LABS: Thyroid Stimulating Hormone 0.98 uIU/mL (0.32-4.0)
== END 2022-10-17 13:22 | disposition home or self-care (01) ==
LOC: HO.LAB 13:21
PROVIDERS: Physician Assistant; Visit Provider Clinical Nurse Specialist Psychiatric/Mental Health, Adult
DX: R10.9 Unspecified abdominal pain (principal); Z79.899 Other long term (current) drug therapy
CPT/HCPCS: 36415; 80048; 80051; 81003; 82310; 82565; 84443; 84520

== ENCOUNTER 2022-11-07 09:53 | Outpatient (AMB) | payer OTHER, MEDICAID, SELFPAY ==
--- NOTE | 2022-11-07 10:02 | A.OFFPC_ITS ---
Vital Signs 11/07/22 10:03 Height 5 ft 8 in Weight 190 lb 4 oz BMI 28.9 BP 114/74 Blood Pressure Location Rt brachial Position Sitting Pulse 60 Pulse Source Pulse Oximeter Pulse Oximetry (%) 98 Oxygen Delivery Method Room Air Intake Visit Reasons: abdominal pain and kidney pain Allergies No Known Allergies Allergy (Verified 11/07/22 10:05) Tobacco use date assessed: 07/07/22 HPI HPI Comments History of Present Illness Details Bakari is a 52-year-old male here today for follow-up visit..? Patient has a past medical history significant for bipolar disorder, hypertension, hyperlipidemia, GERD, lithium induced diabetes insipidus. Patient of Rell Pruett last seen in june. Review of the notes patient was seen by Dr. Alonso orthopedic for Several years of chronic multi-directional instability bilateral shoulders, patient was referred to [facility] for further evaluation and treatment. Patient presents today with abdominal pain and kidney pain Patient states abdominal pain all over x6 months burning in nature, Patient reports hx constipation. LBM 1 day ago and reports it was normal. Patient denies diarrhea, blood in stool. no nausea vomiting or fevers, states CVA tenderness. Denies fevers or chills, urinary frequency,hesitancy and dysuria. No concerns for acute abdomen at this time. [facility] Medical History Bipolar 1 disorder COVID-19 vaccine series completed Depression Family history of malignant hyperthermia GERD (gastroesophageal reflux disease) HTN (hypertension) Nephrogenic diabetes insipidus Osteoarthritis Sinusitis Surgical History H/O knee surgery H/O shoulder surgery Hx of shoulder surgery S/P total right hip arthroplasty Family History Mother No problems noted. Father No problems noted. Other Mental health disorder Substance use disorder Social History Household Members Other:: mother Housing: House Are you a primary anesthesiologist and critical care to a significant other at home: No Do you presently have visiting nurse or other home services: No Alcohol intake: former Year quit: 18 m Patient Tobacco Use Status: Current everyday Tobacco user Tobacco use type: Cigarette Cigarettes Per Day: 6 Years Smoked: 13 e-Cigarette/Vaping Use: Never Used service: No Current occupational status: disabled Cognitive needs: No Hearing needs: No Vision needs: No Questionnaire PHQ-9 Over the last 2 weeks, how often have you been bothered by any of the following problems? 1. Little interest or pleasure in doing things: several days 2. Feeling down, depressed, or hopeless: not at all 3. Trouble falling or staying asleep, or sleeping too much: nearly every day 4. Feeling tired or having little energy: nearly every day 5. Poor appetite or overeating: not at all 6. Feeling bad about yourself - or that you are a failure or have let yourself or your family down: not at all 7. Trouble concentrating on things, such as reading the newspaper or watching television: not at all 8. Moving or speaking so slowly that other people could have noticed. Or the opposite - being so fidgety or restless that you have been moving around a lot more than usual: not at all 9. Thoughts that you would be better off or of hurting yourself in some way: not at all Total score: 7 Depression Screening Interpretation: Positive Depression Screening Follow-up: Existing condition and In treatment Source: Developed by Drs. Aaron Garcia, Perla Teresa, Henok Israel and colleagues, with an educational angela from [employer]. Thrive Questionnaire Date Thrive assessed: 03/31/22 I am a: Patient What is your living situation today?: I have a steady place to live Within the past 12 months, did the food you bought not last and you didn't have the money to get more?: Never true Within the past 12 months, did you worry whether your food would run out before you got money to buy more?: Never true Currently or been in a relationship where the following occur: no concerns r eported AUDIT C Alcohol Use Questionnaire (AUDIT-C) 1. How often do you have a drink containing alcohol?: Never 3. How often do you have six or more drinks on one occasion?: Never Total Score: 0 KANNAN-7 AMB Questionnaire KANNAN-7 Date KANNAN - 7 assessed: 03/31/22 Feeling nervous, anxious, or on edge: 2 = More than half the days Not being able to stop or control worryin = More than half the days Worrying too much about different things: 0 = Not at all Trouble relaxin = Not at all Being so restless that it is hard to sit still: 0 = Not at all Becoming easily annoyed or irritable: 0 = Not at all Feeling afraid as if something awful might happen: 0 = Not at all Total KANNAN-7 score (0-4 normal; 5-9 mild; 10-14 moderate; 15-21 severe): 4 Source: Developed by Drs. Aaron Garcia, Perla Teresa, Henok Israel and colleagues, with an educational angela from [employer]. Review of Systems Const Denies chills, Denies fatigue, Denies fever(s) and Denies poor appetite Eyes Denies no additional complaints ENT Reports Normal hearing present Card Denies chest pain, Denies syncope, Denies rapid heart rate and Denies dyspnea Resp Denies cough and Denies dyspnea GI Reports abdominal pain (all over burning in nature ), Denies change in stool character, Denies constipation, Denies diarrhea, Denies nausea and Denies vomiting Denies dysuria, Denies urinary frequency and Denies urinary urgency Neuro Reports Normal hearing present, Denies confusion and Denies syncope Psych Denies confusion Endo Denies fatigue Physical exam (Primary Care) Vital Signs: Last Vital Signs Pulse 60 11/07/22 10:03 BP 114/74 11/07/22 10:03 Pulse Ox 98 11/07/22 10:03 Oxygen Delivery Method Room Air 11/07/22 10:03 BMI result Body Mass Index 28.9 Tobacco/Smoking Status: Tobacco use Status Tobacco use date assessed 07/07/22 11/07/22 10:07 Patient Tobacco Use Status Current everyday Tobacco 11/07/22 10:07 Tobacco use type Cigarette 11/07/22 10:07 e-Cigarette/Vaping Use Never Used 11/07/22 10:07 PHQ-9: PHQ-9 Score PHQ-9: Total score 7 11/07/22 10:21 Depression Screening Interpretation: Positive Depression Screening Follow-up: Existing condition and In treatment Thrive Assessment: Date of Thrive Assessment Date Thrive assessed 03/31/22 11/07/22 10:07 Currently or been in a relationship where the following occur: no concerns reported Const General: No confusion Orientation/consciousness: No confusion HENMT Head: Yes normocephalic and Yes atraumatic Eyes Conjunctivae: conjunctivae normal Chest Chest palpation & inspection: normal inspection of the chest Resp Effort & Inspection: normal respiratory effort Auscultation: clear to auscultation bilaterally, no crackles, no rhonchi and no wheezes Cardio Rate: regular rate Rhythm: regular rhythm Heart sounds: S1 normal heart sound present and S2 normal heart sound present GI Inspection: Yes normal to inspection Palpation (GI): Soft to palpation, Tenderness to palpation present (GI) (all over ), no guarding, not rigid, No hepatosplenomegaly present and No Rebound tenderness present Auscultation: normal bowel sounds General: Yes CVA tenderness bilateral Back/Spine/Pelvis Back: CVA tenderness Neuro General: No confusion Cranial nerves: Yes Normal hearing present Extrem General: No edema Assessment and Plan Assessment & Plan (1) Dysuria: Code(s): R30.0 - Dysuria Plan: Patient unable to void in office today, urinalysis with reflex culture ordered. (2) Abdominal pain: Code(s): R10.9 - Unspecified abdominal pain Plan: CBC CMP ordered.No concers for acute abdomen at this time, burning sensation possibly related to GERD. Patient recently seen by GI and ill have colonscopy over the next few months. (3) GERD (gastroesophageal reflux disease): Code(s): K21.9 - Gastro-esophageal reflux disease without esophagitis Qualifiers: Esophagitis presence: without esophagitis Qualified Code(s): K21.9 - Gastro-esophageal reflux disease without esophagitis Plan: Continue on PPI therapy If abdominal burning persists will consider referral to Gastroenterology for possible EGD if warranted. Avoid the foods that cause that, usually spicy foods, tomato products, juices, coffee, soda and foods that you're sensitive to.? After eating do not lie down, allow 3-4 hours before lying down. And keep the head of the bed above 30 degrees to avoid the acid from going up. Plan Keep scheduled follow with pcp Orders: Orders Comprehensive Met. Panel Today R30.0 - Dysuria UA CC w/rflx Micro + Cult Today R30.0 - Dysuria Coding Level of Care Code Est Pt Level 3 (46544) Diagnoses Dysuria R30.0 Abdominal pain R10.9 GERD (gastroesophageal reflux disease) K21.9 Esophagitis presence: without esophagitis
[2022-11-07 10:03] VITALS: BP 114/74; PULSE 60; O2SAT 98; BMI 28.9
== END 2022-11-07 10:32 | disposition home or self-care (01) ==
PROVIDERS: PCP Physician Assistant; Visit Provider Nurse Practitioner Family
DX: R30.0 Dysuria (principal); R10.9 Unspecified abdominal pain; K21.9 Gastro-esophageal reflux disease without esophagitis
CPT/HCPCS: 99213

== ENCOUNTER 2022-11-07 12:12 | Outpatient (REF) | payer OTHER, SELFPAY ==
[2022-11-07 14:27] LABS: Appearance Urine Clear; Color Urine Yellow; Glucose Urine UA Negative (Negative); Leukocyte Esterase Urine Negative (Negative); Nitrite Urine Negative (Negative); Specific Gravity - Urine <= 1.005 (1.005-1.025); Urine Blood Negative (Negative); Urine Ketones Negative (Negative); Urine Protein Negative (Neg-Trace)
[2022-11-08 01:51] LABS: Alanine Aminotransferase 13 U/L (0-40); Albumin Level 4.2 g/dL (3.5-5.0); Alkaline Phosphatase 51 U/L (39-117); Anion Gap 11 (12-20); Aspartate Amino Transferase 19 U/L (5-37); Bilirubin Total 0.8 mg/dL (0.0-1.0); Blood Urea Nitrogen 12 mg/dL (9-16); Calcium 9.8 mg/dL (8.4-10.2); Carbon Dioxide 25 mmol/L (22-29); Chloride 100 mmol/L (96-108); Estimated Glomerular Filt Rate > 60; Glucose Random 80 mg/dL (60-115); Potassium 4.4 mmol/L (3.3-5.1); Sodium 132 mmol/L (135-145); Total Protein 6.6 g/dL (6.5-8.0)
== END 2022-11-07 12:13 | disposition home or self-care (01) ==
LOC: HO.LAB 12:12
PROVIDERS: PCP Physician Assistant; Visit Provider Nurse Practitioner Family
DX: R30.0 Dysuria (principal)
CPT/HCPCS: 36415; 80053; 81003

== ENCOUNTER 2022-11-09 11:10 | Outpatient (REF) | payer OTHER, SELFPAY ==
--- NOTE | ~2022-11-09 | XR_ITS ---
EXAMINATION: XR ABDOMEN COMPLETE CLINICAL INDICATION: Dysuria COMPARISON: None available. TECHNIQUE: 2 views of the abdomen. FINDINGS: The bowel gas pattern is normal with no evidence of ileus or obstruction. Probable distended redundant sigmoid colon. No unusual soft tissue calcifications are noted. The kidneys and bladder are obscured by bowel contents. Partial visualization of right total hip replacement. XR/XR abdomen min 2V IMPRESSION: 1. No obstruction. 2. Probable distended redundant sigmoid colon.
== END 2022-11-09 11:11 | disposition home or self-care (01) ==
LOC: HO.XRAY 11:10
PROVIDERS: PCP Physician Assistant; Visit Provider Physician Assistant
DX: R10.9 Unspecified abdominal pain (principal); R30.0 Dysuria
CPT/HCPCS: 74019

== ENCOUNTER 2022-12-27 08:32 | Outpatient (AMB) | payer OTHER, SELFPAY ==
[2022-12-27 08:35] VITALS: BP 122/84; PULSE 74; O2SAT 97; BMI 28.6
--- NOTE | 2022-12-27 08:35 | MHC.PC.OV ---
Vital Signs 12/27/22 08:35 Height 5 ft 8 in Weight 188 lb 2 oz BMI 28.6 BP 122/84 Blood Pressure Location Lt brachial Position Sitting Pulse 74 Pulse Source Pulse Oximeter Pulse Oximetry (%) 97 Oxygen Delivery Method Room Air Intake Visit Reasons: stomach pain, chest discomfort. Data Communications Software Consultant Required: No Accompanied by: Self / Same As Patient Allergies No Known Allergies Allergy (Verified 12/27/22 09:11) Medication List - Last Reconciled 12/27/22 by Dwayne Ayala MD amiloride 10 mg PO DAILY amoxicillin 2,000 mg (4 x 500 mg) PO ONCE 1 day buspirone 5 mg PO BID cholecalciferol (vitamin D3) (Vitamin D3) 25 mcg PO DAILY diazepam 10 mg PO BID docusate sodium 100 mg PO BID 30 days hydrochlorothiazide 50 mg PO DAILY hydroxyzine HCl 25 mg PO DAILY lithium carbonate 300 mg PO BEDTIME lithium carbonate 600 mg PO BEDTIME olanzapine 20 mg PO BEDTIME olanzapine 10 mg PO BEDTIME pantoprazole 40 mg PO DAILY peg 3350-electrolytes 236-22.74-6.74 -5.86 gram (Golytely) 240 mL PO Q10M 1 day propranolol 20 mg PO TID [Raised toliet seat As directed] walker Folding front wheeled walker zolpidem 10 mg PO BEDTIME PRN Tobacco use date assessed: 12/27/22 Dental Screening Dental Screen Date: 12/27/22 Did you have a dental visit in the last 12 months?: Yes Did you have a dental problem in the last 6 months where you did not have access to dental care?: No Was dental information given to patient?: Patient has dentist HPI stomach pain, chest discomfort. HPI Details Patient comes in today for further evaluation of his symptoms Relates (+) recurrent sharp or shooting pains over his left lower chest area for the past 3 months States that his chest pains do not seem to be associated with activity or exertion but they do feel worse when he takes deep breaths and with movement He denies any recent injury or trauma to his left chest wall and denies any shortness of breath He denies any headaches or dizziness No nausea/vomiting but states that he has chronic constipation and his stomach feels bloated and uncomfortable all the time and he reports experiencing diffuse pains often over his abdomen Is wondering if his left lower chest pains are related to his constipation States that he is scheduled for right shoulder surgery at [facility] in [place] later this month and is concerned that his chest pains will delay his surgery States that he has tried taking some Ibuprofen lately but they do not help much with his chest pains [facility] Medical History Constipation Depression COVID-19 vaccine series completed Family history of malignant hyperthermia Nephrogenic diabetes insipidus HTN (hypertension) Osteoarthritis GERD (gastroesophageal reflux disease) Bipolar 1 disorder Surgical History S/P total right hip arthroplasty Hx of shoulder surgery H/O shoulder surgery H/O knee surgery Family History Mother No problems noted. Father No problems noted. Other Mental health disorder Substance use disorder Social History Household Members Other:: mother Housing: House Are you a primary care professional to a significant other at home: No Do you presently have visiting nurse or other home services: No Alcohol intake: former Year quit: 18 m Patient Tobacco Use Status: Current everyday Tobacco user Tobacco use type: Cigarette Cigarettes Per Day: 6 Years Smoked: 13 e-Cigarette/Vaping Use: Never Used service: No Current occupational status: disabled Cognitive needs: No Hearing needs: No Vision needs: No Questionnaire PHQ-9 Over the last 2 weeks, how often have you been bothered by any of the following problems? 1. Little interest or pleasure in doing things: several days 2. Feeling down, depressed, or hopeless: not at all 3. Trouble falling or staying asleep, or sleeping too much: nearly every day 4. Feeling tired or having little energy: nearly every day 5. Poor appetite or overeating: not at all 6. Feeling bad about yourself - or that you are a failure or have let yourself or your family down: not at all 7. Trouble concentrating on things, such as reading the newspaper or watching television: not at all 8. Moving or speaking so slowly that other people could have noticed. Or the opposite - being so fidgety or restless that you have been moving around a lot more than usual: not at all 9. Thoughts that you would be better off or of hurting yourself in some way: not at all Total score: 7 Depression Screening Interpretation: Positive Depression Screening Follow-up: Existing condition and In treatment 23345 - PHQ-9 Billing: Yes Source: Developed by Drs. Aaron Garcia, Perla Teresa, Henok Israel and colleagues, with an educational angela from [employer]. Thrive Questionnaire Date Thrive assessed: 12/27/22 I am a: Patient What is your living situation today?: I have a steady place to live Within the past 12 months, did the food you bought not last and you didn't have the money to get more?: Never true Within the past 12 months, did you worry whether your food would run out before you got money to buy more?: Never true Do you have trouble paying for medicines?: No Do you have trouble getting transportation to medical appointments?: No Do you have trouble paying your heating and electricity bill?: No Do you have trouble taking care of your child, family member or friend?: No Do you have trouble with day-to-day activities such as bathing, preparing meals, shopping, managing finances, etc.?: No Are you currently unemployed and looking for a job?: No Are you interested in more education?: No Please select the resources that you would like help with: None Currently or been in a relationship where the following occur: no concerns reported AUDIT C Alcohol Use Questionnaire (AUDIT-C) 1. How often do you have a drink containing alcohol?: Never 3. How often do you have six or more drinks on one occasion?: Never Total Score: 0 Score Reviewed/Action Taken: Yes KANNAN-7 AMB Questionnaire KANNAN-7 Date KANNAN - 7 assessed: 12/27/22 Feeling nervous, anxious, or on edge: 2 = More than half the days Not being able to stop or control worryin = More than half the days Worrying too much about different things: 0 = Not at all Trouble relaxin = Not at all Being so restless that it is hard to sit still: 0 = Not at all Becoming easily annoyed or irritable: 0 = Not at all Feeling afraid as if something awful might happen: 0 = Not at all Total KANNAN-7 score (0-4 normal; 5-9 mild; 10-14 moderate; 15-21 severe): 4 Source: Developed by Drs. Aaron Garcia, Perla Teresa, Henok Israel and colleagues, with an educational angela from [employer]. Review of Systems Const Denies chills, Denies fatigue, Denies fever(s) and Denies headache(s) ENT Denies dysphagia, Denies dizziness, Denies otalgia, Denies headache(s), Denies neck pain, Denies odynophagia and Denies sore throat Card Reports chest pain (over the left lower chest wall/ribs - increased on palpation), Denies palpitations and Denies dyspnea Resp Denies cough, Denies dyspnea and Denies wheezing GI Reports abdominal pain (diffuse, on and off), Reports bloating (at times), Reports constipation (chronic), Denies dysphagia, Denies heartburn, Denies diarrhea, Denies nausea, Denies odynophagia and Denies vomiting Denies dysuria, Denies nocturia and Denies urinary frequency Musc Reports arthralgias (both shoulder, worse on the right side) and Denies neck pain Neuro Denies dizziness and Denies headache(s) Psych Reports anxiety Endo Denies fatigue and Denies palpitations Aller/Immun Denies wheezing Physical exam (Primary Care) Vital Signs: Last Vital Signs Pulse 74 12/27/22 08:35 BP 122/84 12/27/22 08:35 Pulse Ox 97 12/27/22 08:35 Oxygen Delivery Method Room Air 12/27/22 08:35 BMI result Body Mass Index 28.6 Tobacco/Smoking Status: Tobacco use Status Tobacco use date assessed 12/27/22 12/27/22 08:42 Patient Tobacco Use Status Current everyday Tobacco 12/27/22 08:42 Tobacco use type Cigarette 12/27/22 08:42 e-Cigarette/Vaping Use Never Used 12/27/22 08:42 PHQ-9: PHQ-9 Score PHQ-9: Total score 7 12/27/22 08:42 Depression Screening Interpretation: Positive Depression Screening Follow-up: Existing condition and In treatment Thrive Assessment: Date of Thrive Assessment Date Thrive assessed 12/27/22 12/27/22 08:42 Currently or been in a relationship where the following occur: no concerns reported Const General: no acute distress and alert Neck Neck: Yes no lymphadenopathy and Yes supple Chest Other: (+) tenderness on palpation over the left lower ribs along the anterior and anterolateral axillary line Resp Auscultation: clear to auscultation bilaterally, no rales and no wheezes Cardio Rate: regular rate Rhythm: regular rhythm Heart sounds: no murmurs GI Palpation (GI): Soft to palpation, nontender and No hepatosplenomegaly present Extrem General: Yes no clubbing, cyanosis or edema Assessment and Plan Assessment & Plan (1) Left-sided chest pain: Code(s): R07.9 - Chest pain, unspecified Plan: Patient reassured that his left-sided chest pains appear to be more of a musculoskeletal pain and are unlikely to be cardiac in origin - is likely due to some form of costochondritis Will send him for x-rays of the left ribs for further evaluation Will start him for now on some Lidocaine 5% ointment to apply directly over the painful area(s) on his left lower chest wall/ribs up to 4 times a day PRN May also apply some warm compress over the area PRN for symptomatic relief (2) Constipation: Code(s): K59.00 - Constipation, unspecified Qualifiers: Constipation type: unspecified constipation type Qualified Code(s): K59.00 - Constipation, unspecified Plan: Patient is encouraged to increase his oral fluid and fiber intake to help with his constipation Recalls taking some stool softeners in the past (Docusate?) which he thinks did not help much Will start him this time on Senna 8.6 mg 1 tablet BID PRN May need to see GI for further evaluation if Rx do not help Plan Follow up with PCP as scheduled in a couple of weeks Orders: Orders XR ribs LT min 3V w CXR1V Today R07.9 - Chest pain, unspecified Medications: New lidocaine 5% 1 appl topical QID 15 days PRN 60 grams 1RF pain sennosides (senna) 8.6 mg PO BID 30 days PRN 60 tabs 1RF constipation Coding Level of Care Code Est Pt Level 3 (26105) Diagnoses Left-sided chest pain R07.9 Constipation, unspecified constipation type K59.00 Constipation type: unspecified constipation type
== END 2022-12-27 09:27 | disposition home or self-care (01) ==
PROVIDERS: PCP Physician Assistant; Visit Provider Internal Medicine
DX: R07.9 Chest pain, unspecified (principal); K59.00 Constipation, unspecified
CPT/HCPCS: 99213

== ENCOUNTER 2022-12-27 09:30 | Outpatient (REF) | payer OTHER, SELFPAY ==
[2022-12-27 10:32] LABS: Hematocrit 42.5 % (42.0-52.0); Hemoglobin 14.5 g/dl (14.0-18.0); Mean Corpuscular HGB Conc 34.1 g/dl (31.0-36.0); Mean Corpuscular Hemoglobin 31.7 pg (27.0-33.0); Mean Corpuscular Volume 92.8 fL (80.0-98.0); Mean Platelet Volume 10.2 fL (9.4-12.4); Platelet Count 275 X10*3/uL (160-400); Red Blood Count 4.58 X10*6/uL (4.60-5.80); Red Cell Distribution Width 12.5 % (11.0-16.0); White Blood Count 11.1 X10*3/uL (4.8-10.8)
[2022-12-27 10:43] LABS: Estimated Average Glucose 88 mg/dL; Hemoglobin A1c % 4.7 % (<6.0)
[2022-12-27 11:00] LABS: Alanine Aminotransferase 19 U/L (0-40); Albumin Level 4.5 g/dL (3.5-5.0); Alkaline Phosphatase 61 U/L (39-117); Anion Gap 10 (12-20); Aspartate Amino Transferase 22 U/L (5-37); Bilirubin Total 0.5 mg/dL (0.0-1.0); Blood Urea Nitrogen 10 mg/dL (9-16); Calcium 10.1 mg/dL (8.4-10.2); Carbon Dioxide 25 mmol/L (22-29); Chloride 108 mmol/L (96-108); Cholesterol 210 mg/dL (<200); Estimated Glomerular Filt Rate > 60; Glucose Fasting 91 mg/dL (60-99); HDL Cholesterol 36 mg/dL (>40); LDL Cholesterol Calculated 136 mg/dL (<100); Potassium 3.8 mmol/L (3.3-5.1); Sodium 139 mmol/L (135-145); Triglycerides 194 mg/dL (<150)
[2022-12-27 11:18] LABS: Prostate Specific Antigen Scr 0.65 ng/mL (<0.05-4.0)
[2022-12-27 11:42] LABS: Creatinine Urine 35.28 mg/dL; Microalbumin Urine < 5.0 mg/L
== END 2022-12-27 09:31 | disposition home or self-care (01) ==
LOC: HO.LAB 09:30
PROVIDERS: Absent Provider Physician Assistant; PCP Physician Assistant; Visit Provider Internal Medicine
DX: R07.9 Chest pain, unspecified (principal); I10 Essential (primary) hypertension; R73.09 Other abnormal glucose; Z12.5 Encounter for screening for malignant neoplasm of prostate
CPT/HCPCS: 36415; 71101; 80053; 80061; 82043; 82570; 83036; 84153; 85027

== ENCOUNTER 2023-01-09 13:47 | Outpatient (AMB) | payer OTHER, SELFPAY ==
[2023-01-09 13:48] VITALS: BP 100/72; PULSE 76; RESP 16; O2SAT 98; BMI 29.6
--- NOTE | 2023-01-09 13:48 | MHC.PC.OV ---
Vital Signs 01/09/23 13:48 Height 5 ft 8 in Weight 195 lb BMI 29.6 BP 100/72 Blood Pressure Location Rt brachial Position Sitting Respiration 16 Pulse 76 Pulse Source Pulse Oximeter Pulse Oximetry (%) 98 Oxygen Delivery Method Room Air Intake Visit Reasons: 6mth f/u Gas Meter Mechanic Required: No Accompanied by: Self / Same As Patient Allergies succinylcholine Allergy (Severe, Verified 01/09/23 14:04) Malignant hyperthermia Medication List - Last Reconciled 01/09/23 by Basim Pruett PA-C amiloride 10 mg PO DAILY buspirone 5 mg PO BID cholecalciferol (vitamin D3) (Vitamin D3) 25 mcg PO DAILY diazepam 10 mg PO BID docusate sodium 100 mg PO BID 30 days hydrochlorothiazide 50 mg PO DAILY hydroxyzine HCl 25 mg PO DAILY lidocaine 5% 1 appl topical QID PRN 15 days lithium carbonate 300 mg PO BEDTIME lithium carbonate 600 mg PO BEDTIME olanzapine 20 mg PO BEDTIME olanzapine 10 mg PO BEDTIME pantoprazole 40 mg PO DAILY peg 3350-electrolytes 236-22.74-6.74 -5.86 gram (Golytely) 240 mL PO Q10M 1 day propranolol 20 mg PO TID [Raised toliet seat As directed] sennosides (senna) 8.6 mg PO BID PRN 30 days walker Folding front wheeled walker zolpidem 10 mg PO BEDTIME PRN Tobacco use date assessed: 12/27/22 Dental Screening Dental Screen Date: 01/09/23 Did you have a dental visit in the last 12 months?: Yes Did you have a dental problem in the last 6 months where you did not have access to dental care?: No Was dental information given to patient?: Patient has dentist HPI 6mth f/u HPI Details Bakari is a 52-year-old male here today for follow-up visit..? Patient has a past medical history significant for bipolar disorder, hypertension, hyperlipidemia, GERD, diabetes insipidus. .. Recently underwent a revision of his total right shoulder arthroplasty done at [facility]. He is about 3 days postop. Does report the pain is bad. Does have pain medication available to him. Advised on limiting his NSAID use due to him being on lithium./ . CURRENT MEDICAL CONDITIONS--> Smoker:? Unfortunately still smoking 6-8 cigarettes per day, advised to quit.? Offered nicotine replacement though declines my offers. ? .. ? Bipolar disorder: Patient is followed by Psychiatry ( Gagandeep Salvador) and continues on mood stabilization with lithium.? Most recent lithium level stable. He does report having increased anxiety over the last year.? He says ever since he stopped drinking alcohol he has been unable to completely control his anxiety as the alcohol was what he used to control this. .. Hypertension: Blood pressure today in office acceptable, will continue current dose of amlodipine with goal blood pressure to be below 140/90 ? .. ? Diabetes Insipidus : Is followed by meter record clerk in [facility].? 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 Continues to have slightly high calcium level Laboratory Tests 04/28/22 12/27/22 12/27/22 05:33 09:58 09:58 Hgb 12.0 L 14.5 D Creatinine 0.93 Cholesterol 210 H PSA Screen 0.65 Urine Microalbumin < 5.0 PFSH Medical History Constipation Depression COVID-19 vaccine series completed Family history of malignant hyperthermia Nephrogenic diabetes insipidus HTN (hypertension) Osteoarthritis GERD (gastroesophageal reflux disease) Bipolar 1 disorder Surgical History (Updated 01/09/23 @ 14:16 by Basim Pruett PA-C) History of left shoulder replacement S/P total right hip arthroplasty Hx of shoulder surgery H/O shoulder surgery H/O knee surgery Family History Mother No problems noted. Father No problems noted. Other Mental health disorder Substance use disorder Social History Household Members Other:: mother Housing: House Are you a primary healthcare social worker to a significant other at home: No Do you presently have visiting nurse or other home services: No Alcohol intake: former Year quit: 18 m Patient Tobacco Use Status: Current everyday Tobacco user Tobacco use type: Cigarette Cigarettes Per Day: 6 Years Smoked: 13 e-Cigarette/Vaping Use: Never Used service: No Current occupational status: disabled Cognitive needs: No Hearing needs: No Vision needs: No Questionnaire Thrive Questionnaire Date Thrive assessed: 12/27/22 KANNAN-7 AMB Questionnaire KANNAN-7 Date KANNAN - 7 assessed: 12/27/22 Source: Developed by DrsNeha Garcia, Perla Teresa, Henok Israel and colleagues, with an educational angela from [employer]. Physical exam (Primary Care) Vital Signs: Last Vital Signs Pulse 76 01/09/23 13:48 Resp 16 01/09/23 13:48 BP 100/72 01/09/23 13:48 Pulse Ox 98 01/09/23 13:48 Oxygen Delivery Method Room Air 01/09/23 13:48 BMI result Body Mass Index 29.6 Tobacco/Smoking Status: Tobacco use Status Tobacco use date assessed 12/27/22 01/09/23 13:48 Patient Tobacco Use Status Current everyday Tobacco 01/09/23 13:48 Tobacco use type Cigarette 01/09/23 13:48 e-Cigarette/Vaping Use Never Used 01/09/23 13:48 Thrive Assessment: Date of Thrive Assessment Date Thrive assessed 12/27/22 01/09/23 13:48 Assessment and Plan Assessment & Plan (1) HTN (hypertension): Code(s): I10 - Essential (primary) hypertension Qualifiers: Hypertension type: primary hypertension Qualified Code(s): I10 - Essential (primary) hypertension Plan: Patient's blood pressure acceptable today in office. Will continue his current dose of amlodipine with goal blood pressure to be below 140/90 (2) GERD (gastroesophageal reflux disease): Code(s): K21.9 - Gastro-esophageal reflux disease without esophagitis Qualifiers: Esophagitis presence: without esophagitis Qualified Code(s): K21.9 - Gastro-esophageal reflux disease without esophagitis Plan: Patient's GERD symptoms have been well maintained with current dose of Protonix. Unfortunately continues to smoke and does understand he needs to quit smoking and void gastric irritants. (3) Tobacco dependence: Code(s): F17.200 - Nicotine dependence, unspecified, uncomplicated Plan: Patient does understand he needs to quit smoking though declines my offers to start nicotine replacement therapy. (4) Bipolar 1 disorder: Code(s): F31.9 - Bipolar disorder, unspecified Plan: Patient continues on lithium for his mood stabilization with good effect. Continues to follow a mental therapist and a psychiatrist who manages his mental health medications. (5) Borderline high cholesterol: Code(s): E78.9 - Disorder of lipoprotein metabolism, unspecified Plan: Noted most recent fasting lipid panel showing borderline high total cholesterol. Advised on working on low-cholesterol diet. Orders: Orders Microalbumin, Random (w Creat) 6 Months I10 - Essential (primary) hypertension Comprehensive [place]. Panel Fast 6 Months I10 - Essential (primary) hypertension Lipid Panel 6 Months E78.9 - Disorder of lipoprotein metabolism, unspecified Prostate Specific Antigen Scr 6 Months E78.9 - Disorder of lipoprotein metabolism, unspecified, Z12.5 - Encounter for screening for malignant neoplasm of prostate Medications: Changed From propranolol 20 mg PO TID F31.9 - Bipolar disorder, unspecified To propranolol 20 mg PO TID 90 days 270 tabs 2RF F31.9 - Bipolar disorder, unspecified Refilled pantoprazole 40 mg PO DAILY 90 tabs 1RF K21.9 - Gastro-esophageal reflux disease without esophagitis Coding Level of Care Code Est Pt Level 4 (76318) Diagnoses Primary hypertension I10 Hypertension type: primary hypertension Gastroesophageal reflux disease without esophagitis K21.9 Esophagitis presence: without esophagitis Tobacco dependence F17.200 Bipolar 1 disorder F31.9 Borderline high cholesterol E78.9
== END 2023-01-09 14:17 | disposition home or self-care (01) ==
PROVIDERS: Visit Provider Physician Assistant
DX: I10 Essential (primary) hypertension (principal); K21.9 Gastro-esophageal reflux disease without esophagitis; F17.200 Nicotine dependence, unspecified, uncomplicated; F31.9 Bipolar disorder, unspecified; E78.9 Disorder of lipoprotein metabolism, unspecified
CPT/HCPCS: 99214

== ENCOUNTER 2023-02-27 13:48 | Outpatient (REF) | payer OTHER, SELFPAY ==
[2023-02-27 14:05] LABS: MANUAL DIFF FLAG NO
[2023-02-27 14:34] LABS: Basophils Percent Auto 0.5 % (0-2); Eosinophils Absolute Auto 0.2 X10*3/uL (0.0-0.4); Eosinophils Percent Auto 2.4 % (0-4); Hematocrit 40.5 % (42.0-52.0); Hemoglobin 13.7 g/dl (14.0-18.0); Imm Gran Abs Auto 0.03 X10*3/uL (0.00-0.03); Imm Gran Pct Auto 0.4 % (0.0-0.4); Lymphocytes Absolute Auto 1.6 X10*3/uL (1.2-4.9); Lymphocytes Percent Auto 20.6 % (20-40); Mean Corpuscular HGB Conc 33.8 g/dl (31.0-36.0); Mean Corpuscular Hemoglobin 32.7 pg (27.0-33.0); Mean Corpuscular Volume 96.7 fL (80.0-98.0); Mean Platelet Volume 9.6 fL (9.4-12.4); Monocytes Absolute Auto 0.5 X10*3/uL (0.1-1.2); Monocytes Percent Auto 5.9 % (2-11); Neutrophils Absolute Auto 5.4 x10*3/uL (2.0-8.3); Neutrophils Percent Auto 70.2 % (45-73); Platelet Count 308 X10*3/uL (160-400); Red Blood Count 4.19 X10*6/uL (4.60-5.80); Red Cell Distribution Width 13.2 % (11.0-16.0); White Blood Count 7.6 X10*3/uL (4.8-10.8)
[2023-02-27 14:49] LABS: Anion Gap 10 (12-20); Blood Urea Nitrogen 9 mg/dL (9-16); Calcium 10.2 mg/dL (8.4-10.2); Carbon Dioxide 28 mmol/L (22-29); Chloride 108 mmol/L (96-108); Cholesterol 239 mg/dL (<200); Estimated Glomerular Filt Rate > 60; HDL Cholesterol 44 mg/dL (>40); Potassium 4.2 mmol/L (3.3-5.1); Sodium 142 mmol/L (135-145); Triglycerides 457 mg/dL (<150)
[2023-02-27 14:57] LABS: Vitamin D 25-OH Total 27.8 ng/mL (>30)
[2023-02-27 15:28] LABS: Appearance Urine Clear; Color Urine Straw; Glucose Urine UA Negative (Negative); Leukocyte Esterase Urine Negative (Negative); Nitrite Urine Negative (Negative); Specific Gravity - Urine <= 1.005 (1.005-1.025); Urine Blood Negative (Negative); Urine Ketones Negative (Negative); Urine Protein Negative (Neg-Trace)
== END 2023-02-27 13:49 | disposition home or self-care (01) ==
LOC: HO.LAB 13:48
PROVIDERS: PCP Physician Assistant; Visit Provider Physician Assistant
DX: E23.2 Diabetes insipidus (principal); F31.9 Bipolar disorder, unspecified; R35.89 Other polyuria
CPT/HCPCS: 36415; 80051; 80061; 81003; 82306; 82310; 82565; 84520; 85025

== ENCOUNTER 2023-05-22 14:00 | Outpatient (RCR) | payer OTHER, SELFPAY | END 2023-09-05 15:00 | disposition home or self-care (01) | LOC: HO.PT 14:00 | PROVIDERS: PCP Physician Assistant; Visit Provider Orthopaedic Surgery | DX: M25.512 Pain in left shoulder (principal); G89.29 Other chronic pain | CPT/HCPCS: 97110; 97140; 97161; 97530 ==

== ENCOUNTER 2023-06-02 13:14 | Outpatient (REF) | payer OTHER, SELFPAY ==
[2023-06-02 14:35] LABS: Lithium 0.66 mmol/L (0.60-1.20)
[2023-06-02 14:49] LABS: Anion Gap 13 (12-20); Blood Urea Nitrogen 13 mg/dL (9-16); Calcium 10.6 mg/dL (8.4-10.2); Carbon Dioxide 25 mmol/L (22-29); Chloride 105 mmol/L (96-108); Estimated Glomerular Filt Rate > 60; Glucose Random 95 mg/dL (60-115); Potassium 4.2 mmol/L (3.3-5.1); Sodium 139 mmol/L (135-145)
[2023-06-02 15:03] LABS: Thyroid Stimulating Hormone 3.09 uIU/mL (0.32-4.0)
== END 2023-06-02 13:15 | disposition home or self-care (01) ==
LOC: HO.LAB 13:14
PROVIDERS: PCP Physician Assistant; Visit Provider Clinical Nurse Specialist Psychiatric/Mental Health, Adult
DX: Z79.899 Other long term (current) drug therapy (principal)
CPT/HCPCS: 36415; 80048; 80178; 84443

== ENCOUNTER 2023-06-20 09:47 | Day surgery (SDC) | payer OTHER, SELFPAY ==
--- NOTE | 2023-06-19 12:09 | P.CONAN_ITS ---
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 (Acute) Congenital dislocation of both shoulders (Acute) Instability of both shoulder joints (Acute) History of total right hip arthroplasty (Acute) Osteoarthritis of left hip (Acute) Left hip pain (Acute) Diabetes insipidus, neurohypophyseal (Acute) HTN (hypertension) (Acute) Screening for hypercholesterolemia (Acute) Screening for hypothyroidism (Acute) Hypercalcemia (Acute) Annual physical exam (Acute) Impaired glucose metabolism (Acute) Diabetes insipidus, nephrogenic (Acute) Bilateral chronic knee pain (Acute) Colon cancer screening (Acute) Bilateral hip pain (Acute) Right knee pain (Acute) GERD (gastroesophageal reflux disease) (Acute) Tobacco dependence (Acute) Osteoarthritis, hip, bilateral (Acute) Osteoarthritis of right hip (Acute) Bipolar 1 disorder (Acute) Sinusitis (Acute) Past Medical History Medical History Constipation Depression COVID-19 vaccine series completed Family history of malignant hyperthermia Nephrogenic diabetes insipidus HTN (hypertension) Osteoarthritis GERD (gastroesophageal reflux disease) Bipolar 1 disorder Family History Family History Mother No problems noted. Father No problems noted. Other Mental health disorder Substance use disorder Family history of problems with anesthesia: Yes Surgical History Surgical History (Updated 01/09/23 @ 14:16 by Basim Pruett PA-C) History of left shoulder replacement S/P total right hip arthroplasty Hx of shoulder surgery H/O shoulder surgery H/O knee surgery History of Problems with Anesthesia: No Social History Social History Household Members Other:: mother Housing: House Are you a primary geriatric personal care aide to a significant other at home: No Do you presently have visiting nurse or other home services: No Alcohol intake: former Year quit: 18 m Patient Tobacco Use Status: Current everyday Tobacco user Tobacco use type: Cigarette Cigarettes Per Day: 6 Years Smoked: 13 e-Cigarette/Vaping Use: Never Used Use of substances other than those prescribed or required for medical reasons: No Are you DNR?: No Advance Directives: No Advance Directives Information Provided: Yes service: No Current occupational status: disabled Cognitive needs: No Hearing needs: No Vision needs: No Meds Allergies Allergy/AdvReac Type Severity Reaction Status Date / Time succinylcholine Allergy Severe Malignant Verified 01/09/23 14:04 hyperthermia Home Medications Medication Instructions Recorded Confirmed Last Taken Type amiloride 5 mg tablet 10 mg PO DAILY 03/05/20 01/09/23 04/26/22 History hydrochlorothiazide 50 mg tablet 50 mg PO DAILY 03/05/20 01/09/23 04/26/22 History lithium carbonate 300 mg capsule 300 mg PO BEDTIME 03/05/20 01/09/23 04/26/22 History lithium carbonate 600 mg capsule 600 mg PO BEDTIME 03/05/20 01/09/23 04/26/22 History olanzapine 10 mg disintegrating 10 mg PO BEDTIME 03/05/20 01/09/23 04/26/22 History tablet zolpidem 10 mg tablet 10 mg PO BEDTIME PRN Insomnia 03/05/20 01/09/23 04/26/22 History hydroxyzine HCl 25 mg tablet 25 mg PO DAILY 11/24/20 01/09/23 04/26/22 History buspirone 5 mg tablet 5 mg PO BID 01/06/22 01/09/23 04/26/22 History diazepam 10 mg tablet 10 mg PO BID 03/29/22 01/09/23 04/26/22 History olanzapine 20 mg disintegrating 20 mg PO BEDTIME 04/20/22 01/09/23 04/26/22 History tablet Exam Pertinent Lab Results Pertinent Lab Results: Laboratory Tests 02/27/23 06/02/23 14:02 13:29 WBC 7.6 Hgb 13.7 L Hct 40.5 L Plt Count 308 Sodium 139 Potassium 4.2 Chloride 105 Carbon Dioxide 25 BUN 13 Creatinine 1.02 Assessment and Plan Assessment Anesthesia Assessment: Chart Reviewed Final Anesthetic Review Family History of Problems with Anesthesia: Yes History of Problems with Anesthesia: No Documented by User: Zacarias Mena MD 06/20/23 11:25 HPI - Anesthesia Eval Consult details Narrative: 53yo M for Colonoscopy MH Uncle had MH. Kit has has mult surgeries, never had problems w anesthesia, but doesn't know what kind of anesthetics he's had. [facility] Past Medical History Medical History Constipation Depression COVID-19 vaccine series completed Family history of malignant hyperthermia Nephrogenic diabetes insipidus HTN (hypertension) Osteoarthritis GERD (gastroesophageal reflux disease) Bipolar 1 disorder Family History Family History Mother No problems noted. Father No problems noted. Other Mental health disorder Substance use disorder Family history of problems with anesthesia: Yes (Malignant hyperthermia) Surgical History Surgical History (Updated 01/09/23 @ 14:16 by Basim Pruett PA-C) History of left shoulder replacement S/P total right hip arthroplasty Hx of shoulder surgery H/O shoulder surgery H/O knee surgery Social History Social History Household Members Other:: mother Housing: House Are you a primary geriatric personal care aide to a significant other at home: No Do you presently have visiting nurse or other home services: No Alcohol intake: former Year quit: 18 m Patient Tobacco Use Status: Current everyday Tobacco user Tobacco use type: Cigarette Cigarettes Per Day: 6 Years Smoked: 13 e-Cigarette/Vaping Use: Never Used Use of substances other than those prescribed or required for medical reasons: No Are you DNR?: No Advance Directives: No Advance Directives Information Provided: Yes service: No Current occupational status: disabled Cognitive needs: No Hearing needs: No Vision needs: No Meds Allergies Allergy/AdvReac Type Severity Reaction Status Date / Time succinylcholine Allergy Severe Malignant Verified 01/09/23 14:04 hyperthermia Home Medications Medication Instructions Recorded Confirmed Last Taken Type amiloride 5 mg tablet 10 mg PO DAILY 03/05/20 01/09/23 04/26/22 History hydrochlorothiazide 50 mg tablet 50 mg PO DAILY 03/05/20 01/09/23 04/26/22 History lithium carbonate 300 mg capsule 300 mg PO BEDTIME 03/05/20 01/09/23 04/26/22 History lithium carbonate 600 mg capsule 600 mg PO BEDTIME 03/05/20 01/09/23 04/26/22 History olanzapine 10 mg disintegrating 10 mg PO BEDTIME 03/05/20 01/09/23 04/26/22 History tablet zolpidem 10 mg tablet 10 mg PO BEDTIME PRN Insomnia 03/05/20 01/09/23 04/26/22 History hydroxyzine HCl 25 mg tablet 25 mg PO DAILY 11/24/20 01/09/23 04/26/22 History buspirone 5 mg tablet 5 mg PO BID 01/06/22 01/09/23 04/26/22 History diazepam 10 mg tablet 10 mg PO BID 03/29/22 01/09/23 04/26/22 History olanzapine 20 mg disintegrating 20 mg PO BEDTIME 04/20/22 01/09/23 04/26/22 History tablet Exam Airway Mallampati Class: II TM Dist: >3cm Neck ROM: Full Loose/Missing/Broken Teeth: No Heart: ok Lungs: ok Other: small mouth Assessment and Plan Assessment Anesthesia Assessment: Anesthesia Plan Discussed Final Anesthetic Review Family History of Problems with Anesthesia: Yes (Malignant hyperthermia) NPO: Yes ASA Class: III Final Preanesthetic Review: No Changes in Pt Med Stat, Meds/Allgs Chart Reviewed, Consent Obtained/Reviewed and Anes Risks/Benef Reviewed Patient Risk: Intermediate Procedure Risk: Low Anesthetic Plan Anesthetic Plan: MAC: and Agree w/ Assess. and Plan Disposition: Standard PACU
--- NOTE | 2023-06-20 10:28 | P.HPSUR_ITS ---
Pre-Procedural Eval Section A - 24 Hr Update-Section A only Date of Service: 06/20/23 Section B - Complete if H&P > 30 days Chief Complaint: Encounter for screening for malignant neoplasm of Relevant Family History (Specify if Yes): No Relevant Social History: None Present Medications: see Short Stay Collaborative assessment Medical History: Significant History ( Constipation Depression COVID-19 vaccine series completed Family history of malignant hyperthermia Nephrogenic diabetes insipidus HTN (hypertension) Osteoarthritis GERD (gastroesophageal reflux disease) Bipolar 1 disorder) History of Previous Operations: Relevant previous surgery/procedure and date(s) (History of left shoulder replacement S/P total right hip arthroplasty Hx of shoulder surgery H/O shoulder surgery H/O knee surgery) Allergies: Allergies Allergy/AdvReac Type Severity Reaction Status Date / Time succinylcholine Allergy Severe Malignant Verified 01/09/23 14:04 hyperthermia Review of Systems Sugical H&P ROS: Negative: Constitution, Cardiovascular, Respiratory, Neurologi saul, Psychiatric, Hem-Onc, Allergic/Immunologic, Gastrointestinal, Genitourinary, Musculoskeletal, Integumentary, Endocrine and Eyes/Ears/Nose/Throat Exam Surgical H&P Exam: Normal: HEENT, Normal: Heart, Normal: Lungs, Normal: Extremities, Normal: Abdomen, Normal: Skin and Normal: Neurological Plan Diagnosis/Plan: Unchanged I have reviewed the history and physical and performed a pertinent physical examination on my patient. No changes have occurred unless specified. Time Spent With Patient Time: Total time managing care of this patient today ____ minutes.
[2023-06-20 11:10] VITALS: BMI 28.0
[2023-06-20 11:12] VITALS: BP 124/80; PULSE 67; RESP 16; TEMP 36.8; O2SAT 100
--- NOTE | 2023-06-20 11:31 | P.OP_ITS ---
Operative Note Operative Note Date of Service: 06/20/23 Narrative: Operative Information Procedure Description: Colonoscopy Indication: screening Anesthesia: MAC COLONOSCOPY Instrument: Olympus variable stiffness pediatric scope 190L Colonoscopy Monitoring: Vital signs and clinical assessment, continuous EKG monitoring, Pulse oximetry, Carbon Dioxide monitoring and blood pressure monitoring were done throughout the procedure. Colon withdrawal time was 12 minutes. Procedure: The patient was placed in the left lateral decubitis position and pre-procedure medications were administered. After a digital rectal examination of the ano-rectum, the video colonoscope was inserted into the rectum and advanced through the colon to the cecum/TI. The colonoscope was slowly withdrawn in a retrograde panoramic fashion and the colon mucosa was carefully examined including a retroflexed view of the rectum. Findings and interventions are described below. Procedure Difficulty: moderate, pressure applied Findings: Terminal Ileum-normal Cecum:normal Ascending Colon: 10 mm sessile polyp lifted with eleview and then removed with cold snare Transverse Colon -normal Descending Colon:normal Sigmoid Colon: mucosal hypertrophy with scattered diverticulosis Rectum: Retroflexion with small internal hemorrhoids seen, grade I Anorectum - normal Intervention: eleview injection and then cold snare Colon preparation: Hollister Bowel Preparation Scale Right colon; 2 Transverse colon: 2 Left colon; 1-2 (0 = Unprepared colon segment with mucosa not seen due to solid stool that cannot be cleared. 1 = Portion of mucosa of the colon segment seen, but other areas of the colon segment not well seen due to staining, residual stool and/or opaque liquid. 2 = Minor amount of residual staining, small fragments of stool and/or opaque liquid, but mucosa of colon segment seen well. 3 = Entire mucosa of colon segment seen well with no residual staining, small fragments of stool or opaque liquid) Impression and Post Procedure Diagnosis: diverticulosis colon polyp internal hemorrhoids Plan: High fiber diet leaflet Avoid straining at stool, epsom salts and sitz bath, anusol supps or cream Repeat Colonoscopy in 3-4 years due to fair left sided prep or earlier if clinically indicated Above findings were reviewed with the patient and relevant handouts were provided if indicated.
[2023-06-20 12:03] VITALS: BP 108/73; PULSE 65; RESP 18; TEMP 36.3; O2SAT 96
[2023-06-20 12:18] VITALS: BP 124/79; PULSE 69; RESP 20; TEMP 36.6; O2SAT 99
== END 2023-06-20 12:53 | disposition home or self-care (01) ==
PROVIDERS: PCP Physician Assistant; Visit Provider Internal Medicine Gastroenterology
PROC: 0DJD8ZZ Inspection of Lower Intestinal Tract, Via Natural or Artificial Opening Endoscopic (ICD-10-PCS; CPT 45378; principal; 2023-06-20 12:30)
DX: Z12.11 Encounter for screening for malignant neoplasm of colon (principal); D12.2 Benign neoplasm of ascending colon; K57.30 Diverticulosis of large intestine without perforation or abscess without bleeding; K64.0 First degree hemorrhoids; K21.9 Gastro-esophageal reflux disease without esophagitis; N25.1 Nephrogenic diabetes insipidus; I10 Essential (primary) hypertension; F31.9 Bipolar disorder, unspecified; M15.9 Polyosteoarthritis, unspecified; Z84.89 Family history of other specified conditions; Z79.899 Other long term (current) drug therapy; Z88.8 Allergy status to other drugs, medicaments and biological substances; Z98.890 Other specified postprocedural states; F17.210 Nicotine dependence, cigarettes, uncomplicated
CPT/HCPCS: 45385; 45381; 88305; J2704

== ENCOUNTER → 2023-06-20 09:47 | Outpatient (BNV) | payer OTHER, SELFPAY | PROVIDERS: PCP Physician Assistant; Visit Provider Internal Medicine Gastroenterology | DX: Z12.11 Encounter for screening for malignant neoplasm of colon (principal); D12.2 Benign neoplasm of ascending colon; K57.30 Diverticulosis of large intestine without perforation or abscess without bleeding; K64.0 First degree hemorrhoids | CPT/HCPCS: 45381; 45385 ==

== ENCOUNTER 2024-02-26 13:22 | Outpatient (REF) | payer OTHER, SELFPAY ==
[2024-02-26 14:15] LABS: Estimated Average Glucose 94 mg/dL; Hemoglobin A1C 108.4988 umol/L; Hemoglobin A1c % 4.9 % (<6.0); Total Hemoglobin (HGBA1C) 3605.3206 umol/L
[2024-02-26 14:33] LABS: Lithium 0.72 mmol/L (0.60-1.20)
[2024-02-26 14:42] LABS: Alanine Aminotransferase 47 U/L (0-40); Albumin Level 4.6 g/dL (3.5-5.0); Alkaline Phosphatase 51 U/L (39-117); Anion Gap 11 (12-20); Aspartate Amino Transferase 29 U/L (5-37); Bilirubin Total 0.8 mg/dL (0.0-1.0); Blood Urea Nitrogen 9 mg/dL (9-16); Calcium 10.4 mg/dL (8.4-10.2); Carbon Dioxide 26 mmol/L (22-29); Chloride 106 mmol/L (96-108); Cholesterol 235 mg/dL (<200); Estimated Glomerular Filt Rate > 60; Glucose Random 103 mg/dL (60-115); HDL Cholesterol 34 mg/dL (>40); Sodium 139 mmol/L (135-145); Total Protein 7.2 g/dL (6.5-8.0); Triglycerides 490 mg/dL (<150)
[2024-02-26 15:02] LABS: Thyroid Stimulating Hormone 1.13 uIU/mL (0.32-4.0)
[2024-02-26 15:19] LABS: T4 Thyroxine 7.8 ug/dL (4.5-12.0)
== END 2024-02-26 13:23 | disposition home or self-care (01) ==
LOC: HO.LAB 13:22
PROVIDERS: PCP Physician Assistant; Visit Provider Registered Nurse
DX: Z79.899 Other long term (current) drug therapy (principal)
CPT/HCPCS: 36415; 80053; 80061; 80178; 83036; 84436; 84443

== ENCOUNTER → 2024-05-01 08:28 | Outpatient (BNVA) | payer OTHER, SELFPAY | PROVIDERS: PCP Physician Assistant; Visit Provider Physician Assistant | DX: Z00.00 Encounter for general adult medical examination without abnormal findings (principal); N25.1 Nephrogenic diabetes insipidus; F31.9 Bipolar disorder, unspecified; R73.09 Other abnormal glucose; I10 Essential (primary) hypertension | CPT/HCPCS: 96127; 99396 ==

== ENCOUNTER 2024-07-01 14:45 | Outpatient (REF) | payer OTHER, SELFPAY ==
[2024-07-01 15:30] LABS: Hematocrit 39.6 % (42.0-52.0); Hemoglobin 13.2 g/dl (14.0-18.0); Mean Corpuscular HGB Conc 33.3 g/dl (31.0-36.0); Mean Corpuscular Hemoglobin 31.9 pg (27.0-33.0); Mean Corpuscular Volume 95.7 fL (80.0-98.0); Mean Platelet Volume 9.8 fL (9.4-12.4); Platelet Count 246 X10*3/uL (160-400); Red Blood Count 4.14 X10*6/uL (4.60-5.80)
[2024-07-01 16:36] LABS: Creatinine Urine 10.53 mg/dL; Microalbumin Urine < 5.0 mg/L
[2024-07-01 16:37] LABS: Estimated Average Glucose 97 mg/dL; Hemoglobin A1C 109.1348 umol/L
--- OUTSIDE RECORDS SUMMARY | 2024-07-01 17:37 | XMS_ITS | Clinical Summary ---
Author Organization [facility], Address [address] [place] [address] [place] [address] Phone Care Team Providers Care Senior Windows Engineer Name Role Phone Basim Pruett Primary Care Provider [phone] Allergies Active Allergy Reactions Criticality Noted Date Comments Succinylcholine Other (see comments) High 05/23/2017 (Uncle had MH) Medications cholecalciferol (VITAMIN D-3) 25 MCG (1000 UT) capsule TK 1 C PO ONCE D 9 Active naltrexone (DEPADE) 50 MG tablet TK 1 T PO QD 9 Active Lisbon-3 Fatty Acids (FISH OIL CONCENTRATE) 1000 MG capsule TK 1 C PO BID 9 Active omeprazole (PriLOSEC) [address] capsule TK 1 C PO QD 9 Active propranolol (INDERAL) 20 MG tablet TK 1 T PO TID 9 Active zolpidem (AMBIEN) 10 MG tablet TK 1 T PO HS 9 Active acetaminophen (TYLENOL 8 HOUR) 650 MG 8 hr tablet Take 650 mg by mouth every 8 (eight) hours if needed for mild pain Do not crush, chew, or split. Active cetirizine (ZyrTEC) 10 MG tablet Take 10 mg by mouth 1 (one) time each day Active lithium 600 MG capsule Take 600 mg by mouth 3 (three) times a day with meals Active busPIRone (BUSPAR) 5 MG tablet Take 5 mg by mouth in the morning and 5 mg in the evening. 2 Active clonazePAM (KlonoPIN) 0.5 MG tablet Take 0.5 mg by mouth 2 Active hydrOXYzine (ATARAX) 25 MG tablet TAKE 1 TABLET BY MOUTH ONCE A DAY NEEDED FOR ANXIETY 2 Active lithium 300 MG capsule Take 300 mg by mouth at bed time 2 Active OLANZapine zydis (ZyPREXA) 10 MG dispersible tablet DISSOLVE 1 TABLET BY MOUTH AT BEDTIME WITH 20 MG TABLET 2 Active OLANZapine zydis (ZyPREXA) 20 MG dispersible tablet DISSOLVE 1 TABLET ON THE TONGUE AT BEDTIME 2 Active Aspirin Low Dose 81 MG EC tablet 3 Active diazePAM (VALIUM) 10 MG tablet Take 10 mg by mouth in the morning and 10 mg in the evening. 3 Active pantoprazole (PROTONIX) 40 MG EC tablet Take 40 mg by mouth 1 (one) time each day 3 Active senna (SENOKOT) 8.6 MG tablet TAKE 1 TABLET BY MOUTH TWICE DAILY NEEDED FOR CONSTIPATION 3 Active aMILoride (MIDAMOR) 5 MG tablet Take 2 tablets (10 mg total) by mouth 1 (one) time each day 180 tablet 3 4 10/31/19 25 Active hydroCHLOROthia zide (HYDRODIURIL) 50 MG tablet Take 1 tablet (50 mg total) by mouth 1 (one) time each day 90 tablet 3 4 10/31/19 25 Active Active Problems Problem Noted Date Diagnosed Date 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 Overview (12/26/2023): Replacing diagnoses that were inactivated after the 12/26/23 Regulatory Import Diabetes insipidus 04/03/2019 Polyuria 04/03/2019 Bipolar I disorder Chronic kidney disease stage 2 Resolved Problems Problem Noted Date Diagnosed Date Resolved Date Electrolyte imbalance 04/03/20192020 Pain in left shoulder 10/07/20152020 Immunizations Name Administration Dates Next Due Influenza, Quadrivalent, Preservative Free 01/01 Family History Medical History Relation Comments Cancer Father aunt and uncle/h is brother and sister Relation Status Comments Father Alive Mother Alive Social History Tobacco Use Types Packs/Day Years Used Date Smoking Tobacco: Every Day Cigarettes 0.3 11.7 Started: 10/07/2012 Tobacco Cessation:Ready to Q uit: Not Asked; Counseling Given: Not Answered Alcohol Use Standard Drinks/Week Comments Yes 0 (1 standard drink = 0.6 oz pure alcohol) Alcoholic Drinks/day: Occasional social drink Sex and Gender Information Value Date Recorded Sex Assigned at Not on file Legal Sex Male 4:35 PM EST Gender Identity Not on file Sexual Orientation Not on file Last Filed Vital Signs Vital Sign Reading Time Taken Comments Blood Pressure 116/68 02/28/2023 1:58 PM EST Pulse - - Temperature - - Respiratory Rate - - Oxygen Saturation - - Inhaled Oxygen Concentration - - Weight 86.2 kg (190 lb) 02/28/2023 1:58 PM EST Height 172.7 cm (5' 8 ) 02/28/2023 1:58 PM EST Body Mass Index 28.89 02/28/2023 1:58 PM EST Plan of Treatment Health Maintenance Due Date Last Done Comments Pneumococcal Vaccine: Pediat rics (0 to 5 Years) and At-Risk Patients (6 to 64 Years) (1 of 2 - PCV) 1977 Hepatitis B Vaccine (1 of 3 - 19+ 3-dose series) 04/02 Colorectal Cancer Screening: Annual FOBT 2020 Colorectal Cancer Screening: Colonoscopy 2020 Colorectal Cancer Screening: Sigmoidoscopy 2020 Influenza Vaccine (Season Ended) 2024 01/02/20 20 Insurance [facility] DUAL SNP ([id number]) [place] [id number] [place] [address] Care Teams Senior Windows Engineer Relationship Specialty Start Date End Date Basim Pruett PA [address] [facility], [address] [place] [address] PCP - General Physician Stick Puller 07/11/22
--- OUTSIDE RECORDS SUMMARY | 2024-07-01 17:37 | XMS_ITS | Encounter Summary ---
Author Organization [facility], Address [address] [place] [address] Phone Care Team Providers Care Iv Rn Name Role Phone Basim Pruett Primary Care Provider [phone] Encounter Details Date Type Department Care Team (Late st Contact Info) Description 02/28/2023 Documentation Only [facility], [address] [place] [id number] Junito Stock PA Social History Tobacco Use Types Packs/Day Years Used Date Smoking Tobacco: Every Day Cigarettes 0.3 11.7 Started: 10/07/2012 Alcohol Use Standard Drinks/Week Comments Yes 0 (1 standard drink = 0.6 oz pure alcohol) Alcoholic Drinks/day: Occasional social drink Sex and Gender Information Value Date Recorded Sex Assigned at Not on file Legal Sex Male 4:35 PM EST Gender Identity Not on file Sexual Orientation Not on file documented as of this encounter Plan of Treatment Not on file documented as of this encounter Visit Diagnoses Not on filedocumented in this encounter Care Teams Iv Rn Relationship Specialty Start Date End Date Basim Pruett PA [address] [place] [address], [address] [place] [address] PCP - General Physician Private Security Guard 07/11/22 documented as of this encounter
--- OUTSIDE RECORDS SUMMARY | 2024-07-01 17:37 | XMS_ITS | Encounter Summary ---
Author Organization [facility] Address [address] [place] [address] Care Team Providers Care Grainer Machine Name Role Phone Basim Pruett Primary Care Provider [phone] Reason for Visit * Reason Onset Date Comments PAC Referral Request 08/29/2022 [id number] REFERRAL 08/29/2022 Encounter Details Date Type Department Care Team (Late st Contact Info) Description 08/29/2022 Telephone [facility] [address] [place] [id number] Telephone Intake, Staff PAC Referral Request; [id number] REFERRAL Social History Tobacco Use Types Packs/Day Years Used Date Smoking Tobacco: Every Day Smokeless Tobacco: Former Comments:: Alcohol Use Standard Drinks/Week Comments No 0 (1 standard drink = 0.6 oz pur e alcohol) Sex and Gender Information Value Date Recorded Sex Assigned at Not on file Legal Sex Male 7:03 AM EDT Gender Identity Not on file Sexual Orientation Not on file documented as of this encounter Miscellaneous Notes * Telephone Encounter - Tiffanie Ledezma - 08/29/2022 2:19 PM EDT Patient calling stating that MRI ordered by Dr. Rodriguez has not been done yet. Patient asking for [facility] to be scheduled at [facility]. Please call patient with any questions at [phone] Thank you documented in this encounter Plan of Treatment Not on file documented as of this encounter Visit Diagnoses Not on filedocumented in this encounter Care Teams Grainer Machine Relationship Specialty Start Date End Date Basim Pruett PA [address] [place] [address] [phone] PCP - General 12/23/22 documented as of this encounter
--- OUTSIDE RECORDS SUMMARY | 2024-07-01 17:38 | XMS_ITS | Clinical Summary ---
Author Organization [facility] Address [address] [place] [address] Care Team Providers Care Risk Control Field Representative Name Role Phone Basim Pruett Primary Care Provider [phone] Allergies Active Allergy Reactions Criticality Noted Date Comments Succinylcholine Malignant Hyperthermia High 05/23/19 18 (Uncle had MH) Medications hydrOXYzine (VISTARIL) 25 mg capsule Take 25 mg by mouth every morning. 1 12/21/19 17 Active propranolol (INDERAL) 20 mg tablet TK 1 T PO TID 2 01/02/20 17 Active zolpidem (AMBIEN) 10 mg tablet TK 1 T PO HS 2 12/13/19 17 Active hydroCHLOROthiazid e (HYDRODIURIL) 50 mg tablet May resume in 1 week if BP>125/80 0 05/24/19 18 Active Additional Information Patient taking differently: 50 mg oral Daily, May resume in 1 week if BP>125/80, Reported on 12/23/2022 AMILoride (MIDAMOR) 5 mg tablet May resume in 1 week if BP>125/80 2 05/24/19 18 Active Additional Information Patient taking differently: 10 mg oral Daily, May resume in 1 week if BP>125/80, Reported on 12/23/2022 OLANZapine (ZyPREXA Zydis) 10 mg disintegrating tablet Dissolve 1 tablet (10 mg total) in the mouth nightly. Total 30 mg daily 05/24/19 18 Active OLANZapine zydis (ZyPREXA) 20 mg disintegrating tablet Total 30 mg daily 2 05/24/19 18 Active lithium 300 mg capsule Total 900 mg daily 2 05/24/19 18 Active Additional Information Patient taking differently: 900 mg oral Nightly, Total 900 mg daily- takes a 300mg tab and a 600mg tab, Reported on 12/23/2022 lithium 600 mg capsule Total 900 mg daily 2 05/24/19 Active Additional Information Patient taking differently: Total 900 mg daily- takes a 300mg tab and a 600mg tab, Reported on 12/23/2022 diazePAM (VALIUM) 10 mg tablet 2 times a day. 10mg in am and 15mg in afternoon 12/20/19 Active amoxicillin (AMOXIL) 500 mg capsule Prior to dental procedures- took 12/22/22 12/16/19 Active busPIRone (BUSPAR) 5 mg tablet SMARTSI Tablet(s) By Mouth Twice Daily 11/16/19 Active ibuprofen (MOTRIN) 200 mg tablet Take 600 mg by mouth every 6 hours as needed for pain. Active acetaminophen (TYLENOL) 325 mg tablet Take 2 tablets (650 mg total) by mouth every 6 hours. 01/08/20 Active Active Problems Problem Noted Date Diagnosed Date Ulnar neuropathy of both upper extremities 06/22 Osteoarthritis of left shoulder 01/07/2023 Left shoulder pain 01/06/2023 Bipolar I disorder 12/22/2022 Diabetes insipidus 04/03/2019 Chronic left shoulder pain 05/23/2017 Pain in joint of left shoulder 10/07/2015 Family History Medical History Relation Name Comments Other Mother's Brother Malignant H yperthermia Relation Name Status Comments Brother Father Alive Mother Alive Mother's Brother Social History Tobacco Use Types Packs/Day Years Used Date Smoking Tobacco: Every Day Cigarettes 0.5 5 Smokeless Tobacco: Former Comments:: Alcohol Use Standard Drinks/Week Comments No 0 (1 standard drink = 0.6 oz pur e alcohol) Sex and Gender Information Value Date Recorded Sex Assigned at Not on file Legal Sex Male 7:03 AM EDT Gender Identity Not on file Sexual Orientation Not on file Last Filed Vital Signs Vital Sign Reading Time Taken Comments Blood Pressure 130/89 01/07/2023 8:18 AM EDT Pulse 63 01/07/2023 8:18 AM EDT Temperature 36.3 ??C (97.3 ??F) 01/07/2023 7:00 AM ED T Respiratory Rate 16 01/07/2023 9:16 AM EDT Oxygen Saturation 96% 01/07/2023 7:00 AM EDT Inhaled Oxygen Concentration - - Weight 84 kg (185 lb 3 oz) 01/06/2023 6:34 PM ED T Height 169 cm (5' 6.54 ) 01/06/2023 6:34 PM EDT Body Mass Index 29.41 01/06/2023 6:34 PM EDT Plan of Treatment Health Maintenance Due Date Last Done Comments Cologuard 1971 Colon Cancer Screening 1971 Colonoscopy 1971 FOBT / Fit Test 1971 HIV Screening 1971 Hepatitis C Screening 1971 Sigmoidoscopy 1971 Hepatitis B Vaccines (1 of 3 - 19+ 3-dose series) 1990 Pneumococcal Vaccine: 50+ Ye ars (2 of 2 - PCV) 11/17/2020 11/18/2019 Zoster Vaccines (2 of 2) 04/07/2023 02/10/2023 COVID-19 Vaccine (6 - 2023-2 5 season) 2023 12/21/2022, 01/19/2022, 02/15/2021, Additional history exists Alcohol/Substance Use Screening 03/27/2024 Depression Screening and Follow-Up 03/27/2024 Social Drivers of Health Monika ual Screening 03/27/2024 Influenza Vaccine (Season Ended) 2024 12/21/2022, 01/06/2022, 02/10/2021, Additional history exists DTaP,Tdap,and Td Vaccines (2 - Td or Tdap) 11/17/2029 11/18/2019 RSV Vaccine (60+ years old a nd patients) (1 - 1-dose 75+ series) 2046 Medical Devices Implanted Type Area Class B Driver Device Identifier Shelf Expiration Date Model / Serial / Lot Head Humeral Bipolar [id number] Versa-Dial - [id number] Implanted:Qty: 1 on 05/23/2017 by Chris Rodriguez MD at [facility] Implant Left: Shoulder Isatu 04/26/2027 [id number] / / [id number] Adapter Taper Versa-Dial - [id number] Implanted:Qty: 1 on 05/23/2017 by Chris Rodriguez MD at [facility] Implant Left: Shoulder Iastu 04/28/2027 [id number] / / [id number] Stem Humeral Primary Micro Porous Plasma 23xlg88uh Comprehensive - [id number] Implanted:Qty: 1 on 05/23/2017 by Chris Rodriguez MD at [facility] Implant Left: Shoulder Isatu 04/18/2027 [id number] / / [id number] Baseplate Mini W/Taper Adapter 25mm Glenosphere - [id number] Implanted:Qty: 1 on 01/06/2023 by Chris Rodriguez MD at [facility] Implant Left: Humerus Isatu 10/12/2032 [id number] / / [id number] Glenosphere Reverse Shoulder Standard 36mm Versa-Dial - [id number] Implanted:Qty: 1 on 01/06/2023 by Chris Rodriguez MD at [facility] Implant Left: Humerus Isatu 08/29/2032 [id number] / / [id number] Bearing Humeral Standard 36mm Comprehensive Vivacit-E - [id number] Implanted:Qty: 1 on 01/06/2023 by Chris Rodriguez MD at [facility] Implant Left: Humerus Isatu 11/01/2027 [id number] / / [id number] Stem Humeral Size 13 Standard - [id number] Implanted:Qty: 1 on 01/06/2023 by Chris Rodriguez MD at [facility] Implant Left: Humerus Isatu 01/12/2032 [id number] / / [id number] Tray Humeral Neutral 6mm - [id number] Implanted:Qty: 1 on 01/06/2023 by Chris Rodriguez MD at [facility] Implant Left: Humerus Isatu 10/16/2032 [id number] / / [id number] Screw Fixed Locking With 3.5 Hex 4.13ocz00ps - [id number] Implanted:Qty: 1 on 01/06/2023 by Chris Rodriguez MD at [facility] Screw Left: Humerus Isatu 09/13/2032 [id number] / / [id number] Screw Fixed Locking With 3.5 Hex 4.19vpy18bm - [id number] Implanted:Qty: 1 on 01/06/2023 by Chris Rodriguez MD at [facility] Screw Left: Humerus Isatu 11/05/2031 [id number] / / [id number] Screw Central With 3.5 Hex Titanium 6.7bsw31qt - [id number] Implanted:Qty: 1 on 01/06/2023 by Chris Rodriguez MD at [facility] Screw Left: Humerus Isatu 2032 [id number] / / [id number] Explanted Type Area Class B Driver Device Identifier Shelf Expiration Date Model / Serial / Lot Humeral Head Explanted:Qty: 1 on 05/23/2017 at [facility] Left: Shoulder [employer] ? / / Insurance [facility] [place] [id number] Advance Directives * Full Code (Latest Code Status on File) Date Activated Date Inactivated Comments 01/06/2023 2:05 PM 01/07/2023 2:44 PM * Presumed Full Code Date Activated Date Inactivated Comments 01/06/2023 7:07 AM 01/06/2023 2:05 PM * Full Code Date Activated Date Inactivated Comments 05/23/2017 3:47 PM 05/24/2017 4:58 PM Care Teams Risk Control Field Representative Relationship Specialty Start Date End Date Basim Pruett PA [address] [place] [address] PCP - General 12/23/22
--- OUTSIDE RECORDS SUMMARY | 2024-07-01 17:38 | XMS_ITS | Encounter Summary ---
Author Organization [facility], Address [address] [place] [address] Phone Care Team Providers Care Engineering Job Titles Name Role Phone Basim Pruett Primary Care Provider [phone] Encounter Details Date Type Department Care Team (Late st Contact Info) Description 05/18/2021 Documentation Only [facility], [address] [place] [address] Canelo Ivan MD [address] [place] [phone] Social History Tobacco Use Types Packs/Day Years [...] on filedocumented in this encounter Care Teams Engineering Job Titles Relationship Specialty Start Date End Date Basim Pruett PA [address] [place] [address] Drive, [address] [place] [address] PCP - General Physician Short Goods Drier 07/11/22 documented as of this encounter
--- OUTSIDE RECORDS SUMMARY | 2024-07-01 17:38 | XMS_ITS | Encounter Summary ---
Author Organization [facility], Address [address] [place] [address] Phone Care Team Providers Care Search Analyst Name Role Phone Basim Pruett Primary Care Provider [phone] Encounter Details Date Type Department Care Team (Late st Contact Info) Description 10/18/2022 Documentation Only [facility], [address] [place] [phone] Junito Stock PA Social History Tobacco Use [...] on filedocumented in this encounter Care Teams Search Analyst Relationship Specialty Start Date End Date Basim Pruett PA [address] [place] [address], [address] [place] [address] PCP - General Physician Bead Builder 07/11/22 documented as of this encounter
--- OUTSIDE RECORDS SUMMARY | 2024-07-01 17:38 | XMS_ITS | Referral Summary ---
Author Organization [facility] Address [address] [place] [address] Care Team Providers Care Strip Catcher Name Role Phone Basim Pruett Primary Care Provider [phone] Allergies Active Allergy Reactions Criticality Noted Date [...] Pain in joint of left shoulder 10/07/2015 Social History Tobacco Use Types Packs/Day Years [...] 01/06/2023 6:34 PM EDT Plan of Treatment Not on file Medical Devices Implanted Type Area Expressive Music Therapist Device Identifier Shelf Expiration Date Model / Serial / Lot Head Humeral Bipolar [id number] Versa-Dial - [id number] Implanted:Qty: 1 on 05/23/2017 by Chris Rodriguez MD at [facility] Implant Left: Shoulder Isatu 04/26/2027 [id number] / / [id number] Adapter Taper Versa-Dial - [id number] Implanted:Qty: 1 on 05/23/2017 by Chris Rodriguez MD at [facility] Implant Left: Shoulder Isatu 04/28/2027 [id number] / / [id number] Stem Humeral Primary Micro Porous Plasma 70wwf41aw Comprehensive - [id number] Implanted:Qty: 1 on 05/23/2017 by Chris Rodriguez MD at [facility] Implant Left: Shoulder Isatu 04/18/2027 [id number] / / [id number] Baseplate Mini W/Taper Adapter 25mm Glenosphere - [id number] Implanted:Qty: 1 on 01/06/2023 by Chris Rodriguez MD at [facility] Implant Left: Humerus Isatu 10/12/2032 [id number] / / [id number] Glenosphere Reverse Shoulder Standard 36mm Versa-Dial - [id number] Implanted:Qty: 1 on 01/06/2023 by Chris Rodriguez MD at [facility] Implant Left: Humerus Isatu 08/29/2032 [id number] / / [id number] Bearing Humeral Standard 36mm Comprehensive Vivacit-E - [id number] Implanted:Qty: 1 on 01/06/2023 by Chris Rodriguez MD at [facility] Implant Left: Humerus Isatu 11/01/2027 [id number] / / [id number] Stem Humeral Size 13 Standard - [id number] Implanted:Qty: 1 on 01/06/2023 by Chris Rodriguez MD at [facility] Implant Left: Humerus Isatu 01/12/2032 [id number] / / [id number] Tray Humeral Neutral 6mm - [id number] Implanted:Qty: 1 on 01/06/2023 by Chris Rodriguez MD at [facility] Implant Left: Humerus Isatu 10/16/2032 [id number] / / [id number] Screw Fixed Locking With 3.5 Hex 4.10cfz02dg - [id number] Implanted:Qty: 1 on 01/06/2023 by Chris Rodriguez MD at [facility] Screw Left: Humerus Isatu 09/13/2032 [id number] / / [id number] Screw Fixed Locking With 3.5 Hex 4.29get88di - [id number] Implanted:Qty: 1 on 01/06/2023 by Chris Rodriguez MD at [facility] Screw Left: Humerus Isatu 11/05/2031 [id number] / / [id number] Screw Central With 3.5 Hex Titanium 6.5fuu81hq - [id number] Implanted:Qty: 1 on 01/06/2023 by Chris Rodriguez MD at [facility] Screw Left: Humerus Isatu 2032 [id number] / / [id number] Explanted Type Area Expressive Music Therapist Device Identifier Shelf Expiration Date Model / Serial / Lot Humeral Head Explanted:Qty: 1 on 05/23/2017 at [facility] Left: Shoulder [employer] ? / / Insurance [facility] Advance Directives * Full Code (Latest Code Status on File) Date Activated Date Inactivated Comments 01/06/2023 2:05 PM 01/07/2023 2:44 PM * Presumed Full Code Date Activated Date Inactivated Comments 01/06/2023 7:07 AM 01/06/2023 2:05 PM * Full Code Date Activated Date Inactivated Comments 05/23/2017 3:47 PM 05/24/2017 4:58 PM Care Teams Strip Catcher Relationship Specialty Start Date End Date Basim Pruett PA [address] [place] [address] PCP - General 12/23/22
[2024-07-01 18:17] LABS: Prostate Specific Antigen Scr 0.55 ng/mL (<0.05-4.0)
[2024-07-01 19:17] LABS: Alanine Aminotransferase 28 U/L (0-40); Albumin Level 4.7 g/dL (3.5-5.0); Anion Gap 11 (12-20); Aspartate Amino Transferase 34 U/L (5-37); Bilirubin Total 0.9 mg/dL (0.0-1.0); Blood Urea Nitrogen 10 mg/dL (9-16); Calcium 10.5 mg/dL (8.4-10.2); Carbon Dioxide 27 mmol/L (22-29); Chloride 102 mmol/L (96-108); Cholesterol 184 mg/dL (<200); Estimated Glomerular Filt Rate > 60; Glucose Fasting 83 mg/dL (60-99); HDL Cholesterol 40 mg/dL (>40); LDL Cholesterol Calculated 111 mg/dL (<100); Potassium 3.8 mmol/L (3.3-5.1); Sodium 136 mmol/L (135-145); Total Protein 7.1 g/dL (6.5-8.0); Triglycerides 165 mg/dL (<150)
[2024-07-01 19:31] LABS: Alkaline Phosphatase 53 U/L (39-117)
== END 2024-07-01 14:46 | disposition home or self-care (01) ==
LOC: HO.LAB 14:45
PROVIDERS: PCP Physician Assistant; Visit Provider Physician Assistant
DX: I10 Essential (primary) hypertension (principal); Z12.5 Encounter for screening for malignant neoplasm of prostate; E78.9 Disorder of lipoprotein metabolism, unspecified; R73.09 Other abnormal glucose
CPT/HCPCS: 36415; 80053; 80061; 82043; 82570; 83036; 84153; 85027

== ENCOUNTER 2024-08-15 13:21 | Inpatient (IN) | payer OTHER, SELFPAY ==
[2024-08-15 13:31] VITALS: BP 164/64; PULSE 74; O2SAT 98
[2024-08-15 13:32] VITALS: BP 131/76; PULSE 68; RESP 18; TEMP 36.8; O2SAT 96; BMI 30.5
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
--- NOTE | 2024-08-15 13:50 | ECG_ITS ---
Test Reason : medical clearance Blood Pressure : */* mmHG Vent. Rate : 62 BPM Atrial Rate : 62 BPM P-R Int : 192 ms QRS Dur : 102 ms QT Int : 408 ms P-R-T Axes : -13 21 4 degrees QTcB Int : 414 ms Normal sinus rhythm Normal ECG When compared with ECG of 29-Mar-2022 13:47, No significant change was found Referred By: Modesta Grace Electronically Signed By: Beny Tejada
[2024-08-15] MEDS: diazePAM 5 MG TABLET PO (14:02)
[2024-08-15 14:16] LABS: MANUAL DIFF FLAG NO
[2024-08-15 14:18] LABS: Basophils Absolute Auto 0.1 X10*3/uL (0.0-0.2); Basophils Percent Auto 0.8 % (0-2); Eosinophils Absolute Auto 0.1 X10*3/uL (0.0-0.4); Eosinophils Percent Auto 1.5 % (0-4); Hemoglobin 14.1 g/dl (14.0-18.0); Imm Gran Abs Auto 0.04 X10*3/uL (0.00-0.03); Imm Gran Pct Auto 0.5 % (0.0-0.4); Lymphocytes Absolute Auto 1.1 X10*3/uL (1.2-4.9); Lymphocytes Percent Auto 14.1 % (20-40); Mean Corpuscular HGB Conc 33.6 g/dl (31.0-36.0); Mean Corpuscular Hemoglobin 32.9 pg (27.0-33.0); Mean Corpuscular Volume 98.1 fL (80.0-98.0); Monocytes Absolute Auto 0.5 X10*3/uL (0.1-1.2); Monocytes Percent Auto 5.9 % (2-11); Neutrophils Absolute Auto 6.1 x10*3/uL (2.0-8.3); Neutrophils Percent Auto 77.2 % (45-73); Platelet Count 275 X10*3/uL (160-400); Red Blood Count 4.28 X10*6/uL (4.60-5.80); Red Cell Distribution Width 13.5 % (11.0-16.0); White Blood Count 7.9 X10*3/uL (4.8-10.8)
[2024-08-15 14:30] LABS: COVID-19 Test Negative (Negative); IDNOW Serial# 55D5AD1C
[2024-08-15 14:37] LABS: Acetaminophen LAB 6 mcg/mL (<30); Alanine Aminotransferase 89 U/L (0-40); Alkaline Phosphatase 57 U/L (39-117); Anion Gap 12 (12-20); Aspartate Amino Transferase 55 U/L (5-37); Bilirubin Total 1.5 mg/dL (0.0-1.0); Blood Urea Nitrogen 13 mg/dL (9-16); Calcium 10.6 mg/dL (8.4-10.2); Carbon Dioxide 26 mmol/L (22-29); Chloride 103 mmol/L (96-108); Creatinine Clr Calc Pharmacy 82.8; Estimated Glomerular Filt Rate > 60; Ethanol < 10 mg/dL; Glucose Random 99 mg/dL (60-115); Potassium 4.5 mmol/L (3.3-5.1); Salicylate < 5.0 mg/dL (15-30); Sodium 136 mmol/L (135-145); Total Protein 7.4 g/dL (6.5-8.0)
[2024-08-15 14:44] LABS: Appearance Urine Clear; Color Urine Yellow; Glucose Urine UA Negative (Negative); Leukocyte Esterase Urine Negative (Negative); Nitrite Urine Negative (Negative); Specific Gravity - Urine <= 1.005 (1.005-1.025); Urine Blood Negative (Negative); Urine Ketones Negative (Negative); Urine Protein Negative (Neg-Trace)
[2024-08-15 14:52] LABS: Amphetamine Screen Urine Not Detected (Not Detect); Barbiturates, Urine Not Detected (Not Detect); Benzodiazepines Screen Urine POSITIVE (Not Detect); Buprenorphine Scr Not Detected (Not Detect); Cannabinoid Screen Urine Not Detected (Not Detect); Cocaine Screen Urine Not Detected (Not Detect); Fentanyl, urine Not Detected (Not Detect); Methadone Screen, Urine Not Detected (Not Detect); Opiate Screen Urine Not Detected (Not Detect); Oxycodone Screen Urine Not Detected (Not Detect); Phencyclidine Screen Urine Not Detected (Not Detect)
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
[2024-08-15] MEDS: Acetaminophen 325 MG TABLET 650 MG PO (16:19)
[2024-08-15 16:39] VITALS: BP 129/73; PULSE 72; RESP 18; TEMP 36.1; O2SAT 100
--- NOTE | 2024-08-15 17:18 | PC.NURSE ---
Spoke to Care pressure steamer tender Linden and asked for an update on pt. was told a provider still needed to leaf size picker pt. RN informed that PA had seen pt. Called and verified with rn charge Zaida of this concern to address it.
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
--- NOTE | 2024-08-15 18:54 | PC.NURSE ---
Report given to CLOVER Mcgraw.
--- NOTE | 2024-08-15 19:18 | PC.NURSE ---
patient ambulating ad alonzo in milieu, attempted to have assist from pharmacy,no staff available per Bang Frank called [facility] on hold.
--- NOTE | 2024-08-15 19:27 | PC.NURSE ---
t/w reviewed list from [facility] and there appear to be discrepancies between lithium (last picked up 06/05 per pharmacy) and olanzapine which was not recently picked up per pharmacy. remainder of list will b e completed per patients statements.
[2024-08-15 20:34] VITALS: BP 129/76; PULSE 76; RESP 18; TEMP 36.3; O2SAT 100
--- NOTE | 2024-08-15 21:16 | PHA.MEDREC ---
Pharmacy Consult ? Medication Reconciliation Pharmacy has reviewed the medication reconciliation done by nursing. Spoke to patient to confirm med list. patient states he is on Diazepam 10 mg BID and Diazepam 5 mg daily at noon, Plum carb 300 mg with Plum Carb 600 mg for a total dose of 900 mg daily, Olanzapine 20 mg with Olanzapine 10 mg for a total daily dose of 30 mg. Amiloride 10 daily.
[2024-08-15 21:19] VITALS: BP 129/76; PULSE 76
[2024-08-15] MEDS: Lithium Carbonate 300 MG CAPSULE PO (21:19)
[2024-08-15] MEDS: Propranolol HCL 20 MG TABLET PO (21:19)
[2024-08-15] MEDS: Zolpidem Tartrate 5 MG TABLET 10 MG PO (21:19)
[2024-08-15] MEDS: OLANZapine ODT 10 MG TAB.RAPDIS TRANSLINGU (21:20)
[2024-08-15] MEDS: OLANZapine ODT 10 MG TAB.RAPDIS 20 MG TRANSLINGU (21:20)
[2024-08-15] MEDS: Lithium Carbonate 300 MG CAPSULE 600 MG PO (21:20)
[2024-08-15] MEDS: busPIRone HCl 5 MG TABLET 15 MG PO (21:47)
--- NOTE | 2024-08-16 01:29 | PC.NURSE ---
patient after recent return from bathroom is seated up in bed
[2024-08-16] MEDS: Acetaminophen 325 MG TABLET 650 MG PO ×3 (03:01→20:43)
--- NOTE | 2024-08-16 03:39 | PC.NURSE ---
patient observed periodically exercising in room.
[2024-08-16 04:36] VITALS: BP 119/76; PULSE 78; RESP 16; TEMP 36.4; O2SAT 97
--- NOTE | 2024-08-16 07:28 | PC.NURSE ---
Assumed care of patient at 0645, patient appears to be in no apparent distress this am, calm and cooperative, eating breakfast at table in his room, offering no complaints to this RN. Continue plan of care for IPLOC
[2024-08-16] MEDS: diazePAM 5 MG TABLET 10 MG PO ×2 (08:01→20:43)
[2024-08-16] MEDS: busPIRone HCl 5 MG TABLET 15 MG PO ×3 (08:01→20:44)
[2024-08-16] MEDS: Propranolol HCL 20 MG TABLET PO ×3 (08:01→20:42)
[2024-08-16] MEDS: Spironolactone 25 MG TABLET 50 MG PO ×2 (08:01→20:43)
--- NOTE | 2024-08-16 10:19 | PC.NURSE ---
Pharmacy mariza texted for HCTZ at 0801
[2024-08-16 10:57] LABS: Lithium 0.79 mmol/L (0.60-1.20)
[2024-08-16 11:20] VITALS: BMI 28.9
[2024-08-16 11:22] VITALS: BP 119/78; PULSE 73; RESP 18; TEMP 37.3; O2SAT 96
[2024-08-16] MEDS: hydroCHLOROthiazide 50 MG TABLET PO (12:17)
[2024-08-16] MEDS: diazePAM 5 MG TABLET PO (12:55)
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
[2024-08-16 20:00] VITALS: BP 119/75; PULSE 89; TEMP 36.9; O2SAT 97
[2024-08-16 20:42] VITALS: BP 119/75; PULSE 89
[2024-08-16] MEDS: OLANZapine ODT 10 MG TAB.RAPDIS 20 MG TRANSLINGU (20:42)
[2024-08-16] MEDS: Lithium Carbonate ER 300 MG TABLET.ER 600 MG PO (20:42)
[2024-08-16] MEDS: OLANZapine ODT 10 MG TAB.RAPDIS TRANSLINGU (20:42)
[2024-08-16] MEDS: Lithium Carbonate ER 300 MG TABLET.ER PO (20:42)
[2024-08-16 20:43] VITALS: BP 119/75
[2024-08-17] MEDS: Zolpidem Tartrate 5 MG TABLET 10 MG PO ×2 (01:37→21:26)
[2024-08-17] MEDS: Acetaminophen 325 MG TABLET 650 MG PO ×2 (07:29→21:29)
[2024-08-17] MEDS: hydrOXYzine HCL 25 MG TABLET PO (07:30)
[2024-08-17 08:05] LABS: Estimated Average Glucose 94 mg/dL; Hemoglobin A1C 100.0523 umol/L; Hemoglobin A1c % 4.9 % (<6.0); Total Hemoglobin (HGBA1C) 3384.6086 umol/L
[2024-08-17 08:12] LABS: Albumin Level 4.5 g/dL (3.5-5.0); Alkaline Phosphatase 53 U/L (39-117); Anion Gap 13 (12-20); Aspartate Amino Transferase 35 U/L (5-37); Bilirubin Total 0.7 mg/dL (0.0-1.0); Blood Urea Nitrogen 30 mg/dL (9-16); Calcium 10.5 mg/dL (8.4-10.2); Carbon Dioxide 26 mmol/L (22-29); Chloride 105 mmol/L (96-108); Cholesterol 173 mg/dL (<200); Creatinine Clr Calc Pharmacy 103.7; Estimated Glomerular Filt Rate > 60; Glucose Random 110 mg/dL (60-115); HDL Cholesterol 44 mg/dL (>40); LDL Cholesterol Calculated 79 mg/dL (<100); Potassium 4.1 mmol/L (3.3-5.1); Sodium 140 mmol/L (135-145); Total Protein 6.8 g/dL (6.5-8.0); Triglycerides 253 mg/dL (<150)
[2024-08-17 08:30] VITALS: BP 135/69; PULSE 84; RESP 16; TEMP 37.1; O2SAT 98
[2024-08-17 08:33] LABS: TSH reflex Free T4 1.76 uIU/mL (0.32-4.0)
[2024-08-17] MEDS: busPIRone HCl 5 MG TABLET 15 MG PO ×3 (08:44→21:25)
[2024-08-17] MEDS: diazePAM 5 MG TABLET 10 MG PO ×2 (08:44→21:25)
[2024-08-17] MEDS: Propranolol HCL 20 MG TABLET PO ×3 (08:44→21:49)
[2024-08-17] MEDS: Spironolactone 25 MG TABLET 50 MG PO ×2 (08:44→21:22)
[2024-08-17] MEDS: hydroCHLOROthiazide 50 MG TABLET PO (08:44)
[2024-08-17 08:46] LABS: Alanine Aminotransferase 59 U/L (0-40)
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
[2024-08-17] MEDS: diazePAM 5 MG TABLET PO (11:23)
[2024-08-17 14:38] VITALS: BP 126/68; PULSE 95
[2024-08-17 19:58] VITALS: BP 124/68; PULSE 77; TEMP 37.2; O2SAT 97
[2024-08-17] MEDS: OLANZapine ODT 10 MG TAB.RAPDIS 30 MG TRANSLINGU (21:23)
[2024-08-17] MEDS: Lithium Carbonate ER 300 MG TABLET.ER 900 MG PO (21:24)
[2024-08-18] MEDS: traZODone HCL 50 MG TABLET PO ×4 (01:08→21:14)
[2024-08-18] MEDS: OLANZapine 5 MG TABLET PO (01:09)
[2024-08-18 08:30] VITALS: BP 172/101; PULSE 86; RESP 18; TEMP 36.9; O2SAT 97
[2024-08-18] MEDS: busPIRone HCl 5 MG TABLET 15 MG PO ×3 (08:42→20:16)
[2024-08-18] MEDS: hydroCHLOROthiazide 50 MG TABLET PO (08:42)
[2024-08-18] MEDS: diazePAM 5 MG TABLET 10 MG PO ×2 (08:42→20:16)
[2024-08-18] MEDS: Spironolactone 25 MG TABLET 50 MG PO ×2 (08:43→20:17)
[2024-08-18] MEDS: Propranolol HCL 20 MG TABLET PO ×3 (08:43→20:17)
[2024-08-18 09:24] VITALS: BP 138/69; PULSE 84
[2024-08-18] MEDS: Acetaminophen 325 MG TABLET 650 MG PO (09:57)
[2024-08-18] MEDS: diazePAM 5 MG TABLET PO (11:56)
[2024-08-18 15:11] VITALS: BP 135/73; PULSE 83
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
[2024-08-18] MEDS: hydrOXYzine HCL 25 MG TABLET PO (15:13)
[2024-08-18 19:43] VITALS: BP 141/61; PULSE 82; TEMP 37.4; O2SAT 97
[2024-08-18] MEDS: Zolpidem Tartrate 5 MG TABLET 10 MG PO (20:17)
[2024-08-18] MEDS: Lithium Carbonate ER 300 MG TABLET.ER 900 MG PO (20:17)
[2024-08-18] MEDS: OLANZapine ODT 10 MG TAB.RAPDIS 30 MG TRANSLINGU (20:17)
[2024-08-19 08:30] VITALS: BP 130/63; PULSE 67; RESP 18; TEMP 36.7; O2SAT 97
[2024-08-19] MEDS: Spironolactone 25 MG TABLET 50 MG PO ×2 (09:03→20:01)
[2024-08-19] MEDS: busPIRone HCl 5 MG TABLET 15 MG PO ×3 (09:03→20:00)
[2024-08-19] MEDS: hydroCHLOROthiazide 50 MG TABLET PO (09:03)
[2024-08-19] MEDS: diazePAM 5 MG TABLET 10 MG PO ×2 (09:03→20:01)
[2024-08-19] MEDS: Propranolol HCL 20 MG TABLET PO ×3 (09:03→20:00)
[2024-08-19] MEDS: Acetaminophen 325 MG TABLET 650 MG PO ×2 (09:58→15:58)
[2024-08-19] MEDS: diazePAM 5 MG TABLET PO (11:46)
[2024-08-19 14:30] VITALS: BP 133/84; PULSE 87
[2024-08-19] MEDS: hydrOXYzine HCL 25 MG TABLET PO (14:53)
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
[2024-08-19 19:53] VITALS: BP 131/68; PULSE 76; RESP 16; TEMP 36.4; O2SAT 98
[2024-08-19] MEDS: Lithium Carbonate ER 300 MG TABLET.ER 900 MG PO (20:01)
[2024-08-19] MEDS: Zolpidem Tartrate 5 MG TABLET 10 MG PO (20:01)
[2024-08-19] MEDS: OLANZapine ODT 10 MG TAB.RAPDIS 30 MG TRANSLINGU (20:01)
[2024-08-19] MEDS: traZODone HCL 50 MG TABLET PO ×2 (20:02→21:56)
[2024-08-20] MEDS: hydrOXYzine HCL 25 MG TABLET PO ×2 (03:12→10:15)
[2024-08-20] MEDS: OLANZapine 5 MG TABLET PO (03:12)
[2024-08-20 07:45] VITALS: BP 141/80; PULSE 99; TEMP 36.9; O2SAT 97
[2024-08-20 07:59] LABS: Lithium 0.45 mmol/L (0.60-1.20)
[2024-08-20] MEDS: busPIRone HCl 5 MG TABLET 15 MG PO ×3 (08:20→20:41)
[2024-08-20] MEDS: Spironolactone 25 MG TABLET 50 MG PO ×2 (08:20→20:40)
[2024-08-20] MEDS: hydroCHLOROthiazide 50 MG TABLET PO (08:20)
[2024-08-20] MEDS: diazePAM 5 MG TABLET 10 MG PO ×2 (08:20→20:42)
[2024-08-20] MEDS: Propranolol HCL 20 MG TABLET PO ×3 (08:20→20:39)
[2024-08-20] MEDS: diazePAM 5 MG TABLET PO (11:50)
[2024-08-20] MEDS: Acetaminophen 325 MG TABLET 650 MG PO (11:50)
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
[2024-08-20 14:22] VITALS: BP 121/72; PULSE 80
[2024-08-20 19:56] VITALS: BP 141/76; PULSE 81; RESP 16; TEMP 37.1; O2SAT 99
[2024-08-20 20:40] VITALS: BP 141/76
[2024-08-20] MEDS: Lithium Carbonate ER 300 MG TABLET.ER 900 MG PO (20:40)
[2024-08-20] MEDS: OLANZapine ODT 10 MG TAB.RAPDIS 30 MG TRANSLINGU (20:42)
[2024-08-20] MEDS: Zolpidem Tartrate 5 MG TABLET 10 MG PO (22:26)
[2024-08-20] MEDS: traZODone HCL 50 MG TABLET PO (22:26)
[2024-08-21] MEDS: traZODone HCL 50 MG TABLET PO ×2 (04:20→21:32)
[2024-08-21 08:00] VITALS: BP 116/70; PULSE 85; TEMP 36.8; O2SAT 96
[2024-08-21] MEDS: diazePAM 5 MG TABLET 10 MG PO ×2 (08:45→20:16)
[2024-08-21] MEDS: Spironolactone 25 MG TABLET 50 MG PO ×2 (08:46→20:15)
[2024-08-21] MEDS: Propranolol HCL 20 MG TABLET PO ×3 (08:46→20:14)
[2024-08-21] MEDS: hydroCHLOROthiazide 50 MG TABLET PO (08:46)
[2024-08-21] MEDS: busPIRone HCl 5 MG TABLET 15 MG PO ×3 (08:46→20:15)
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
[2024-08-21] MEDS: diazePAM 5 MG TABLET PO (11:37)
[2024-08-21] MEDS: hydrOXYzine HCL 25 MG TABLET PO ×2 (11:37→17:13)
[2024-08-21] MEDS: OLANZapine 5 MG TABLET PO (12:51)
[2024-08-21 14:02] VITALS: BP 122/69; PULSE 92
[2024-08-21 20:11] VITALS: BP 133/79; PULSE 88; TEMP 36.9; O2SAT 97
[2024-08-21 20:14] VITALS: BP 137/79; PULSE 88
[2024-08-21 20:15] VITALS: BP 137/79
[2024-08-21] MEDS: Acetaminophen 325 MG TABLET 650 MG PO (20:15)
[2024-08-21] MEDS: OLANZapine ODT 10 MG TAB.RAPDIS 30 MG TRANSLINGU (20:16)
[2024-08-21] MEDS: Zolpidem Tartrate 5 MG TABLET 10 MG PO (20:16)
[2024-08-21] MEDS: Lithium Carbonate ER 300 MG TABLET.ER 900 MG PO (20:17)
[2024-08-22] MEDS: traZODone HCL 50 MG TABLET PO ×3 (00:43→23:35)
[2024-08-22 07:00] VITALS: BMI 30.9
[2024-08-22 08:00] VITALS: BP 134/71; PULSE 84; RESP 16; TEMP 36.7; O2SAT 98
[2024-08-22] MEDS: Spironolactone 25 MG TABLET 50 MG PO ×2 (08:06→21:09)
[2024-08-22] MEDS: Propranolol HCL 20 MG TABLET PO ×3 (08:07→21:05)
[2024-08-22] MEDS: busPIRone HCl 5 MG TABLET 15 MG PO ×3 (08:07→21:05)
[2024-08-22] MEDS: diazePAM 5 MG TABLET 10 MG PO ×2 (08:07→21:04)
[2024-08-22] MEDS: hydroCHLOROthiazide 50 MG TABLET PO (08:07)
[2024-08-22] MEDS: diazePAM 5 MG TABLET PO (11:28)
[2024-08-22] MEDS: Acetaminophen 325 MG TABLET 650 MG PO ×2 (12:54→21:04)
[2024-08-22 14:06] VITALS: BP 139/80; PULSE 84
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
[2024-08-22] MEDS: hydrOXYzine HCL 25 MG TABLET PO (18:26)
[2024-08-22 20:00] VITALS: BP 133/74; PULSE 86; TEMP 37.1; O2SAT 96
[2024-08-22] MEDS: Zolpidem Tartrate 5 MG TABLET 10 MG PO (21:04)
[2024-08-22] MEDS: OLANZapine ODT 10 MG TAB.RAPDIS 30 MG TRANSLINGU (21:04)
[2024-08-22 21:05] VITALS: BP 133/74; PULSE 86
[2024-08-22] MEDS: Lithium Carbonate ER 300 MG TABLET.ER 900 MG PO (21:05)
[2024-08-22 21:09] VITALS: BP 133/74
[2024-08-23] VITALS (7 sets, daily range): BP systolic 129–144; BP diastolic 61–84; PULSE 82–85; RESP 15–16; TEMP 36.6–36.8; O2SAT 97
[2024-08-23] MEDS: hydroCHLOROthiazide 50 MG TABLET PO (08:52)
[2024-08-23] MEDS: diazePAM 5 MG TABLET 10 MG PO ×2 (08:53→21:14)
[2024-08-23] MEDS: busPIRone HCl 5 MG TABLET 15 MG PO ×3 (08:53→21:15)
[2024-08-23] MEDS: Propranolol HCL 20 MG TABLET PO ×3 (08:53→21:14)
[2024-08-23] MEDS: Spironolactone 25 MG TABLET 50 MG PO ×2 (08:53→21:13)
[2024-08-23] MEDS: Acetaminophen 325 MG TABLET 650 MG PO ×2 (09:10→21:13)
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
[2024-08-23] MEDS: diazePAM 5 MG TABLET PO (11:57)
[2024-08-23] MEDS: hydrOXYzine HCL 25 MG TABLET PO (11:57)
[2024-08-23 14:26] LABS: Blood Urea Nitrogen 31 mg/dL (9-16); Creatinine Clr Calc Pharmacy 86.3; Estimated Glomerular Filt Rate > 60
[2024-08-23 14:28] LABS: TSH reflex Free T4 1.03 uIU/mL (0.32-4.0)
[2024-08-23] MEDS: OLANZapine 5 MG TABLET PO (17:16)
[2024-08-23] MEDS: Lithium Carbonate ER 300 MG TABLET.ER 900 MG PO (21:13)
[2024-08-23] MEDS: OLANZapine ODT 10 MG TAB.RAPDIS 30 MG TRANSLINGU (21:15)
[2024-08-23] MEDS: Zolpidem Tartrate 5 MG TABLET 10 MG PO (21:15)
[2024-08-24] MEDS: traZODone HCL 50 MG TABLET PO (03:23)
[2024-08-24 08:00] VITALS: BP 131/57; PULSE 77; TEMP 37.4; O2SAT 95
[2024-08-24] MEDS: hydroCHLOROthiazide 50 MG TABLET PO (09:28)
[2024-08-24] MEDS: busPIRone HCl 5 MG TABLET 15 MG PO ×3 (09:28→21:04)
[2024-08-24] MEDS: Propranolol HCL 20 MG TABLET PO ×3 (09:28→21:02)
[2024-08-24] MEDS: Spironolactone 25 MG TABLET 50 MG PO ×2 (09:28→21:04)
[2024-08-24] MEDS: diazePAM 5 MG TABLET 10 MG PO ×2 (09:28→21:04)
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
[2024-08-24 10:49] VITALS: TEMP 37
[2024-08-24] MEDS: hydrOXYzine HCL 25 MG TABLET PO ×2 (10:56→17:00)
[2024-08-24] MEDS: Acetaminophen 325 MG TABLET 650 MG PO ×2 (10:57→18:21)
[2024-08-24] MEDS: diazePAM 5 MG TABLET PO (12:38)
[2024-08-24] MEDS: OLANZapine 5 MG TABLET PO (13:34)
[2024-08-24 14:45] VITALS: BP 128/72
[2024-08-24 19:37] VITALS: BP 128/76; PULSE 92; RESP 16; TEMP 37.2; O2SAT 95
[2024-08-24] MEDS: Zolpidem Tartrate 5 MG TABLET 10 MG PO (21:01)
[2024-08-24] MEDS: OLANZapine ODT 10 MG TAB.RAPDIS 30 MG TRANSLINGU (21:01)
[2024-08-24 21:02] VITALS: BP 131/67; PULSE 89
[2024-08-24] MEDS: Lithium Carbonate ER 300 MG TABLET.ER 900 MG PO (21:02)
[2024-08-24 21:04] VITALS: BP 131/67
[2024-08-25] MEDS: hydrOXYzine HCL 25 MG TABLET PO ×3 (00:31→16:40)
[2024-08-25] MEDS: traZODone HCL 50 MG TABLET PO (02:45)
[2024-08-25 02:53] VITALS: TEMP 36.1
[2024-08-25 08:00] VITALS: BP 126/88; PULSE 85; RESP 16; TEMP 37; O2SAT 97
[2024-08-25] MEDS: hydroCHLOROthiazide 50 MG TABLET PO (08:46)
[2024-08-25] MEDS: diazePAM 5 MG TABLET 10 MG PO ×2 (08:46→20:00)
[2024-08-25] MEDS: Propranolol HCL 20 MG TABLET PO ×3 (08:46→20:00)
[2024-08-25] MEDS: busPIRone HCl 5 MG TABLET 15 MG PO ×3 (08:46→20:01)
[2024-08-25] MEDS: Spironolactone 25 MG TABLET 50 MG PO ×2 (08:46→20:01)
[2024-08-25] MEDS: Acetaminophen 325 MG TABLET 650 MG PO ×2 (09:19→15:48)
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
[2024-08-25] MEDS: diazePAM 5 MG TABLET PO (12:21)
[2024-08-25 14:15] VITALS: BP 128/79; PULSE 81
[2024-08-25] MEDS: OLANZapine 5 MG TABLET PO (14:15)
[2024-08-25 20:00] VITALS: BP 157/99; PULSE 82; RESP 15; TEMP 37.1; O2SAT 100
[2024-08-25] MEDS: Lithium Carbonate ER 300 MG TABLET.ER 900 MG PO (20:00)
[2024-08-25] MEDS: OLANZapine ODT 10 MG TAB.RAPDIS 30 MG TRANSLINGU (20:00)
[2024-08-25] MEDS: Zolpidem Tartrate 5 MG TABLET 10 MG PO (20:01)
[2024-08-26] MEDS: hydrOXYzine HCL 25 MG TABLET PO ×2 (00:49→10:51)
[2024-08-26] MEDS: OLANZapine 5 MG TABLET PO (00:49)
[2024-08-26] MEDS: traZODone HCL 50 MG TABLET PO ×2 (00:49→02:58)
[2024-08-26 07:59] VITALS: BP 129/76; PULSE 88; RESP 18; TEMP 36.7; O2SAT 98
[2024-08-26 09:02] VITALS: BP 129/76
[2024-08-26] MEDS: busPIRone HCl 5 MG TABLET 15 MG PO (09:02)
[2024-08-26] MEDS: Propranolol HCL 20 MG TABLET PO (09:02)
[2024-08-26 09:03] VITALS: BP 129/76
[2024-08-26] MEDS: hydroCHLOROthiazide 50 MG TABLET PO (09:03)
[2024-08-26] MEDS: diazePAM 5 MG TABLET 10 MG PO (09:04)
[2024-08-26 09:05] VITALS: BP 129/76
[2024-08-26] MEDS: Spironolactone 25 MG TABLET 50 MG PO (09:05)
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
== END 2024-08-26 13:12 | disposition home or self-care (01) | DRG 885 ==
LOC: HO.ED 08-16 07:06 → HO.PM5 08-16 10:36
PROVIDERS: Physician Assistant Medical; Registered Nurse; Admitting Provider Psychiatry & Neurology Psychiatry; Emergency Provider Emergency Medicine; Visit Provider Psychiatry & Neurology Psychiatry
DX: F31.9 Bipolar disorder, unspecified (principal); Z87.891 Personal history of nicotine dependence; Z20.822 Contact with and (suspected) exposure to COVID-19; Z79.899 Other long term (current) drug therapy
CPT/HCPCS: 36415; 80053; 80061; 80143; 80178; 80179; 80307; 81003; 82565; 83036; 84443; 84520; 85025; 87635; 93005; 99285; S9485

== ENCOUNTER → 2024-08-15 13:50 | Outpatient (BNV) | payer OTHER, SELFPAY | PROVIDERS: Admitting Provider Psychiatry & Neurology Psychiatry; Emergency Provider Emergency Medicine; Visit Provider Internal Medicine Cardiovascular Disease | DX: Z13.6 Encounter for screening for cardiovascular disorders (principal) | CPT/HCPCS: 93010 ==

== ENCOUNTER → 2024-08-16 10:25 | Outpatient (BNV) | payer OTHER, SELFPAY | PROVIDERS: Admitting Provider Psychiatry & Neurology Psychiatry; Emergency Provider Emergency Medicine; Visit Provider Registered Nurse | DX: F31.5 Bipolar disorder, current episode depressed, severe, with psychotic features (principal); F29 Unspecified psychosis not due to a substance or known physiological condition | CPT/HCPCS: 90792; 99231; 99232 ==

== ENCOUNTER 2024-09-06 13:57 | Outpatient (AMB) | payer OTHER, SELFPAY ==
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
[2024-09-06 14:20] VITALS: BP 108/78; PULSE 94; TEMP 36.3; O2SAT 100; BMI 30.1
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
== END 2024-09-06 15:03 | disposition home or self-care (01) ==
LOC: HO.HMCH 13:58
PROVIDERS: PCP Physician Assistant; Visit Provider Nurse Practitioner Family
DX: F31.9 Bipolar disorder, unspecified (principal); F28 Other psychotic disorder not due to a substance or known physiological condition

== ENCOUNTER → 2024-09-06 13:57 | Outpatient (BNVA) | payer OTHER, SELFPAY | PROVIDERS: PCP Physician Assistant; Visit Provider Nurse Practitioner Family | DX: K21.9 Gastro-esophageal reflux disease without esophagitis (principal); F31.9 Bipolar disorder, unspecified; F28 Other psychotic disorder not due to a substance or known physiological condition | CPT/HCPCS: 99212 ==

== ENCOUNTER 2024-10-29 11:32 | Outpatient (AMB) | payer OTHER, SELFPAY ==
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
[2024-10-29 11:37] VITALS: BP 102/62; PULSE 58; TEMP 36.3; O2SAT 98; BMI 30.1
--- OUTSIDE RECORDS SUMMARY | 2024-10-29 12:24 | XMS_ITS | Patient Health Record ---
Author Organization [facility] Address [address] [place] [address] Care Team Providers Care Gas Pump Attendant Name Role Phone Pat Granados NP Primary Care Provider Azam Pressley Unavailable [phone] Allergies Allergen (clinical drug ingredient) Drug/Non Drug Allergy documented on EMR Reaction Allergy Type Onset Date Status General Anesthesia (uncoded) Malignant Hyperthermia Allergy Active Reason For Referral No Information Medications Medication SIG (Take, Route, Frequency, Duration) Notes Start Date End Date Status hydroCHLOROthiazide 50 MG 1 tablet in th e morning Orally Once a day; Duration: 30 day(s) Active hydrOXYzine HCl 25 MG/ML 2 ml as needed Intramuscular every 6 hrs; Duration: 30 day(s) Active Famotidine 20 MG 1 tablet at bedtime as needed Orally Twice a day Active Vitamin D High Potency 25 MC G (1000 UT) 1 capsule Orally Once a day; Duration: 30 day(s) Active Ibuprofen 800 MG 1 tablet with food o r milk as needed Orally Three times a day Active [place] Carbonate 300 MG 1 capsule at be dtime Orally Once a day; Duration: 30 day(s) Active Naltrexone HCl 50 MG 1 tablet Orally Onc e a day; Duration: 30 day(s) Active Propranolol HCl 20 MG 1 tablet on an emp ty stomach Orally 3 times daily Active clonazePAM 2 MG 1 tablet Orally Once a day Active OLANZapine 20 MG 1 tablet Orally Once a day; Duration: 30 day(s) Active aMILoride HCl 5 MG 1 tablet with food Orally Once a day; Duration: 30 day(s) Active Herman 3 1000 MG 1 capsule Orally Onc e a day; Duration: 30 day(s) Active Social History Tobacco Use: Social History Observation Description Date Details (start date - stop date) Current Smoker NA - NA Tobacco Use/Smoking Question Answer Notes Are you a: current smoker Alcohol Screen Question Answer Notes Did you have a drink containing alcohol in the p ast year? No Points 0 Interpretation Negative Problems Problem Type SNOMED Code ICD Code Onset Dates Problem Status W/U Status Risk Notes Problem Lower limb length difference (M21.70) Active confirmed Plan Of Treatment Pending Test Test Name Order Date [id number] Plate 04/12/2019 Insurance Providers Payer Name Payer Address Payer Phone Subscriber Number Group Number Insured Name Patient Relationship to Insured Coverage Start Date Coverage End Date [facility] [employer] Claims [address] [place] [id number] Kit Harrison Self - patient is the insured Medical (General) History Medical History History ICD Code osteoarthritis hip pain Depression High blood pressure Osteoporosis Psychiatric disorder raynauds disease Chicken pox Joint implants/screws Surgical History Surgery Date(Month/Year) shoulder surgery- left 2 X shoulder surgery-right shoulder replacement
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
--- OUTSIDE RECORDS SUMMARY | 2024-10-29 12:24 | XMS_ITS | Encounter Summary ---
Author Organization [facility] Address [address] [place] [address] Care Team Providers Care Lightning Rod Installer Name Role Phone Basim Pruett Primary Care Provider [phone] Reason for Visit * Reason Onset Date Comments PAC Referral Request 08/29/2022 [id number] REFERRAL 08/29/2022 Encounter Details Date Type Department Care Team (Late st Contact Info) Description 08/29/2022 Telephone [facility] Patient Access Center [address] [place] [id number] Telephone Intake, Staff PAC Referral Request; [id number] REFERRAL Social History Tobacco Use Types Packs/Day [...] asking for theMRI to be scheduled at [facility]. Please call patient with any questions at [phone] Thank you documented in this encounter Plan of Treatment Not on file documented as of this encounter Visit Diagnoses Not on filedocumented in this encounter Care Teams Lightning Rod Installer Relationship Specialty Start Date End Date Basim Pruett PA [address] [place] [address] [id number] PCP - General 12/23/22 documented as of this encounter
== END 2024-10-29 11:55 | disposition home or self-care (01) ==
LOC: HO.HMCH 11:33
PROVIDERS: PCP Physician Assistant; Visit Provider Physician Assistant
DX: I10 Essential (primary) hypertension (principal); N25.1 Nephrogenic diabetes insipidus; F31.9 Bipolar disorder, unspecified; R73.09 Other abnormal glucose; E66.811 Obesity, class 1; E23.2 Diabetes insipidus

== ENCOUNTER → 2024-10-29 11:32 | Outpatient (BNVA) | payer OTHER, SELFPAY | PROVIDERS: PCP Physician Assistant; Visit Provider Physician Assistant | DX: I10 Essential (primary) hypertension (principal); E09.9 Drug or chemical induced diabetes mellitus without complications; F31.9 Bipolar disorder, unspecified; E78.5 Hyperlipidemia, unspecified; K21.9 Gastro-esophageal reflux disease without esophagitis; N52.1 Erectile dysfunction due to diseases classified elsewhere; E66.811 Obesity, class 1; Z68.30 Body mass index [BMI] 30.0-30.9, adult; Z79.899 Other long term (current) drug therapy | CPT/HCPCS: 83036; 99212 ==

== ENCOUNTER 2025-01-14 13:15 | Outpatient (REF) | payer OTHER, SELFPAY ==
[2025-01-14 14:40] LABS: Lithium 0.77 mmol/L (0.60-1.20)
--- OUTSIDE RECORDS SUMMARY | 2025-01-14 17:22 | XMS_ITS | Clinical Summary ---
Author Organization [facility] Address [address] [place] [address] Care Team Providers Care Grade School Teacher Name Role Phone Basim Pruett Primary Care Provider [phone] Allergies Active Allergy Reactions Criticality Noted Date [...] 63 01/07/2023 8:18 AM EDT Temperature 36.3 C (97.3 F) 01/07/2023 7:00 AM EDT Respiratory Rate 16 01/07/2023 9:16 AM EDT [...] Zoster Vaccines (2 of 2) 04/07/2023 02/10/2023 Alcohol/Substance Use Screening 03/27/2024 Depression Screening and Follow-Up 03/27/2024 Social Drivers of Health Monika ual Screening 03/27/2024 COVID-19 Vaccine (6 - 2024-2 6 season) 2024 12/21/2022, 01/19/2022, 02/15/2021, Additional history exists Influenza Vaccine (#1) 2024 , 01/06/2022, 02/10/2021, Additional history exists DTaP,Tdap,and Td Vaccines (2 - Td or Tdap) 11/17/2029 11/18/2019 RSV Vaccine (60+ years old a nd patients) (1 - 1-dose 75+ series) 2046 Medical Devices Implanted Type Area Insecticide Sprayer Device Identifier Shelf Expiration Date Model / Serial / Lot Head Humeral Bipolar [id number] Versa-Dial - [id number] Implanted:Qty: 1 on 05/23/2017 by Chris Rodriguez MD at [facility] Implant Left: Shoulder Isatu 04/26/2027 [id number] / / [id number] Adapter Taper Versa-Dial - [id number] Implanted:Qty: 1 on 05/23/2017 by Chris Rodriguez MD at [facility] Implant Left: Shoulder Isatu 04/28/2027 [id number] / / [id number] Stem Humeral Primary Micro Porous Plasma [id number] Comprehensive - [id number] Implanted:Qty: 1 on 05/23/2017 by Chris Rodriguez MD at [facility] Implant Left: Shoulder Isatu 04/18/2027 [id number] / / [id number] Baseplate Mini W/Taper Adapter 25mm Glenosphere - [id number] Implanted:Qty: 1 on 01/06/2023 by Chris Rodriguez MD at [facility] Implant Left: Humerus Isatu 10/12/2032 [id number] / / [id number] Glenosphere Reverse Shoulder Standard 36mm Versa-Dial - [id number] Implanted:Qty: 1 on 01/06/2023 by Chris Rodriguez MD at [facility] Implant Left: Humerus Isatu 08/29/2032 [id number] / / [id number] Bearing Humeral Standard 36mm Comprehensive Vivacit-E - [id number] Implanted:Qty: 1 on 01/06/2023 by Chris Rodriguez MD at [facility] Implant Left: Humerus Isatu 11/01/2027 [id number] / / [id number] Stem Humeral Size 13 Standard - [id number] Implanted:Qty: 1 on 01/06/2023 by Chris Rodriguez MD at [facility] Implant Left: Humerus Isatu 01/12/2032 [id number] / / [id number] Tray Humeral Neutral 6mm - [id number] Implanted:Qty: 1 on 01/06/2023 by Chris Rodriguez MD at [facility] Implant Left: Humerus Isatu 10/16/2032 [id number] / / [id number] Screw Fixed Locking With 3.5 Hex [id number] - [id number] Implanted:Qty: 1 on 01/06/2023 by Chris Rodriguez MD at [facility] Screw Left: Humerus Isatu 09/13/2032 [id number] / / [id number] Screw Fixed Locking With 3.5 Hex 4.21viu19cq - [id number] Implanted:Qty: 1 on 01/06/2023 by Chris Rodriguez MD at [facility] Screw Left: Humerus Isatu 11/05/2031 [id number] / / [id number] Screw Central With 3.5 Hex Titanium 6.6xho49tw - [id number] Implanted:Qty: 1 on 01/06/2023 by Chris Rodriguez MD at [facility] Screw Left: Humerus Isatu 2032 [id number] / / [id number] Explanted Type Area Insecticide Sprayer Device Identifier Shelf Expiration Date Model / Serial / Lot Humeral Head Explanted:Qty: 1 on 05/23/2017 at [facility] Left: Shoulder [employer] ? / / Insurance [facility] [place] [id number] Advance Directives * Full Code (Latest Code Status on File) Date Activated Date Inactivated Comments 01/06/2023 2:05 PM 01/07/2023 2:44 PM * Presumed Full Code Date Activated Date Inactivated Comments 01/06/2023 7:07 AM 01/06/2023 2:05 PM * Full Code Date Activated Date Inactivated Comments 05/23/2017 3:47 PM 05/24/2017 4:58 PM Care Teams Grade School Teacher Relationship Specialty Start Date End Date Basim Pruett PA [address] [place] [address] PCP - General 12/23/22
--- OUTSIDE RECORDS SUMMARY | 2025-01-14 17:22 | XMS_ITS | Encounter Summary ---
Author Organization [facility] Address [address] [place] [address] Care Team Providers Care Project Buyer Name Role Phone Basim Pruett Primary Care Provider [phone] Reason for Visit * Reason Onset Date Comments PAC Referral Request 08/29/2022 [id number] REFERRAL 08/29/2022 Encounter Details Date Type Department Care Team (Late st Contact Info) Description 08/29/2022 Telephone [facility] [address] [place] [address] Telephone Intake, Staff PAC Referral Request; [id number] REFERRAL Social History Tobacco Use Types Packs/Day [...] asking for theMRI to be scheduled at [facility]. Please call patient with any questions at [phone] Thank you documented in this encounter Plan of Treatment Not on file documented as of this encounter Visit Diagnoses Not on filedocumented in this encounter Care Teams Project Buyer Relationship Specialty Start Date End Date Basim Pruett PA [address] [place] [address] [phone] PCP - General 12/23/22 documented as of this encounter
--- OUTSIDE RECORDS SUMMARY | 2025-01-14 17:22 | XMS_ITS | Patient Health Record ---
Author Organization [facility] Address [address] [place] [address] Care Team Providers Care Transplanter Name Role Phone Pat Granados NP Primary Care Provider Azma Pressley Unavailable [phone] Allergies Allergen (clinical drug ingredient) Drug/Non Drug [...] needed Orally Three times a day Active [place] Carbonate 300 MG 1 capsule at be [...] Once a day; Duration: 30 day(s) Active Page 3 1000 MG 1 capsule Orally Onc [...] Treatment Pending Test Test Name Order Date [id number] Plate 04/12/2019 Insurance Providers Payer Name Payer Address Payer Phone Subscriber Number Group Number Insured Name Patient Relationship to Insured Coverage Start Date Coverage End Date [facility] [employer] Claims [address] [place] [id number] Kit Harrison Self - patient is the insured Medical (General) History Medical History History ICD Code osteoarthritis hip pain Depression High blood pressure Osteoporosis Psychiatric disorder raynauds disease Chicken pox Joint implants/screws Surgical History Surgery Date(Month/Year) shoulder surgery- left 2 X shoulder surgery-right shoulder replacement
--- OUTSIDE RECORDS SUMMARY | 2025-01-14 17:22 | XMS_ITS | Encounter Summary ---
Author Organization [facility], Address [address] [place] [address] Phone Care Team Providers Care Filling Machine Operator Name Role Phone Basim Pruett Primary Care Provider Encounter Details Date Type Department Care Team (Late st Contact Info) Description 10/18/2022 Documentation Only [facility], [address] [place] [address] Junito Stock PA [address] [place] [address] Social History Tobacco Use Types Packs/Day Years Used Date Smoking Tobacco: Every Day Cigarettes 0.3 12.3 Started: 10/07/2012 Alcohol Use Standard Drinks/Week Comments [...] on filedocumented in this encounter Care Teams Filling Machine Operator Relationship Specialty Start Date End Date Basim Pruett PA [address] [place] [address], [address] [place] [address] PCP - General Physician [employer]oured [employer] Officer 07/11/22 documented as of this encounter
--- OUTSIDE RECORDS SUMMARY | 2025-01-14 17:22 | XMS_ITS | Encounter Summary ---
Author Organization [facility], Address [address] [place] [address] Phone Care Team Providers Care Machinery Repair Maintenance Supervisor Name Role Phone Basim Pruett Primary Care Provider [phone] Encounter Details Date Type Department Care Team (Late st Contact Info) Description 02/28/2023 Documentation Only [facility], [address] [place] [address] Junito Stock PA [address] [place] [address] Social History Tobacco Use Types [...] on filedocumented in this encounter Care Teams Machinery Repair Maintenance Supervisor Relationship Specialty Start Date End Date Basim Pruett PA [address] [place] [address], [address] [place] [address] PCP - General Physician Pinion Sorter 07/11/22 documented as of this encounter
--- OUTSIDE RECORDS SUMMARY | 2025-01-14 17:22 | XMS_ITS | Encounter Summary ---
Author Organization [facility], Address [address] [place] [address] Phone Care Team Providers Care Armored Machine Operator Name Role Phone Basim Pruett Primary Care Provider [phone] Encounter Details Date Type Department Care Team (Late st Contact Info) Description 05/18/2021 Documentation Only [facility], [address] [place] [address] Canelo Ivan MD [address] [facility] [id number] Social History Tobacco Use Types Packs/Day Years [...] on filedocumented in this encounter Care Teams Armored Machine Operator Relationship Specialty Start Date End Date Basim Pruett PA [address] [place] [address] Drive, [address] [place] [address] PCP - General Physician Commercial Collections Driver 07/11/22 documented as of this encounter
--- OUTSIDE RECORDS SUMMARY | 2025-01-14 17:22 | XMS_ITS | Clinical Summary ---
Author Organization [facility], Address [address] [place] [address] [place] [address] Phone Care Team Providers Care Business Excellence Leader Name Role Phone Basim Pruett Primary Care Provider [phone] Allergies Active Allergy Reactions Criticality Noted Date Comments Succinylcholine Other (see comments) High 05/23/2017 (Uncle had MH) Medications cholecalciferol (VITAMIN D-3) 25 MCG (1000 UT) capsule TK 1 C PO ONCE D 9 Active naltrexone (DEPADE) 50 MG tablet TK 1 T PO QD 9 Active [place]-3 Fatty Acids (FISH OIL CONCENTRATE) 1000 MG [...] TWICE DAILY NEEDED FOR CONSTIPATION 3 Active hydroCHLOROthia zide (HYDRODIURIL) 50 MG tablet Take 1 tablet (50 mg total) by mouth 1 (one) time each day 90 tablet 3 4 Active aMILoride (MIDAMOR) 5 MG tablet Take 2 tablets (10 mg total) by mouth 1 (one) time each day 180 tablet 3 5 11/20/19 26 Active Active Problems Problem Noted Date Diagnosed Date 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 Overview (12/26/2023): Replacing diagnoses that were inactivated after the 12/26/23 Regulatory Import Diabetes insipidus 04/03/2019 Polyuria 04/03/2019 Bipolar I disorder Chronic kidney disease stage 2 Resolved Problems Problem Noted Date Diagnosed Date Resolved Date Electrolyte imbalance 04/03/20192020 Pain in left shoulder 10/07/20152020 Encounters Date Type Department Care Team Description 11/19/2024 Refill [facility], [address] [place] [address] Lela Alvares from Last 3 Months Immunizations Immunization Administration Dates Next Due Influenza, Quadrivalent, Preservative Free 01/01 Family History Medical History Relation Comments Cancer Father aunt and uncle/h is brother and sister Relation Status Comments Father Alive Mother Alive Social History Tobacco Use Types Packs/Day Years Used Date Smoking Tobacco: Every Day Cigarettes 0.3 12.3 Started: 10/07/2012 Tobacco Cessation:Ready to Q uit: [...] 2020 Influenza Vaccine (#1) 2024 01/02/2020 Insurance [facility] One Care Dual SNP ([id number]) [place] [id number] [place] [address] [place] [id number] Care Teams Business Excellence Leader Relationship Specialty Start Date End Date Basim Pruett PA [address] [facility], [address] [place], [place] [id number] PCP - General Physician Grants Analyst 07/11/22
[2025-01-14 17:38] LABS: Alanine Aminotransferase 26 U/L (0-40); Albumin Level 4.7 g/dL (3.5-5.0); Alkaline Phosphatase 52 U/L (39-117); Anion Gap 8 (12-20); Aspartate Amino Transferase 26 U/L (5-37); Blood Urea Nitrogen 12 mg/dL (9-16); Calcium 10.0 mg/dL (8.4-10.2); Carbon Dioxide 25 mmol/L (22-29); Chloride 110 mmol/L (96-108); Estimated Glomerular Filt Rate > 60; Potassium 4.3 mmol/L (3.3-5.1); Sodium 139 mmol/L (135-145); Thyroid Stimulating Hormone 0.79 uIU/mL (0.32-4.0); Total Protein 6.7 g/dL (6.5-8.0)
== END 2025-01-14 13:16 | disposition home or self-care (01) ==
LOC: HO.LAB 13:15
PROVIDERS: PCP Physician Assistant; Visit Provider Registered Nurse
DX: Z51.81 Encounter for therapeutic drug level monitoring (principal); Z79.899 Other long term (current) drug therapy
CPT/HCPCS: 36415; 80053; 80178; 84443